=== PATIENT | female | born 1965 ===

== ENCOUNTER 2016-07-24 17:31 | Emergency (ER) | payer OTHER ==
[2016-07-24 17:39] VITALS: BMI 29.0
[2016-07-24 17:41] VITALS: RESP 18; TEMP 98.3
[2016-07-24 18:07] LABS: ADD MANUAL DIFF? NO
[2016-07-24 18:12] LABS: BASO # 0.02 K/mm3 (0.0-2.0); BASO % 0.3 % (0.0-3.0); EOS # 0.3 (0.0-0.7); EOS % 4.2 % (1.5-5.0); GRAN # 3.71 (1.4-6.5); HEMATOCRIT 33.5 % (36.0-48.0); LYMPH # 2.1 (1.2-3.4); LYMPH % 31.9 % (22.0-35.0); MEAN CELL VOLUME 85.2 fL (80.0-105.0); MEAN CORPUSCULAR HGB CONC 32.8 g/dl (31.0-37.0); MEAN PLATELET VOLUME 9.6 fl (7.0-11.0); MONO # 0.5 (0.1-0.6); MONO % 7.6 % (1.0-6.0); PLATELET COUNT 256 10^3/uL (120.0-450.0); RED CELL DISTRIBUTION WIDTH 14.5 % (11.5-14.5); WHITE BLOOD COUNT 6.6 10^3/ul (4.5-11.0)
[2016-07-24 18:21] LABS: ALB/GLOB RATIO 1.1 (1.1-1.8); ALKALINE PHOSPHATASE 105 U/L (38-133); ALT/SGPT 37 U/L (7-56); AST/SGOT 25 U/L (15-39); BILIRUBIN,TOTAL 0.4 mg/dL (0.2-1.3); BLOOD UREA NITROGEN 19 mg/dL (7-21); CALCIUM 9.4 mg/dL (8.4-10.5); CARBON DIOXIDE 33 mmol/L (21-33); CHLORIDE 97 mmol/L (98-107); GFR AFRICAN-AMERICAN > 60; GLUCOSE,RANDOM 98 mg/dL (70-110); SODIUM 136 mmol/L (132-148); TOTAL PROTEIN 7.6 g/dL (5.8-8.3)
--- NOTE | 2016-07-24 18:24 | ED PDOC ---
Arrival/HPI - General Chief Complaint: Chest Pain Time Seen by Provider: 07/24/16 17:42 Historian: Patient - History of Present Illness Narrative History of Present Illness (Text): 07/24/16 18:00 51 year old female presents to the emergency room complaining of left sided chest pain that radiates to the arm. She notes this pain developed last night while in bed. She also reports that the pain went to her shoulders and back today. Patient notes nausea, sweating, but denies any other complaints at this time. PMD: Dr. Claros Time/Duration: 24 hours Symptom Onset: Sudden Symptom Course: Unchanged Activities at Onset: Rest Modifying Factors (Text): none Context: Home Associated Symptoms (Text): sweating, nausea Past Medical History - Provider Review Nursing Documentation Reviewed: Yes - Infectious Disease Hx of Infectious Diseases: None - Tetanus Immunization Tetanus Immunization: Unknown - Cardiac Hx Cardiac Disorders: Yes Hx Hypertension: Yes Hx Pacemaker: No - Pulmonary Hx Respiratory Disorders: Yes Hx Asthma: Yes - Neurological Hx Neurological Disorder: No Hx Paralysis: No - HEENT Hx HEENT Disorder: No - Renal Hx Renal Disorder: No - Endocrine/Metabolic Hx Endocrine Disorders: No - Hematological/Oncological Hx Blood Disorders: No Hx Blood Transfusions: No Hx Blood Transfusion Reaction: No - Integumentary Hx Dermatological Disorder: No - Musculoskeletal/Rheumatological Hx Musculoskeletal Disorders: Yes - Gastrointestinal Hx Gastrointestinal Disorders: Yes - Genitourinary/Gynecological Hx Genitourinary Disorders: No - Psychiatric Hx Psychophysiologic Disorder: No Hx Emotional Abuse: No Hx Physical Abuse: No Hx Substance Use: No - Past Surgical History Past Surgical History: Non-Contributing - Surgical History Hx Orthopedic Surgery: Yes - Anesthesia Hx Anesthesia Reactions: No Hx Malignant Hyperthermia: No - Suicidal Assessment Feels Threatened In Home Enviroment: No Family/Social History - Physician Review Nursing Documentation Reviewed: Yes Family/Social History: No Known Family HX Smoking Status: Former Smoker Hx Alcohol Use: No Amount per day: 0 Hx Substance Use: No Hx Substance Use Treatment: No Allergies/Home Meds Allergies/Adverse Reactions: Allergies aspirin Allergy (Verified 07/24/16 21:46) RASH levofloxacin Allergy (Verified 07/24/16 17:43) RASH moxifloxacin Allergy (Verified 07/24/16 17:43) RASH moxifloxacin HCl [From Avelox] Allergy (Verified 07/24/16 17:43) URTICARIA pineapple Allergy (Verified 07/24/16 17:43) RASH Home Medications: Home Meds Medication Instructions Recorded Confirmed Losartan [Cozaar] 100 mg PO DAILY 06/02/14 03/05/16 Albuterol HFA [Ventolin HFA 90 2 puff INH Q6H PRN 05/29/15 03/05/16 mcg/actuation (8 g)] Budesonide [Pulmicort] 1 puff INH DAILY 05/29/15 03/05/16 Ipratropium 0.02% [Atrovent] 0.5 mg INH PRN PRN 05/29/15 03/05/16 Montelukast Sodium [Singulair] 10 mg PO DAILY 05/29/15 03/05/16 Simvastatin 10 mg PO DAILY 05/29/15 03/05/16 Naproxen 500 mg PO BID PRN 03/01/16 03/05/16 oxyCODONE/Acetaminophen [Percocet 1 tab PO PRN PRN 03/01/16 03/05/16 5/325 mg Tab] Review of Systems - Physician Review All systems were reviewed & negative as marked: Yes - Review of Systems Constitutional: Night Sweats. absent: Fevers Respiratory: absent: Cough Cardiovascular: Chest Pain Gastrointestinal: Nausea Physical Exam Vital Signs Reviewed: Yes Vital Signs Temp Pulse Resp BP Pulse Ox 07/24/16 21:47 81 18 133/68 100 07/24/16 17:40 98.3 F 91 H 18 136/80 98 Temperature: Afebrile Blood Pressure: Normal Pulse: Tachycardic Respiratory Rate: Normal Appearance: Positive for: Well-Appearing, Non-Toxic, Comfortable Pain Distress: None Mental Status: Positive for: Alert and Oriented X 3 - Systems Exam Head: Present: Atraumatic, Normocephalic Pupils: Present: PERRL Extroacular Muscles: Present: EOMI Conjunctiva: Present: Normal Mouth: Present: Moist Mucous Membranes Neck: Present: Normal Range of Motion Respiratory/Chest: Present: Clear to Auscultation, Good Air Exchange. No: Respiratory Distress, Accessory Muscle Use Cardiovascular: Present: Regular Rate and Rhythm, Normal S1, S2. No: Murmurs Abdomen: Present: Normal Bowel Sounds. No: Tenderness, Distention, Peritoneal Signs Upper Extremity: Present: Normal Inspection. No: Cyanosis, Edema Lower Extremity: Present: Normal Inspection. No: Edema Neurological: Present: GCS=15, CN II-XII Intact, Speech Normal Skin: Present: Warm, Dry, Normal Color. No: Rashes Psychiatric: Present: Alert, Oriented x 3, Normal Insight, Normal Concentration Medical Decision Making ED Course and Treatment: 07/24/16 18:00 Impression: 51 year old female with left sided chest pain that radiates to arms. Differential Diagnosis included but are not limited to: r/o acs vs dissection vs pe. Plan: -- EKG -- Chest Xray -- Urinalysis -- Labs -- Zofran -- Reassess and disposition Prior Visits: Notes and results from previous visits were reviewed. Progress Notes: EKG: Ordered, reviewed, and independently interpreted the EKG. Rate : 91 BPM Rhythm : NSR Interpretation : No ST/T changes Comparison : No changes from previous EKG on 07/28/15 07/24/16 22:28 pt reassessed. initialy c/o of "migraine bowden". reglan bendaryl ordered. pt allergic to asa. pt now reports symptoms resolved. suggested obs in hospital. pt declines and states prefers to f/u outpt with cardiology. understands to return with worsening symptoms or concerns. 07/24/16 22:30 noted neg stress 2013. 07/24/16 22:43 pt notified of incident findings encouraged to get ct report and discuss with their pmd - Lab Interpretations Lab Results: 07/24/16 18:00 07/24/16 18:00 Lab Results 07/24/16 18:33: Urine Color Yellow, Urine Appearance Clear, Urine pH 7.0, Ur Specific [place] <= 1.005, Urine Protein Negative, Urine Glucose (UA) Negative, Urine Ketones Negative, Urine Blood Small H, Urine Nitrate Negative, Urine Bilirubin Negative, Urine Urobilinogen 0.2, Ur Leukocyte Esterase Negative, Urine RBC 0 - 2, Urine WBC Negative, Ur Epithelial Cells 0 - 2, Urine HCG, Qual Negative 07/24/16 18:00: WBC 6.6 D, RBC 3.93, Hgb 11.0 L, Hct 33.5 L, MCV 85.2, MCH 28.0 , MCHC 32.8, RDW 14.5, Plt Count 256, MPV 9.6, Gran % 56.0, Lymph % (Auto) 31.9 , [place] % (Auto) 7.6 H, Eos % (Auto) 4.2, Baso % (Auto) 0.3, Gran # 3.71, Lymph # 2.1, [place] # 0.5, Eos # 0.3, Baso # 0.02, PT 10.7, INR 0.99, APTT 27.6, D-Dimer , Quantitative 1.61 H, Sodium 136, Potassium 4.0, Chloride 97 L, Carbon Dioxide 33, Anion Gap 10, BUN 19, Creatinine 0.7, Est GFR ( Amer) > 60, Est GFR ( Non-Af Amer) > 60, Random Glucose 98, Calcium 9.4, Magnesium 2.0, Total Bilirubin 0.4, AST 25, ALT 37, Alkaline Phosphatase 105, Lactate Dehydrogenase 509, Total Creatine Kinase 62, Troponin I < 0.01, NT-Pro-B Natriuret Pep 120, Total Protein 7.6, Albumin 4.0, Globulin 3.6, Albumin/Globulin Ratio 1.1 I have reviewed the lab results: Yes - RAD Interpretation Radiology Orders: 07/24/16 17:52 CHEST PORTABLE [RAD] Stat 07/24/16 20:29 ANGIOGRAPHY DISECTION PROTOCOL [CT] Stat - EKG Interpretation Interpreted by ED Physician: Yes Type: 12 lead EKG - Medication Orders Current Medication Orders: Discontinued Medications Aspirin (Aspirin) 325 mg PO STAT STA Stop: 07/24/16 21:42 Last Admin: 07/24/16 21:45 Dose: Not Given Non-Admin Reason: Patient Refused Diphenhydramine HCl (Benadryl) 25 mg IVP STAT STA Stop: 07/24/16 21:52 Last Admin: 07/24/16 21:54 Dose: 25 MG IVP Administration Document 07/24/16 21:54 SE (Rec: 07/24/16 21:54 SE [id number]) Charges for Administration # of IVP Administrations 1 Diphenhydramine HCl (Benadryl) Confirm Administered Dose 50 mg .ROUTE .STK-MED ONE Stop: 07/24/16 21:52 Last Admin: 07/24/16 21:54 Dose: Iohexol (Omnipaque 350 150 Ml) Confirm Administered Dose 150 ml .ROUTE .STK-MED ONE Stop: 07/24/16 20:55 Metoclopramide HCl (Reglan) 10 mg IVP STAT STA Stop: 07/24/16 21:52 Last Admin: 07/24/16 21:55 Dose: 10 MG IVP Administration Document 07/24/16 21:55 SE (Rec: 07/24/16 21:55 SE [id number]) Charges for Administration # of IVP Administrations 1 Ondansetron HCl (Zofran Inj) 4 mg IVP STAT STA Stop: 07/24/16 17:59 Last Admin: 07/24/16 18:40 Dose: 4 MG IVP Administration Document 07/24/16 18:40 SE (Rec: 07/24/16 18:40 SE [id number]) Charges for Administration # of IVP Administrations 1 - Scribe Statement The provider has reviewed the documentation as recorded by the Zuri Bethea training under Rubio Villalta All medical record entries made by the Doniblakia were at my direction and personally dictated by me. I have reviewed the chart and agree that the record accurately reflects my personal performance of the history, physical exam, medical decision making, and the department course for this patient. I have also personally directed, reviewed, and agree with the discharge instructions and disposition. Disposition/Present on Arrival - Present on Arrival Any Indicators Present on Arrival: No History of DVT/PE: No History of Uncontrolled Diabetes: No Urinary Catheter: No History of Decub. Ulcer: No History Surgical Site Infection Following: None - Disposition Have Diagnosis and Disposition been Completed?: Yes Diagnosis: Chest pain, Headache Disposition: HOME/ ROUTINE Disposition Time: 22:30 Patient Problems: Current Active Problems Problem Status Diagnosed Asthma Acute Asthma attack Acute Chest pain Acute Chronic obstructive lung disease Acute Headache Acute URI (upper respiratory infection) Acute Condition: STABLE Discharge Instructions (ExitCare): Chest Pain (ED), Acute Headache (ED) Additional Instructions: please follow up with your doctor/specialsit. return to er with worsening symptoms or concerns. please discuss the results of your ct with your pmd. you may need additional followup Referrals: Itzel Claros MD [Primary Care Provider] - Follow up with primary Tim Smith MD [Staff Provider] - Follow up with primary
[2016-07-24 18:32] LABS: INR 0.99 (0.93-1.08); PARTIAL THROMBOPLASTIN TIME 27.6 Seconds (23.7-30.8)
[2016-07-24 18:35] LABS: TROPONIN I < 0.01 ng/mL
[2016-07-24 18:51] LABS: URINE BILIRUBIN NEGATIVE (NEGATIVE); URINE BLOOD SMALL (NEGATIVE); URINE GLUCOSE (UA) NEGATIVE (NEGATIVE); URINE KETONE NEGATIVE (NEGATIVE); URINE LEUKOCYTE ESTERASE NEGATIVE Leu/uL (NEGATIVE); URINE PROTEIN NEGATIVE mg/dL (<30 mg/dL); URINE UROBILINOGEN 0.2 E.U./dL (<1 E.U./dL)
[2016-07-24 18:53] LABS: URINE APPEARANCE CLEAR (CLEAR); URINE COLOR YELLOW (YELLOW)
[2016-07-24 19:16] LABS: URINE EPITHELIAL CELLS 0 - 2 /hpf (0-5); URINE RBC 0 - 2 /hpf (0-2); URINE WBC NEGATIVE /hpf (0-6)
[2016-07-24 20:54] LABS: D DIMER 1.61 mg/L FEU (0-0.50)
[2016-07-24] MEDS ORDERED: DiphenhydrAMINE 50 mg/ml Inj ONE (21:51)
[2016-07-24] MEDS ORDERED: DiphenhydrAMINE 50 mg/ml Inj IVP STA (21:51)
[2016-07-24 21:58] VITALS: BP 133/68; PULSE 81; O2SAT 100
--- NOTE | 2016-07-24 22:39 | CT ---
EXAM: CT Angiography Chest Without and With Intravenous Contrast CT Angiography Abdomen and Pelvis Without and With Intravenous Contrast CLINICAL HISTORY: 51 years old, female; Pain; Other: Radiating to back; Chest pain and other: Back; Additional info: Cp radiating to back R/O dissection, pe TECHNIQUE: Axial computed tomographic angiography images of the chest, abdomen and pelvis without and with intravenous contrast using CT angiography protocol. This CT exam was performed using one or more of the following dose reduction techniques: automated exposure control, adjustment of the mA and/or kV according to patient size, and/or use of iterative reconstruction technique. This CT exam was performed using one or more of the following dose reduction techniques: automated exposure control, adjustment of the mA and/or kV according to patient size, and/or use of iterative reconstruction technique. MIP reconstructed images were created and reviewed. Coronal and sagittal reformatted images were created and reviewed. CONTRAST: 148 mL of OMNI 350 administered intravenously. EXAM DATE/TIME: 07/24/2016 8:29 PM COMPARISON: Prior CT chest of 06/02/2015 FINDINGS: LIMITATIONS: Exam is limited by mild respiratory motion artifact. VASCULATURE: AORTA: No evidence of aortic dissection or aneurysm. PULMONARY ARTERIES: Contrast opacification of the pulmonary arteries is adequate, and there are no filling defects seen to suggest pulmonary embolism. GREAT VESSELS OF AORTIC ARCH: No evidence of occlusion or significant stenosis. CELIAC TRUNK AND MESENTERIC ARTERIES: No occlusion or significant stenosis. RENAL ARTERIES: No evidence of occlusion or significant stenosis. ILIAC ARTERIES: No evidence of occlusion or significant stenosis. CHEST: LUNGS: Incidental 7 mm noncalcified pulmonary nodule in the right upper lobe, image 100/series 3, stable in appearance compared to the prior CT. For high -risk patients recommend follow-up CT in 9-15 months. For low-risk patients recommend follow-up CT in 15 months. If no change, no further follow-up. No evidence of significant focal consolidation/infiltrate in the lungs. No evidence of diffuse pulmonary vascular congestion. PLEURAL SPACE: No pneumothorax or pleural effusions seen. HEART: No evidence of significant pericardial effusion. ABDOMEN: LIVER: Fatty infiltration of the liver. GALLBLADDER AND BILE DUCTS: No evidence of acute cholecystitis. PANCREAS: No evidence of acute pancreatitis. SPLEEN: No acute abnormality of the spleen identified. ADRENALS: No acute abnormality of the adrenal glands identified. KIDNEYS AND URETERS: Small 1 cm mildly complex cystic lesion incidentally noted in the right kidney. This has a density suggestive of fluid, and contains a 4 mm calcification in its posterior wall. Recommend further evaluation with renal protocol CT or MRI, on a nonemergent basis. No acute abnormality of the kidneys identified. STOMACH AND BOWEL: Colonic diverticulosis, with no evidence of acute diverticulitis. Otherwise, no significant abnormality of the bowel is identified. No acute abnormality of the stomach or duodenum identified. No evidence of small bowel obstruction. APPENDIX: Normal appendix is not seen, however, there are no significant inflammatory changes visualized in the expected location of the appendix to suggest appendicitis. Recommend clinical correlation. PELVIS: BLADDER: 0 No acute abnormality of the bladder identified. REPRODUCTIVE: No acute abnormality of the uterus identified. No evidence of large adnexal masses. CHEST, ABDOMEN and PELVIS: INTRAPERITONEAL SPACE: No evidence of free air or free fluid. BONES/JOINTS: No acute bony abnormality identified. SOFT TISSUES: No acute abnormality of the soft tissues identified. LYMPH NODES: No evidence of diffuse lymphadenopathy. IMPRESSION: - No evidence of aortic dissection or other significant acute abnormality. - Incidental 7 mm pumonary nodule. See recommendations above. - Incidental small mildly complex cystic lesion in the right kidney. - Colonic diverticulosis. - See above for remaining findings.
--- NOTE | 2016-07-25 10:01 | RAD ---
HISTORY: cp COMPARISON: 12/20/2015 FINDINGS: LUNGS: No active pulmonary disease. PLEURA: No significant pleural effusion identified, no pneumothorax apparent. CARDIOVASCULAR: Normal. OSSEOUS STRUCTURES: No significant abnormalities. VISUALIZED UPPER ABDOMEN: Normal. OTHER FINDINGS: None. IMPRESSION: No active disease.
--- NOTE | 2016-07-25 10:50 | CARD ---
APPROVED REPORT EKG Measurement Heart [id number] <Conclusion> Normal sinus rhythm Normal ECG
== END 2016-07-24 22:49 | disposition home or self-care (01) ==
LOC: ED 17:31
DX: R07.9 Chest pain, unspecified (principal); R51 Headache; I10 Essential (primary) hypertension; Z87.891 Personal history of nicotine dependence
CPT/HCPCS: 71010; 71275; 74175; 80053; 81001; 82550; 83615; 83735; 83880; 84484; 84703; 85025; 85378; 85610; 85730; 93005; 96374; 96375; 99284; J1200; J2405; J2765; Q9967

== ENCOUNTER 2017-03-18 09:26 | Inpatient (IN) | payer OTHER ==
[2017-03-18] MEDS: Albuterol-Ipratrop 3 mg / 0.5 (3 ml) UD IH SCH ×4 (09:50→20:30)
--- NOTE | 2017-03-18 09:57 | ED PDOC ---
Arrival/HPI - General Chief Complaint: Shortness Of Breath Time Seen by Provider: 03/18/17 09:46 - History of Present Illness Narrative History of Present Illness (Text): 51F hx of asthma c/o sob/cough/wheezing for 3 days and blood mixed in with her sputum since yesterday. inhaler not helping. Past Medical History - Infectious Disease Hx of Infectious Diseases: None - Tetanus Immunization Tetanus Immunization: Unknown - Reproductive Menopause: Yes - Cardiac Hx Cardiac Disorders: Yes Hx Hypertension: Yes Hx Pacemaker: No - Pulmonary Hx Respiratory Disorders: Yes Hx Asthma: Yes - Neurological Hx Neurological Disorder: No - HEENT Hx HEENT Disorder: No - Renal Hx Renal Disorder: No - Endocrine/Metabolic Hx Endocrine Disorders: No - Hematological/Oncological Hx Blood Disorders: No - Integumentary Hx Dermatological Disorder: No - Musculoskeletal/Rheumatological Hx Musculoskeletal Disorders: Yes Hx Falls: No - Gastrointestinal Hx Gastrointestinal Disorders: Yes - Genitourinary/Gynecological Hx Genitourinary Disorders: No - Psychiatric Hx Psychophysiologic Disorder: No Hx Emotional Abuse: No Hx Physical Abuse: No Hx Substance Use: No - Past Surgical History Past Surgical History: Non-Contributing - Surgical History Hx Orthopedic Surgery: Yes - Anesthesia Hx Anesthesia Reactions: No Hx Malignant Hyperthermia: No - Suicidal Assessment Feels Threatened In Home Enviroment: No Family/Social History Family/Social History: Other (nc) Smoking Status: Former Smoker Hx Alcohol Use: No Amount per day: 0 Hx Substance Use: No Hx Substance Use Treatment: No Allergies/Home Meds Allergies/Adverse Reactions: Allergies aspirin Allergy (Verified 03/18/17 09:34) RASH levofloxacin Allergy (Verified 03/18/17 09:34) RASH moxifloxacin Allergy (Verified 03/18/17 09:34) RASH moxifloxacin HCl [From Avelox] Allergy (Verified 03/18/17 09:34) URTICARIA pineapple Allergy (Verified 03/18/17 09:34) RASH Home Medications: Home Meds Medication Instructions Recorded Confirmed Losartan [Cozaar] 100 mg PO DAILY 06/02/14 03/18/17 Albuterol HFA [Ventolin HFA 90 2 puff INH Q6H PRN 05/29/15 03/18/17 mcg/actuation (8 g)] Budesonide [Pulmicort] 1 puff INH DAILY 05/29/15 03/18/17 Montelukast Sodium [Singulair] 10 mg PO DAILY 05/29/15 03/18/17 Simvastatin 10 mg PO DAILY 05/29/15 03/18/17 Review of Systems - Physician Review All systems were reviewed & negative as marked: Yes - Review of Systems Constitutional: absent: Fatigue, Fevers Respiratory: SOB, Cough, Sputum, Wheezing Cardiovascular: absent: Chest Pain Gastrointestinal: absent: Nausea, Vomiting Musculoskeletal: Other (r knee pain arthroscopic surgery 3 weeks ago) Neurological: absent: Headache, Focal Weakness Physical Exam Vital Signs Reviewed: Yes Vital Signs Temp Pulse Resp BP Pulse Ox 03/18/17 13:02 85 18 144/72 98 03/18/17 10:00 22 98 03/18/17 09:44 98.8 F 88 18 166/65 H 98 Appearance: Positive for: Non-Toxic Pain Distress: Mild Mental Status: Positive for: Alert and Oriented X 3 - Systems Exam Head: Present: Atraumatic Mouth: Present: Moist Mucous Membranes Nose (Internal): No: Epistaxis Neck: Present: Normal Range of Motion Respiratory/Chest: Present: Wheezes. No: Accessory Muscle Use Cardiovascular: Present: Regular Rate and Rhythm Abdomen: No: Tenderness, Distention Upper Extremity: Present: NORMAL PULSES Lower Extremity: No: Edema Neurological: Present: GCS=15, Motor Func Grossly Intact, Normal Sensory Function Skin: Present: Warm, Dry Psychiatric: Present: Alert, Oriented x 3 Medical Decision Making ED Course and Treatment: ecg- nsr 83, nl axis, nl int, no acute ischemia pt still w sig wheezing and sob despite duoneb x3 disc w Dr Claros who will admit - Lab Interpretations Lab Results: 03/18/17 10:30 03/18/17 10:30 Lab Results 03/18/17 10:30: Sodium 141, Potassium 4.2, Chloride 104, Carbon Dioxide 27, Anion Gap 14, BUN 17, Creatinine 0.6 L, Est GFR ( Amer) > 60, Est GFR ( Non-Af Amer) > 60, Random Glucose 95, Calcium 10.0, Total Bilirubin 0.3, AST 23 , ALT 30, Alkaline Phosphatase 117, Total Protein 7.4, Albumin 4.3, Globulin 3.1 , Albumin/Globulin Ratio 1.4 03/18/17 10:30: pO2 60 H, VBG pH 7.40, VBG pCO2 49.0, VBG HCO3 30.4 H, VBG O2 Sat (Calc) 92.8 H, VBG Base Excess 4.5 H 03/18/17 10:30: WBC 6.6 D, RBC 4.32, Hgb 12.6, Hct 39.1, MCV 90.5, MCH 29.2, MCHC 32.2, RDW 13.8, Plt Count 278, MPV 10.9, Gran % 47.3 L, Lymph % (Auto) 28.4 , [place] % (Auto) 6.7 H, Eos % (Auto) 16.7 H, Baso % (Auto) 0.9, Gran # 3.11, Lymph # 1.9, [place] # 0.4, Eos # 1.1 H, Baso # 0.06 - RAD Interpretation Radiology Orders: 03/18/17 09:53 CHEST PORTABLE [RAD] Stat - Medication Orders Current Medication Orders: Acetaminophen (Tylenol 325mg Tab) 650 mg PO Q6H PRN PRN Reason: Fever >100.4 F Albuterol Sulfate (Albuterol 0.083% Inhal [place] (2.5 Mg/3 Ml) Ud) 2.5 mg INH Q4 SHAQ Last Admin: 03/18/17 15:59 Dose: 2.5 mg Albuterol/Ipratropium (Duoneb 3 Mg/0.5 Mg (3 Ml) Ud) 3 ml IH Q2H PRN PRN Reason: Shortness of Breath Albuterol/Ipratropium (Duoneb 3 Mg/0.5 Mg (3 Ml) Ud) 3 ml IH [id number] [facility] Atorvastatin Calcium (Lipitor) 10 mg PO HS [facility] Losartan Potassium (Cozaar) 100 mg PO DAILY [facility] Last Admin: 03/18/17 15:51 Dose: 100 mg Methylprednisolone (Solu-Medrol) 40 mg IVP Q6 SHAQ Montelukast Sodium (Singulair) 10 mg PO DAILY [facility] Ondansetron HCl (Zofran Inj) 4 mg IVP Q6H PRN PRN Reason: Nausea/Vomiting Oxycodone/Acetaminophen (Percocet 5/325 Mg Tab) 1 tab PO Q4H PRN PRN Reason: Pain, moderate (4-7) Stop: 03/21/17 15:38 Last Admin: 03/18/17 15:52 Dose: 1 tab [facility] Pain Assessment Document 03/18/17 15:52 SG (Rec: 03/18/17 15:52 SG [id number]) Pain Reassessment Is this a pain reassessment? No Sleep Is patient sleeping during reassessment? No Presence of Pain Presence of Pain Yes Re-Assess: [facility] Pain Assessment Document 03/18/17 16:52 SG (Rec: 03/18/17 17:06 SG [id number]) Pain Reassessment Is this a pain reassessment? Yes Sleep Is patient sleeping during reassessment? No Presence of Pain Presence of Pain No Pantoprazole Sodium (Protonix Ec Tab) 40 mg PO 0630 SHAQ Discontinued Medications Albuterol/Ipratropium (Duoneb 3 Mg/0.5 Mg (3 Ml) Ud) 3 ml IH Q15M SHAQ Stop: 03/18/17 10:31 Last Admin: 03/18/17 11:14 Dose: 3 ml Methylprednisolone (Solu-Medrol) 125 mg IVP STAT STA Stop: 03/18/17 09:54 Last Admin: 03/18/17 10:51 Dose: 125 mg IVP Administration Document 03/18/17 10:51 MR (Rec: 03/18/17 10:51 MR [id number]) Charges for Administration # of IVP Administrations 1 Disposition/Present on Arrival - Present on Arrival Any Indicators Present on Arrival: No History of DVT/PE: No History of Uncontrolled Diabetes: No Urinary Catheter: No History of Decub. Ulcer: No History Surgical Site Infection Following: None - Disposition Have Diagnosis and Disposition been Completed?: Yes Diagnosis: Asthma exacerbation Disposition: HOSPITALIZED Disposition Time: 14:09 Condition: STABLE
--- NOTE | 2017-03-18 10:13 | RAD ---
HISTORY: sob COMPARISON: 02/12/2017 FINDINGS: LUNGS: No active pulmonary disease. PLEURA: No significant pleural effusion identified, no pneumothorax apparent. CARDIOVASCULAR: Normal. OSSEOUS STRUCTURES: No significant abnormalities. VISUALIZED UPPER ABDOMEN: Normal. OTHER FINDINGS: None. IMPRESSION: No active disease.
[2017-03-18 10:54] LABS: VENOUS BLOOD GAS BASE EXCESS 4.5 mmol/L (0.0-2.0)
[2017-03-18 11:02] LABS: BASO # 0.06 K/mm3 (0.0-2.0); BASO % 0.9 % (0.0-3.0); EOS # 1.1 (0.0-0.7); EOS % 16.7 % (1.5-5.0); GRAN # 3.11 (1.4-6.5); GRAN % 47.3 % (50.0-68.0); HEMATOCRIT 39.1 % (36.0-48.0); LYMPH # 1.9 (1.2-3.4); LYMPH % 28.4 % (22.0-35.0); MEAN CELL VOLUME 90.5 fl (80.0-105.0); MEAN CORPUSCULAR HEMOGLOBIN 29.2 pg (25.0-35.0); MEAN CORPUSCULAR HGB CONC 32.2 g/dl (31.0-37.0); MEAN PLATELET VOLUME 10.9 fl (7.0-11.0); MONO # 0.4 (0.1-0.6); MONO % 6.7 % (1.0-6.0); RED CELL DISTRIBUTION WIDTH 13.8 % (11.5-14.5); WHITE BLOOD COUNT 6.6 10^3/ul (4.5-11.0)
[2017-03-18 11:16] LABS: ALB/GLOB RATIO 1.4 (1.1-1.8); ALKALINE PHOSPHATASE 117 U/L (38-126); ALT/SGPT 30 U/L (7-56); AST/SGOT 23 U/L (14-36); BILIRUBIN,TOTAL 0.3 mg/dL (0.2-1.3); BLOOD UREA NITROGEN 17 mg/dL (7-21); CARBON DIOXIDE 27 mmol/L (21-33); CHLORIDE 104 mmol/L (98-107); GFR AFRICAN-AMERICAN > 60; GLUCOSE,RANDOM 95 mg/dL (70-110); POTASSIUM 4.2 mmol/L (3.6-5.0); SODIUM 141 mmol/L (132-148); TOTAL PROTEIN 7.4 g/dL (5.8-8.3)
--- NOTE | 2017-03-18 12:32 | CARD ---
APPROVED REPORT EKG Measurement Heart [id number] <Conclusion> Normal sinus rhythm Normal ECG
[2017-03-18] MEDS: Oxycodone/Acetaminophen 5/325 mg Tab PO PRN ×2 (15:52→20:10)
[2017-03-18] MEDS: Albuterol 0.083% Inhal Sol (2.5 mg/3 mL) UD INH SCH ×2 (15:59→20:15)
[2017-03-18] MEDS ORDERED: MethylPREDNISolone 40 mg Vial IV SCH (18:00)
[2017-03-18] MEDS: MethylPREDNISolone 40 mg Vial IVP SCH (18:45)
[2017-03-18] MEDS: Promethazine/Cod 6.25mg-10mg/5ml Syr UD PO PRN (21:22)
[2017-03-18 21:50] VITALS: BMI 39.0
[2017-03-18] MEDS ORDERED: Pneumococcal 23-Valent Vaccine IM ONE (21:50)
[2017-03-18] MEDS ORDERED: Influenza Vaccine 60 mcg/0.5 mL SYR (4YR UP) IM ONE (21:50)
--- NOTE | 2017-03-18 23:44 | HP ---
HISTORY OF PRESENT ILLNESS: The patient is a 51-year-old who came to Emergency Room because of increasing cough, congestion, and shortness of breath. The patient has been using her nebulizer with no significant relief that it has been going on for last 3 to 4 days. She denies any hemoptysis. No hematemesis. No fever or chills. PAST MEDICAL HISTORY: Significant for morbid obesity, hypertension, hyperlipidemia, migraine headache, and asthma. ALLERGIES: SHE IS ALLERGIC TO ASPIRIN, LEVAQUIN, AVELOX, AND PINEAPPLE. MEDICATION AT HOME: She is on Singulair 10 mg daily, losartan 100 mg daily, Pulmicort 1 puff daily, simvastatin 10 mg daily, Protonix 40 daily, and Percocet as needed. SOCIAL HISTORY: She is and lives with her . She used to be a smoker in the past, but does not smoke anymore. REVIEW OF SYSTEMS: Significant for cough, congestion, and shortness of breath. PHYSICAL EXAMINATION: GENERAL: She is awake, alert, oriented, and communicative. VITAL SIGNS: She is afebrile, pulse is 88, respirations are 18, and blood pressure is 144/72. LUNGS: Bilateral expiratory rhonchi. HEART: S1 and S2 audible. ABDOMEN: Soft and nontender. No rebound and no guarding. NEUROLOGICAL: The patient is awake, alert, oriented, and communicative. LABORATORY DATA: WBC of 6.6, hemoglobin of 12.6, hematocrit of 39.1, and platelet of 278. Chemistries: Sodium of 141, potassium of 4.2, chloride of 104, CO2 of 27, BUN of 17, creatinine of 0.6, and blood sugar of 95. LFTs are within normal limits. ASSESSMENT: 1. Asthma exacerbation. 2. Hypertension. 3. Migraine headache. 4. Borderline hyperglycemia. 5. Recent fall and knee surgery for ligament repair. PLAN: We will start the patient on IV steroids, and continue on nebulizer treatment. Monitor her blood sugar. Monitor her blood pressure. We will follow up the patient in a.m. Itzel Claros MD
[2017-03-19] MEDS: Oxycodone/Acetaminophen 5/325 mg Tab PO PRN ×2 (00:19→05:18)
[2017-03-19] MEDS: MethylPREDNISolone 40 mg Vial IVP SCH ×4 (00:31→21:22)
[2017-03-19] MEDS: Albuterol-Ipratrop 3 mg / 0.5 (3 ml) UD IH SCH ×3 (03:00→13:28)
[2017-03-19] MEDS: Albuterol 0.083% Inhal Sol (2.5 mg/3 mL) UD INH SCH ×7 (04:55→23:30)
[2017-03-19] MEDS: Promethazine/Cod 6.25mg-10mg/5ml Syr UD PO PRN ×3 (05:18→21:21)
[2017-03-19] MEDS: Pantoprazole 40 mg EC Tab PO SCH (05:42)
[2017-03-19] MEDS ORDERED: Apap-Butalbital-Caffeine 325-50-40mg Tab PO PRN (11:34)
[2017-03-19] MEDS: Oxycodone/Acetaminophen 10/325 mg Tab PO PRN ×3 (13:18→23:13)
--- NOTE | 2017-03-19 18:57 | PN ---
DATE: SUBJECTIVE: The patient is a 51-year-old, seen and examined, complaints of headache, complaints of right knee pain. She states her right knee is hurting a lot. Cough and congestion seems to be little better. PHYSICAL EXAMINATION: VITAL SIGNS: The patient is afebrile, pulse 60, respirations 22, blood pressure 135/69. LUNGS: Bilateral fair airflow. No rhonchi or crackle. HEART: S1 and S2, audible. ABDOMEN: Soft, nontender. No rebound. No guarding. NEUROLOGIC: The patient is awake, alert, oriented, communicative. Complaints of pain in the right knee, seems to be hurting upon bending. LABORATORY DATA: WBC is 6.6, hemoglobin 12, hematocrit 39, platelets 278. Chemistry; sodium 141, potassium 4.2, chloride 104, CO2 27, BUN 17, creatinine 0.6, blood sugar 170. ASSESSMENT: 1. Asthma exacerbation. 2. Hypertension. 3. Hyperlipidemia. 4. Headache. 5. Right knee status post . PLAN: Give Fioricet as need. Continue nebulizer treatment. I will request for physical therapy evaluation and treatment. Itzel Claros MD
[2017-03-19] MEDS: Insulin Reg-LOW-Coverage SC SCH (21:45)
[2017-03-20] MEDS: Pantoprazole 40 mg EC Tab PO SCH (05:30)
[2017-03-20] MEDS: MethylPREDNISolone 40 mg Vial IVP SCH ×3 (05:30→21:19)
[2017-03-20] MEDS: Albuterol-Ipratrop 3 mg / 0.5 (3 ml) UD IH SCH ×3 (08:16→19:43)
[2017-03-20] MEDS: Albuterol 0.083% Inhal Sol (2.5 mg/3 mL) UD INH SCH ×3 (08:17→19:43)
[2017-03-20] MEDS: Insulin Reg-LOW-Coverage SC SCH ×4 (08:31→21:23)
[2017-03-20] MEDS: Oxycodone/Acetaminophen 10/325 mg Tab PO PRN ×3 (09:25→21:19)
[2017-03-20] MEDS: Promethazine/Cod 6.25mg-10mg/5ml Syr UD PO PRN ×3 (09:25→21:58)
--- NOTE | 2017-03-20 15:45 | PN ---
DATE: SUBJECTIVE: The patient is a 51-year-old, seen and examined, doing well, better. Complaint of some sore throat. Breathing is better, less cough, still has breathing and shortness of breath. PHYSICAL EXAMINATION: VITAL SIGNS: She is afebrile, pulse 74, respirations 20, blood pressure 113/68. LUNGS: Bilateral few expiratory rhonchi. HEART: S1 and S2, audible. ABDOMEN: Soft, obese, nontender. No rebound. No guarding. NEUROLOGIC: The patient is awake, alert, oriented, communicative, ambulatory. ASSESSMENT: 1. Asthma exacerbation. 2. Hypertension. 3. Asthmatic bronchitis. 4. Migraine headache. 5. Hyperlipidemia. PLAN: We will continue the patient on nebulizer treatment. Continue on losartan. Cut down her steroid to . We will revaluate patient in a.m. and make discharge plan. Itzel Claros MD
[2017-03-20] MEDS ORDERED: Alum-Mag Hydrox-Simethicone Susp (30 mL) PO PRN (19:17)
[2017-03-20] MEDS ORDERED: POLYETHYLENE GLYCOL 3350 17 GM/Dose PACKET PO ONE (21:44)
[2017-03-21] MEDS: Albuterol 0.083% Inhal Sol (2.5 mg/3 mL) UD INH SCH ×5 (01:19→19:58)
[2017-03-21] MEDS: Oxycodone/Acetaminophen 10/325 mg Tab PO PRN ×2 (02:45→08:44)
[2017-03-21] MEDS: Albuterol-Ipratrop 3 mg / 0.5 (3 ml) UD IH SCH ×4 (04:05→19:58)
[2017-03-21] MEDS: Pantoprazole 40 mg EC Tab PO SCH (05:52)
[2017-03-21] MEDS: Promethazine/Cod 6.25mg-10mg/5ml Syr UD PO PRN ×3 (05:56→22:23)
[2017-03-21] MEDS: Insulin Reg-LOW-Coverage SC SCH ×4 (08:00→22:00)
[2017-03-21] MEDS: MethylPREDNISolone 40 mg Vial IVP SCH ×2 (10:04→21:11)
[2017-03-21] MEDS ORDERED: Magnesium Citrate Oral SOL (300 ml) PO ONE (10:59)
[2017-03-21] MEDS: Benzocaine/Menthol (Cepacol) Lozenge MT PRN ×2 (11:24→21:11)
[2017-03-21] MEDS: Albuterol-Ipratrop 3 mg / 0.5 (3 ml) UD IH PRN (11:46)
[2017-03-21] MEDS: HYDROmorphone 1 mg/ml ISec IVP PRN ×3 (12:57→21:10)
--- NOTE | 2017-03-21 18:42 | PN ---
DATE: SUBJECTIVE: The patient is a 51-year-old, seen and examined, lying in bed. Complained of cough, congestion and wheezing. Denies any nausea or vomiting. Complained of right knee pain, hurts to walk. She saw Orthopedic few days back to coming to the hospital and was told she need another surgery. Complaining of intractable pain, difficulty walking and Percocet is not helping. PHYSICAL EXAMINATION: VITAL SIGNS: She is afebrile, pulse 72, respirations 21, blood pressure 137/81. LUNGS: Bilateral exploratory rhonchi, diffuse scattered, posteriorly more pronounced. HEART: S1 and S2, audible. ABDOMEN: Soft, nontender. No rebound. No guarding. NEUROLOGIC: The patient is awake, alert, oriented, and communicative. Bilateral leg, no edema. Right knee slight effusion and restricted range of motion. ASSESSMENT: 1. Asthma exacerbation. 2. Asthmatic bronchitis. 3. Hypertension. 4. Hyperlipidemia. PLAN: The patient also complains of constipation. I will give her a dose of Relistor and give her magnesium citrate. I will continue her on nebulizer treatment and IV steroid. We will revaluate the patient in a.m. and make discharge plan if her her lungs are clear. Itzel Claros MD
[2017-03-22] MEDS: Albuterol-Ipratrop 3 mg / 0.5 (3 ml) UD IH SCH ×4 (01:17→20:15)
[2017-03-22] MEDS: Albuterol 0.083% Inhal Sol (2.5 mg/3 mL) UD INH SCH ×4 (01:18→20:15)
[2017-03-22] MEDS: HYDROmorphone 1 mg/ml ISec IVP PRN ×5 (01:32→20:02)
[2017-03-22] MEDS: Pantoprazole 40 mg EC Tab PO SCH (05:34)
[2017-03-22] MEDS: MethylPREDNISolone 40 mg Vial IVP SCH ×2 (09:41→22:37)
[2017-03-22] MEDS: Insulin Reg-LOW-Coverage SC SCH ×4 (11:38→22:35)
--- NOTE | 2017-03-22 13:41 | PN ---
DATE: SUBJECTIVE: The patient is 51 years old, seen and examined. Complained of cough and congestion. Complained of leg pain. Sore throat seemed to be better. PHYSICAL EXAMINATION: VITAL SIGNS: She is afebrile, pulse 60, respirations 18, blood pressure 130/79. LUNGS: Bilateral expiratory rhonchi, coarse, better than yesterday. HEART: S1 and S2 audible. ABDOMEN: Soft. Nontender. No rebound. No guarding. NEUROLOGIC: She is awake, alert, oriented. Able to communicate. Has difficulty ambulating because of the right knee surgery that was done last month. LABORATORY DATA: Blood sugar is 140. ASSESSMENT: 1. Asthma exacerbation. 2. Bronchospasm. 3. Morbid obesity. 4. Hypertension. 5. Hyperlipidemia. 6. Constipation. PLAN: We will continue the patient on nebulizer treatment. I want to cut down the steroid because she is still wheezing. We will reevaluate in the a.m. and if she seems to be her bronchospasm is improved, we will make a discharge plan in the a.m. Itzel Claros MD
[2017-03-22] MEDS: Promethazine/Cod 6.25mg-10mg/5ml Syr UD PO PRN (16:16)
[2017-03-23] MEDS: HYDROmorphone 1 mg/ml ISec IVP PRN ×3 (00:28→09:42)
[2017-03-23] MEDS: Albuterol 0.083% Inhal Sol (2.5 mg/3 mL) UD INH SCH ×4 (00:30→11:32)
[2017-03-23] MEDS: Albuterol-Ipratrop 3 mg / 0.5 (3 ml) UD IH PRN ×2 (00:45→05:15)
[2017-03-23] MEDS: Albuterol-Ipratrop 3 mg / 0.5 (3 ml) UD IH SCH ×2 (02:30→08:01)
[2017-03-23] MEDS: Pantoprazole 40 mg EC Tab PO SCH (06:20)
[2017-03-23] MEDS: Insulin Reg-LOW-Coverage SC SCH (08:51)
[2017-03-23] MEDS: MethylPREDNISolone 40 mg Vial IVP SCH (09:42)
[2017-03-23 11:56] VITALS: BP 133/78; PULSE 79; RESP 20; TEMP 98.7; O2SAT 96
--- NOTE | 2017-03-24 02:37 | DS ---
HISTORY AND HOSPITAL COURSE: The patient is a 51-year-old seen and examined, sitting in chair, seems to be comfortable, and complained of right knee pain. She still has cough and congestion, but much better than before. Still has scanty wheezing. PHYSICAL EXAMINATION: VITAL SIGNS: She is afebrile. Pulse is 60, respirations are 18, and blood pressure 130/79. LUNGS: Bilateral few expiratory rhonchi. HEART: S1 and S2 audible. ABDOMEN: Soft, obese, and nontender. No rebound and no guarding. NEUROLOGIC: The patient is awake, alert, oriented, and able to communicate. ASSESSMENT AND PLAN 1. Asthma exacerbation. 2. Bronchospasm, improving. 3. Asthmatic bronchitis. 4. Morbid obesity. 5. Migraine headache. 6. Hyperlipidemia. PLAN: The patient is going to be discharged home. She is given prescription of Bromfed DM one teaspoon q. 6 hours. p.r.n. She does have nebulizer at home. She has also given Percocet for her right knee pain. She recently has surgery done for some ligament repair, but she does need to be revised in April. She is advised to ambulate. Continue her nebulizer treatment. She is advised to continue her usual medication at home including Singulair, losartan, Pulmicort , simvastatin, pantoprazole, and Percocet as needed. She will followup in office. Itzel Claros MD
== END 2017-03-23 14:13 | disposition home or self-care (01) | DRG 203 ==
LOC: ED 09:26 → ERH 14:09 → 3RNO 15:11 → OBSVTOIN 03-20 11:02
PROVIDERS: ADMIT Internal Medicine; ATTEND Internal Medicine
PROC: 3E0F7GC Introduction of Other Therapeutic Substance into Respiratory Tract, Via Natural or Artificial Opening (ICD-10-PCS; principal; 2017-03-18)
DX: J45.901 Unspecified asthma with (acute) exacerbation (principal); E66.01 Morbid (severe) obesity due to excess calories; G43.909 Migraine, unspecified, not intractable, without status migrainosus; E78.5 Hyperlipidemia, unspecified; I10 Essential (primary) hypertension; R73.9 Hyperglycemia, unspecified; K59.00 Constipation, unspecified; Z68.39 Body mass index [BMI] 39.0-39.9, adult; Z87.891 Personal history of nicotine dependence

== ENCOUNTER 2017-04-20 10:24 | Inpatient (IN) | payer OTHER ==
--- NOTE | 2017-04-20 10:50 | ED PDOC ---
Arrival/HPI - General Time Seen by Provider: 04/20/17 10:41 Historian: Patient - History of Present Illness Narrative History of Present Illness (Text): 04/20/17 10:41 52 y/o female, pmh including asthma/copd/pylonephritis, allergic to fluoroquinolones, c/o coughing/shortness of breath and wheezing for over 2 weeks. Pt. stated that she was seen by her own pmd which gave her amoxicillin for 7 days with limited relief, started to have worsening coughing and new onset of the fever yesterday, on and off wheezing with productive green color phelgm, tmax 101F, no recent traveling, no night sweat, no dizziness, no rash, no other medical or psychological complaints. Past Medical History - Provider Review Nursing Documentation Reviewed: Yes - Infectious Disease Hx of Infectious Diseases: None - Tetanus Immunization Tetanus Immunization: Unknown - Cardiac Hx Cardiac Disorders: Yes Hx Hypertension: Yes - Pulmonary Hx Respiratory Disorders: Yes Hx Asthma: Yes - Neurological Hx Neurological Disorder: No - HEENT Hx HEENT Disorder: No - Renal Hx Renal Disorder: No - Endocrine/Metabolic Hx Endocrine Disorders: No - Hematological/Oncological Hx Blood Disorders: No - Integumentary Hx Dermatological Disorder: No - Musculoskeletal/Rheumatological Hx Musculoskeletal Disorders: Yes Hx Falls: Yes - Gastrointestinal Hx Gastrointestinal Disorders: Yes - Genitourinary/Gynecological Hx Genitourinary Disorders: No - Psychiatric Hx Psychophysiologic Disorder: No Hx Emotional Abuse: No Hx Physical Abuse: No Hx Substance Use: No - Past Surgical History Past Surgical History: Non-Contributing - Surgical History Hx Orthopedic Surgery: Yes - Anesthesia Hx Anesthesia Reactions: No Hx Malignant Hyperthermia: No - Suicidal Assessment Feels Threatened In Home Enviroment: No Family/Social History - Physician Review Nursing Documentation Reviewed: Yes Family/Social History: Unknown Family HX Smoking Status: Former Smoker Hx Alcohol Use: No Amount per day: 0 Hx Substance Use: No Hx Substance Use Treatment: No Allergies/Home Meds Allergies/Adverse Reactions: Allergies latex Allergy (Mild, Verified 03/19/17 08:26) RASH aspirin Allergy (Verified 03/18/17 21:34) RASH levofloxacin Allergy (Verified 03/18/17 21:34) RASH moxifloxacin Allergy (Verified 03/18/17 21:34) RASH moxifloxacin HCl [From Avelox] Allergy (Verified 03/18/17 21:34) URTICARIA ondansetron Allergy (Verified 03/19/17 09:58) ITCHING pineapple Allergy (Verified 03/18/17 21:34) RASH Home Medications: Home Meds Medication Instructions Recorded Confirmed Losartan [Cozaar] 100 mg PO DAILY 06/02/14 04/20/17 Budesonide [Pulmicort] 1 puff INH DAILY 05/29/15 04/20/17 Montelukast Sodium [Singulair] 10 mg PO DAILY 05/29/15 04/20/17 Simvastatin 10 mg PO DAILY 05/29/15 04/20/17 Review of Systems - Review of Systems Constitutional: Fatigue, Fevers Eyes: absent: Vision Changes ENT: absent: Hearing Changes Respiratory: SOB, Cough, Sputum, Wheezing Cardiovascular: absent: Chest Pain Gastrointestinal: absent: Abdominal Pain, Diarrhea, Nausea, Vomiting Neurological: absent: Headache, Dizziness Psychiatric: absent: Anxiety, Depression, Suicidal Ideation Physical Exam Vital Signs Reviewed: Yes Vital Signs Temp Pulse Resp BP Pulse Ox 04/20/17 13:43 89 18 148/79 97 04/20/17 12:03 98.7 F 96 H 18 152/86 H 97 04/20/17 10:31 99.7 F H 81 20 159/90 H 98 Temperature: Afebrile Blood Pressure: Hypertensive Pulse: Regular Respiratory Rate: Normal Appearance: Positive for: Well-Appearing, Non-Toxic, Comfortable Pain Distress: None Mental Status: Positive for: Alert and Oriented X 3 - Systems Exam Head: Present: Atraumatic, Normocephalic Pupils: Present: PERRL Extroacular Muscles: Present: EOMI Conjunctiva: Present: Normal Ears: Present: NORMAL TM, Normal Canal. No: Erythema Mouth: Present: Moist Mucous Membranes Neck: Present: Normal Range of Motion Respiratory/Chest: Present: Clear to Auscultation, Good Air Exchange, Wheezes, Decreased Breath Sounds, Rhonchi. No: Respiratory Distress, Accessory Muscle Use, Retracting, Tachypneic, Tender to Palpation Cardiovascular: Present: Regular Rate and Rhythm, Normal S1, S2, Other (no pedal edema). No: Murmurs Abdomen: Present: Normal Bowel Sounds. No: Tenderness, Distention, Peritoneal Signs Back: Present: Normal Inspection Upper Extremity: Present: Normal Inspection. No: Cyanosis, Edema Lower Extremity: Present: Normal Inspection. No: Edema Neurological: Present: GCS=15, Speech Normal, Motor Func Grossly Intact, Gait Normal, Memory Normal Skin: Present: Warm, Dry, Normal Color. No: Rashes Psychiatric: Present: Alert, Oriented x 3, Normal Insight, Normal Concentration Medical Decision Making ED Course and Treatment: 04/20/17 10:57 -labs/ua/dimer/troponin -ekg -cxr -IVF/solumedrol/duoneb -observe and reassess 04/20/17 14:38 -EKG: NSR @ 82 BPM, no ST elevation or depression, T wave inversion on lead III. -Chest xray No active disease. -Labs show no acute findings with negative troponin, negative BNP, +dimer 372 with CTA ordered. -Rapid flu is negative. -VBG with shock panel show: PH 7.29/PCO2 68.0 (retaining co2)/HCO3 32.7 ( compensating) on room air, lactic acid within normal limit -O2 nasal canuula 2L ordered -Magnesium sulfate 1gm (not full dose) IV ordered with magnesium level 1.9 ( upper limit is 2.2 but she will need this medication for her) -Morphine 2mg IV ordered for the chronic rt. knee pain which she is scheduled for surgery later this month. -CTA show Stable 5 millimeter right middle lobe nodule. Recommend six-month follow-up CT scan of chest to confirm stability. No pulmonary embolus. -Pt. still have scattered wheezing and shortness of breath upon exertion, not stable to be discharged home. -I spoke to Dr. Griffiths which he is covering for Dr. Claros, agreed on the admission plan to tele, admit to DR. Griffiths service. I discussed with Dr. Griffiths that the patient and family request Dr. Alberto Corona for consult. -I discussed with Dr. Coello and he agreed on the treatment and admission plan with labs/radiology studies discussed, he will put in the admission. Reassessment Condition: Re-examined, Improving,but remains with symptoms - Critical Care Critical Care Minutes: 30 minutes Critical Care Time: Unstable Narrative Critical Care (Text): 04/20/17 14:41 continuous wheezing and shortness of breath, requires greens cutter/nebulizer continuous treatment and IV solumedrol. - Lab Interpretations Lab Results: 04/20/17 10:50 04/20/17 10:50 Lab Results 04/20/17 10:50: D-Dimer, Quantitative 372 H 04/20/17 10:50: Influenza Typ A,B (EIA) Negative for flu a/b 04/20/17 10:50: WBC 7.8, RBC 4.56, Hgb 13.3, Hct 41.1, MCV 90.1, MCH 29.2, MCHC 32.4, RDW 13.4, Plt Count 293, MPV 10.8, Gran % 55.0, Lymph % (Auto) 23.5, [place] % (Auto) 6.3 H, Eos % (Auto) 14.4 H, Baso % (Auto) 0.8, Gran # 4.27, Lymph # 1.8 , [place] # 0.5, Eos # 1.1 H, Baso # 0.06 04/20/17 10:50: Sodium 144, Chloride 103, Potassium 4.4, Carbon Dioxide 30, Anion Gap 16, BUN 23 H, Creatinine 0.7, Est GFR ( Amer) > 60, Est GFR ( Non-Af Amer) > 60, Random Glucose 105, Calcium 9.8, Magnesium 1.9, Total Bilirubin 0.4, AST 19, ALT 30, Alkaline Phosphatase 111, Lactate Dehydrogenase 494, Total Creatine Kinase 51, Troponin I 0.01, NT-Pro-B Natriuret Pep 37.5, Total Protein 7.8, Albumin 4.4, Globulin 3.4, Albumin/Globulin Ratio 1.3, Lipase 188 04/20/17 10:50: pO2 35, VBG pH 7.29 L, VBG pCO2 68.0 H*, VBG HCO3 32.7 H, VBG Total CO2 34.8 H, VBG O2 Sat (Calc) 65.9 H, VBG Base Excess 4.0 H, VBG Potassium 4.3, Sodium 140.0, Chloride 105.0, Glucose 107 H, Lactate 1.6, FiO2 21.0, Venous Blood Potassium 4.3 - RAD Interpretation Radiology Orders: 04/20/17 10:53 CHEST PORTABLE [RAD] Stat 04/20/17 11:39 ANGIO CHEST PE PROTOCOL [CT] Stat Chest xray: PROCEDURE: CHEST RADIOGRAPH, 1 VIEW HISTORY: medical clearance COMPARISON: None available. FINDINGS: LUNGS: Clear. PLEURA: No pneumothorax or pleural fluid seen. CARDIOVASCULAR: Normal. OSSEOUS STRUCTURES: No significant abnormalities. VISUALIZED UPPER ABDOMEN: Normal. OTHER FINDINGS: None. IMPRESSION: No active disease. CTA Chest Engineer/Conductor: Radiologist - EKG Interpretation EKG Interpretation (Text): 04/20/17 11:04 -EKG: NSR @ 82 BPM, no ST elevation or depression, T wave inversion on lead III. Interpreted by ED Physician: Yes Type: 12 lead EKG - Medication Orders Current Medication Orders: Sodium Chloride (Sodium Chloride 0.9%) 1,000 mls @ 75 mls/hr IV .[id number] [facility] Last Admin: 04/20/17 11:03 Dose: 75 mls/hr eMAR Start Stop Document 04/20/17 11:03 SF (Rec: 04/20/17 11:03 [id number]) Intravenous Solution Start Date 04/20/17 Start Time 11:03 End Date 04/20/17 Discontinued Medications Acetaminophen (Tylenol 325mg Tab) 650 mg PO STAT STA Stop: 04/20/17 10:54 Last Admin: 04/20/17 11:04 Dose: 650 mg MAR Pain/Vitals Document 04/20/17 11:04 SF (Rec: 04/20/17 11:04 [id number]) Pain Reassessment Is This A Pain ReAssessment? Yes Sleep Is patient sleeping during reassessment? No Presence of Pain Presence of Pain Yes Albuterol/Ipratropium (Duoneb 3 Mg/0.5 Mg (3 Ml) Ud) 3 ml IH Q15M [facility] Stop: 04/20/17 11:31 Last Admin: 04/20/17 11:35 Dose: 3 ml Magnesium Sulfate/Dextrose (Magnesium Sulfate 1 Gm/100 Ml D5w) 1 gm in 100 mls @ 100 mls/hr IVPB ONCE ONE Stop: 04/20/17 12:45 Last Admin: 04/20/17 12:06 Dose: 100 mls/hr eMAR Start Stop Document 04/20/17 12:06 SF (Rec: 04/20/17 12:07 [id number]) Intravenous Solution Start Date 04/20/17 Start Time 12:06 End Date 04/20/17 End time 13:07 Total Infusion Time 61 Methylprednisolone (Solu-Medrol) 125 mg IVP STAT STA Stop: 04/20/17 10:52 Last Admin: 04/20/17 11:03 Dose: 125 mg IVP Administration Document 04/20/17 11:03 SF (Rec: 04/20/17 11:04 SF [id number]) Charges for Administration # of IVP Administrations 1 Morphine Sulfate (Morphine) 2 mg IVP STAT STA Stop: 04/20/17 14:19 Last Admin: 04/20/17 14:38 Dose: 2 mg MAR Pain Assessment Document 04/20/17 14:38 SF (Rec: 04/20/17 14:38 SF [id number]) Pain Reassessment Is this a pain reassessment? Yes Sleep Is patient sleeping during reassessment? No Presence of Pain Presence of Pain Yes Pain Scale Used Pain Scale Used Numeric IVP Administration Document 04/20/17 14:38 SF (Rec: 04/20/17 14:38 SF [id number]) Charges for Administration # of IVP Administrations 1 - PA / MINE CAPTAIN / Resident Statement MD/DO has reviewed & agrees with the documentation as recorded. Disposition/Present on Arrival - Present on Arrival Any Indicators Present on Arrival: No History of DVT/PE: No History of Uncontrolled Diabetes: No Urinary Catheter: No History of Decub. Ulcer: No History Surgical Site Infection Following: None - Disposition Have Diagnosis and Disposition been Completed?: Yes Diagnosis: COPD exacerbation, Shortness of breath on exertion Disposition: HOSPITALIZED Disposition Time: 14:41 Patient Plan: Admission, Telemetry Patient Problems: Current Active Problems Problem Status Onset COPD exacerbation Acute Shortness of breath on exertion Acute Condition: STABLE
[2017-04-20] MEDS: Albuterol-Ipratrop 3 mg / 0.5 (3 ml) UD IH SCH ×4 (11:00→18:27)
[2017-04-20] MEDS: Sodium Chloride 0.9% 1,000 ML IV SCH ×2 (11:03→20:44)
[2017-04-20 11:29] LABS: BASO # 0.06 K/mm3 (0.0-2.0); BASO % 0.8 % (0.0-3.0); EOS # 1.1 (0.0-0.7); EOS % 14.4 % (1.5-5.0); GRAN # 4.27 (1.4-6.5); HEMOGLOBIN 13.3 g/dL (12.0-16.0); LYMPH # 1.8 (1.2-3.4); LYMPH % 23.5 % (22.0-35.0); MEAN CELL VOLUME 90.1 fl (80.0-105.0); MEAN CORPUSCULAR HEMOGLOBIN 29.2 pg (25.0-35.0); MEAN CORPUSCULAR HGB CONC 32.4 g/dl (31.0-37.0); MEAN PLATELET VOLUME 10.8 fl (7.0-11.0); MONO # 0.5 (0.1-0.6); MONO % 6.3 % (1.0-6.0); RBC 4.56 10^6/uL (3.5-6.1); RED CELL DISTRIBUTION WIDTH 13.4 % (11.5-14.5); WHITE BLOOD COUNT 7.8 10^3/ul (4.5-11.0)
[2017-04-20 11:34] LABS: VENOUS BLOOD GAS PO2 35 mm/Hg (30-55); VENOUS BLOOD PH 7.29 (7.32-7.43)
[2017-04-20 11:40] LABS: ALB/GLOB RATIO 1.3 (1.1-1.8); ALBUMIN 4.4 g/dL (3.0-4.8); ALT/SGPT 30 U/L (7-56); AST/SGOT 19 U/L (14-36); BLOOD UREA NITROGEN 23 mg/dL (7-21); CALCIUM 9.8 mg/dL (8.4-10.5); GFR AFRICAN-AMERICAN > 60; GFR NON-AFRICAN AMERICAN > 60; LIPASE 188 U/L (23-300); MAGNESIUM 1.9 mg/dL (1.7-2.2)
[2017-04-20] MEDS ORDERED: Magnesium Sulfate 1 gm in D5W 1 GM/100 ML BAG IVPB ONE (11:46)
--- NOTE | 2017-04-20 11:48 | RAD ---
PROCEDURE: CHEST RADIOGRAPH, 1 VIEW HISTORY: medical clearance COMPARISON: None available. FINDINGS: LUNGS: Clear. PLEURA: No pneumothorax or pleural fluid seen. CARDIOVASCULAR: Normal. OSSEOUS STRUCTURES: No significant abnormalities. VISUALIZED UPPER ABDOMEN: Normal. OTHER FINDINGS: None. IMPRESSION: No active disease.
[2017-04-20 12:00] LABS: B-TYPE NATRIURETIC PEPTIDE 37.5 pg/mL (0-450)
[2017-04-20] MEDS ORDERED: Iodixanol 320 MG/ML 100 ML BOTTLE IV ONE (12:49)
--- NOTE | 2017-04-20 12:49 | CARD ---
APPROVED REPORT EKG Measurement Heart [id number] <Conclusion> Normal sinus rhythm ST abnormality, possible digitalis effect Abnormal ECG
[2017-04-20 13:22] LABS: TROPONIN I 0.01 ng/mL
--- NOTE | 2017-04-20 14:10 | CT ---
PROCEDURE: CT Chest with contrast (Pulmonary Angiogram) HISTORY: cough, wheezing, elevated d-dimer COMPARISON: 07/24/2016 TECHNIQUE: Axial computed tomography images were obtained of the chest in the pulmonary arterial phase of enhancement. Coronal and sagittal reformatted images were created and reviewed. Intravenous contrast dose: Radiation dose: Total exam DLP = mGy-cm. This CT exam was performed using one or more of the following dose reduction techniques: Automated exposure control, adjustment of the mA and/or kV according to patient size, and/or use of iterative reconstruction technique. FINDINGS: PULMONARY ARTERIES: Unremarkable. No pulmonary embolism. AORTA: No acute findings. No thoracic aortic aneurysm. LUNGS: 5 millimeter nodule in the right middle lobe, unchanged. PLEURAL SPACES: Unremarkable. No effusion or pneuomothorax. HEART: Unremarkable. No cardiomegaly. No significant pericardial effusion. LYMPH NODES: No lymphadenopathy. BONES, CHEST WALL: Unremarkable. No fracture or destructive lesion OTHER FINDINGS: Unremarkable. IMPRESSION: Stable 5 millimeter right middle lobe nodule. Recommend six-month follow-up CT scan of chest to confirm stability. No pulmonary embolus.
[2017-04-20] MEDS ORDERED: Morphine 2 mg/ml ISec IVP STA (14:18)
[2017-04-20] MEDS ORDERED: Oxycodone/Acetaminophen 5/325 mg Tab PO STA (16:47)
[2017-04-20] MEDS ORDERED: HYDROmorphone 1 mg/ml ISec IVP STA (16:50)
[2017-04-20 16:54] VITALS: BMI 39.6
[2017-04-20] MEDS ORDERED: HYDROmorphone 0.5 mg/0.5 ml ISec IVP STA (17:39)
[2017-04-20] MEDS: Oxycodone/Acetaminophen 10/325 mg Tab PO PRN (20:24)
[2017-04-20] MEDS: MethylPREDNISolone 40 mg Vial IVP SCH (21:44)
[2017-04-20] MEDS: Albuterol-Ipratrop 3 mg / 0.5 (3 ml) UD IH PRN (23:53)
--- NOTE | 2017-04-21 04:33 | CP.PCM.PN ---
Subjective - Date & Time of Evaluation Date of Evaluation: 04/20/17 Time of Evaluation: 11:00 - Subjective Subjective: called by nurse pt is c/o sever headache pt is is admitted today for copd exacerbation and dr gutierrez asked for evaluation of pt . pt is crying states her headache started today and the light is bothering her and she also feels nauseated. pt has hx of migrain headache was seen in the past by dr gross. but pt does not know what they give her for head ache pt has recieved percocet earliar but no relief. Objective - Vital Signs/Intake and Output Vital Signs (last 24 hours): Temp Pulse Resp BP Pulse Ox 97.7 F 68 22 149/81 97 04/21/17 01:15 04/21/17 01:15 04/21/17 01:15 04/21/17 01:15 04/21/17 01:15 Intake and Output: 04/20/17 04/21/17 18:59 06:59 Intake Total 300 Output Total 100 Balance 200 - Medications Medications: Current Medications Albuterol/Ipratropium (Duoneb 3 Mg/0.5 Mg (3 Ml) Ud) 3 ml IH TID [facility] Stop: 04/21/17 14:01 Last Admin: 04/20/17 18:27 Dose: 3 ml Albuterol/Ipratropium (Duoneb 3 Mg/0.5 Mg (3 Ml) Ud) 3 ml IH Q2H PRN PRN Reason: Shortness of Breath Last Admin: 04/20/17 23:53 Dose: 3 ml Atorvastatin Calcium (Lipitor) 10 mg PO HS [facility] Last Admin: 04/20/17 21:50 Dose: 10 mg Sodium Chloride (Sodium Chloride 0.9%) 1,000 mls @ 75 mls/hr IV .[id number] [facility] Last Admin: 04/20/17 20:44 Dose: 75 mls/hr Losartan Potassium (Cozaar) 100 mg PO DAILY [facility] Last Admin: 04/20/17 16:12 Dose: 100 mg Methylprednisolone (Solu-Medrol) 40 mg IVP Q12 [facility] Last Admin: 04/20/17 21:44 Dose: 40 mg Montelukast Sodium (Singulair) 10 mg PO DAILY [facility] Last Admin: 04/20/17 16:12 Dose: 10 mg Oxycodone/Acetaminophen (Percocet 10/325 Mg Tab) 1 tab PO Q8 PRN PRN Reason: Pain, moderate (4-7) Last Admin: 04/20/17 20:24 Dose: 1 tab Pantoprazole Sodium (Protonix Ec Tab) 40 mg PO DAILY SHAQ - Constitutional Appears: Other - Head Exam Head Exam: NORMOCEPHALIC - Eye Exam Eye Exam: PERRL Pupil Exam: PERRL - ENT Exam ENT Exam: Mucous Membranes Moist - Neck Exam Neck Exam: Full ROM - Respiratory Exam Respiratory Exam: Wheezes - Cardiovascular Exam Cardiovascular Exam: RRR, +S1, +S2 - GI/Abdominal Exam GI & Abdominal Exam: Soft - Rectal Exam Rectal Exam: Deferred - Extremities Exam Extremities Exam: Full ROM - Neurological Exam Neurological Exam: Awake, CN II-XII Intact, Oriented x3 - Psychiatric Exam Additional comments: pt is crying. - Skin Skin Exam: Dry, Warm Assessment and Plan - Assessment and Plan (Free Text) Assessment: migrain head ache . copd exacerbation. Plan: imitrx 6 mg x1 stat given . dr gross consult . continue treatment for copd.
[2017-04-21] MEDS: Albuterol-Ipratrop 3 mg / 0.5 (3 ml) UD IH SCH ×3 (08:21→14:48)
[2017-04-21] MEDS: MethylPREDNISolone 40 mg Vial IVP SCH ×2 (10:02→21:47)
[2017-04-21] MEDS: Promethazine 6.25 MG/5 ML CUP PO SCH ×3 (10:03→17:52)
[2017-04-21] MEDS: Pantoprazole 40 mg EC Tab PO SCH (10:03)
[2017-04-21] MEDS: HYDROmorphone 0.5 mg/0.5 ml ISec IVP PRN ×3 (10:04→22:59)
[2017-04-21] MEDS: Oxycodone/Acetaminophen 10/325 mg Tab PO PRN (13:05)
[2017-04-21] MEDS: Valproate 500 MG in Sodium Chloride 0.9% 100 ML IVPB SCH ×2 (15:24→21:46)
[2017-04-21] MEDS: Albuterol-Ipratrop 3 mg / 0.5 (3 ml) UD IH PRN (19:05)
--- NOTE | 2017-04-21 19:50 | CON ---
DATE: 04/21/2017 NEUROLOGY CONSULTATION CHIEF COMPLAINT: Headache. HISTORY OF PRESENT ILLNESS: This is a 52-year-old woman, well known to me from the past with history of chronic migraines, was recently on Topamax, has been off Topamax in the past years since her migraines were stable; COPD and hypertension, who came into the hospital for shortness of breath and wheezing over the past two weeks and found to be in COPD exacerbation, currently on antibiotics plus steroids. She had worsening diffuse cluster headache with some blurry vision and occasional dizziness. Currently since one dose of IV Depakote over 60 minutes and Imitrex, headaches has been much better. PAST MEDICAL HISTORY: Migraine headaches, COPD, and obesity. ALLERGIES: LATEX, ASPIRIN, LEVOFLOXACIN, MOXIFLOXACIN, FLUOROQUINOLONES. REVIEW OF SYSTEMS: A 14-point review of systems is negative except as per the HPI. SOCIAL HISTORY: No illicit drug use, smoking, or EtOH abuse. FAMILY HISTORY: Noncontributory. PHYSICAL EXAMINATION VITAL SIGNS: Temperature 98.1, pulse rate of 71, blood pressure 147/80, respiratory rate 21, oxygen saturation 97% on room air. GENERAL: The patient is sitting up in bed, in no acute distress.. HEENT: Atraumatic and normocephalic. PERRLA. Extraocular muscles intact. NECK: Supple. No JVD. No adenopathy noted. LUNGS: Decreased breath sounds bilaterally. HEART: S1 and S2. Normal rate and rhythm. No murmurs, rubs, or gallops. ABDOMEN: Soft, nontender and nondistended. Bowel sounds are present. EXTREMITIES: No clubbing. No cyanosis. Peripheral pulses are 2+ felt bilaterally. NEUROLOGIC: The patient is alert and oriented to person, place, month and year. Speech is fluent without any errors. Cranial nerves II through XII are intact. Motor exam: Moves all extremities equally. Toes are downgoing bilaterally. Sensory exam, light touch, pinprick, proprioception and vibration intact. DTRs are 2+ throughout, Coordination: [id number] intact. Gait is deferred for now. LABORATORY DATA: Sodium is 144, potassium 4.4, chloride 102, carbon dioxide 30, BUN 23, creatine 0.7, random glucose 105. ASSESSMENT AND PLAN: A 52-year-old woman with history of chronic migraines, was usually on Topamax, was off for years since headaches have been better, history of chronic obstructive pulmonary disease, overweight, hypertension, who came for worsening shortness of breath and cough and wheezing and found to have chronic obstructive pulmonary disease exacerbation, undergoing treatment and worsening headaches, diffuse pressure type with some auras. Overall impression is worsening migraines given her chronic obstructive pulmonary disease, has exacerbated. RECOMMENDATIONS: At this time, we recommend; 1. I gave her one stat dose of IV Depakote 500 mg slowly infused over 60 minutes. She is doing much better. 2. Recommend Fioricet 1 tablet q. 6 hours p.r.n. for acute onset of headache. 3. Topamax 50 mg p.o. at bedtime for headache prevention. 4. Continue with management for underlying COPD and can follow up as an outpatient. Alban Flores MD
[2017-04-22] MEDS: Oxycodone/Acetaminophen 10/325 mg Tab PO PRN ×3 (02:36→22:52)
[2017-04-22] MEDS: Albuterol-Ipratrop 3 mg / 0.5 (3 ml) UD IH PRN ×2 (02:50→18:08)
[2017-04-22] MEDS: HYDROmorphone 0.5 mg/0.5 ml ISec IVP PRN ×3 (04:44→17:49)
[2017-04-22] MEDS: Valproate 500 MG in Sodium Chloride 0.9% 100 ML IVPB SCH ×3 (05:03→22:45)
--- NOTE | 2017-04-22 06:09 | HP ---
CHIEF COMPLAINT AND HISTORY OF PRESENT ILLNESS: This is a 52-year-old female who has come into the hospital with a past medical history of asthma, COPD. The patient has been having cough and shortness of breath. She has been wheezy for the last two weeks. She had gone to her primary care doctor and received seven days of antibiotics. She started having cough that continued to worsen. She had a temperature of 101 with greenish sputum production. The patient was admitted for further evaluation. She has no complaints of any abdominal pain or back pain. No dysuria or frequency. No weakness in the arms or the legs. The patient also is complaining of headaches. She does have history of migraine headaches. She says her headaches are better today. She had a CT of the chest that shows a stable 5 mm right middle lobe nodule. There is no pulmonary embolism. REVIEW OF SYSTEMS: All other review of symptoms are within normal limits except as mentioned. ALLERGIES: LATEX, ASPIRIN, LEVAQUIN, AVELOX, PINEAPPLE. MEDICATIONS: Has been reviewed on the [facility]. SOCIAL HISTORY: She is . Lives with her . She was a past smoker. FAMILY HISTORY: Noncontributory. PAST MEDICAL HISTORY: Hyperlipidemia, migraine headaches, asthma, obesity, hypertension. PHYSICAL EXAMINATION VITAL SIGNS: Temperature is 98.1, pulse is 71, blood pressure 147/82, respirations 21, and O2 saturation 97%. GENERAL: The patient lying in bed, uncomfortable, and in no acute distress. HEENT: Atraumatic and normocephalic. Anicteric sclerae. Moist mucosa. [place] conjunctivae. No oral lesions. NECK: No JVD, anterior and posterior adenopathy, thyromegaly, or bruits. CARDIOVASCULAR: S1 and S2 regular. No murmur, rubs, or gallop. LUNGS: Clear to auscultation bilaterally. No rales or rhonchi. She has bilateral wheezing. Poor air entry. ABDOMEN: Bowel sounds are positive. Soft, nontender and nondistended. No hepatosplenomegaly. No rebound and no guarding EXTREMITIES: No cyanosis, clubbing, or edema. NEUROLOGIC: No facial asymmetry. Tongue is midline. No uvula deviation. Power is 5/5 upper extremity and lower extremity. Sensation intact in upper extremity and lower extremity. PSYCHIATRIC: She is awake, alert and oriented x3. No anxiety or depression. She has normal affect. GENITOURINARY: No CVA tenderness. VASCULAR: 2+ pulses in the carotid pulses and pedal pulses. SKIN: No erythema or nodules SPINE: Shows normal curvature. LABORATORY DATA: White count is 7.8. D-dimer is shows a pH of 7.29, venous pCO2 of 68. Creatinine 0.7. Influenza was negative. DIAGNOSTIC DATA: EKG done shows sinus rhythm with heart rate of 82. QTC is 406. Chest x-ray done showed no active disease. ASSESSMENT: 1. Acute chronic obstructive pulmonary disease exacerbation. 2. A 5 mm right middle lobe nodule. 3. Migraine headaches. 4. Obese with a BMI of 39. 5. Hypertension. PLAN: The patient is currently comfortable. She is going to be admitted to the hospital. She has been placed on acetylcysteine. She is going to be on nebulizer treatment. The patient is on Lipitor for dyslipidemia. She is on promethazine for cough. She is on Singulair. She is going to continue with Solu-Medrol. She is getting nebulizer treatments. She is on valproic. She is receiving heart-healthy diet. We will get consultation with Pulmonary for her pulmonary nodule and for COPD. Luis Yan MD
--- NOTE | 2017-04-22 07:27 | CON ---
DATE: 04/22/2017 PULMONARY CONSULTATION REASON FOR CONSULTATION: Asthma. REFERRING PHYSICIAN: Luis Yan MD HISTORY OF PRESENT ILLNESS: The patient is a 52-year-old female, with past medical history significant for chronic obstructive pulmonary disease, positive former smoker, asthma, who presents to [facility] with a 10-day history of worsening shortness of breath at rest, dyspnea on exertion, cough, and minimal sputum production. There is no history of chest pain, coughing up of blood, or chest pain - made worse with deep respirations. The patient did present to [facility] with low grade fevers (99.7). These fevers have now resolved. No history of chills or infectious exposure. No history of night sweats, weight loss or appetite change prior to the above events. No history of leg or calf pains. No history of syncope or diaphoresis. No history of recent travel or trauma. REVIEW OF SYSTEMS: No history of nausea, vomiting or diarrhea. No acute urinary symptoms. No new neurologic or musculoskeletal complaints. Rest of the review of systems negative. ALLERGIES: LATEX, ASPIRIN, AND FLUOROQUINOLONES. SOCIAL HISTORY: Positive for tobacco and no alcohol. FAMILY HISTORY: No inheritable diseases. HOME MEDICATIONS: Include simvastatin, Protonix, Percocet, Singulair, Cozaar, Pulmicort, and albuterol HFA PHYSICAL EXAMINATION GENERAL: The patient is not short of breath at rest. She is not using accessory muscles for breathing. VITAL SIGNS: Temperature is 97.7, pulse 77, respirations 18, blood pressure 149/81. Oxygen saturation on nasal cannula is 97%. HEENT: Normocephalic, atraumatic. No JVD. CARDIOVASCULAR: Positive S1, S2. No S3 gallop. LUNGS: Decreased breath sounds at the bases. Minimal bilateral rhonchi and wheezing. EXTREMITIES: Mild edema. No cyanosis, no clubbing. Calves are nontender to palpation. GI: Abdomen is soft, nontender and nondistended. Bowel sounds are positive. SKIN: No acute rash. NEUROLOGIC: Limited at the present time. PERTINENT LABORATORY DATA: CAT scan of the chest was done on 04/20/2017 - as an angiogram protocol. There is no pulmonary embolism noted. There is no acute consolidation, mass or lymphadenopathy. There is a 5 mm nodule noted in the right middle lobe - unchanged. CBC: White count 7.8, hemoglobin 13.3, hematocrit 41.1, platelets of 293,000. IMPRESSION: 1. Acute bronchitis. 2. Asthma. 3. Chronic obstructive pulmonary disease. 4. Solitary pulmonary nodule - right middle lobe. PLAN: The patient presents to [facility] with a 10-day history of worsening pulmonary symptoms. As above, she did present with low grade fevers. The fevers have now resolved. I did review the CAT scan of the chest - done as an angiogram protocol. There is a small, 5 mm nodule noted in the right middle lobe. Otherwise, there are no other acute or significant findings. On physical exam, the patient is in [id number] bronchospasm. I will continue the current nebulizer treatments and current intravenous steroids for now. I will also add inhaled Pulmicort this morning. Clinical status of the patient is certainly improved - compared to the initial presentation. Additional pulmonary intervention will be based on the clinical status of the patient. I did give the patient my card/information for an office followup-- concerning her pulmonary nodule. She does agree to follow up with me in the office. I will discuss the above with Dr. Yan. Thank you very much for this pulmonary consultation. Beni Rhoades MD [facility]
[2017-04-22] MEDS: Budesonide 0.5 mg/2 ml Inhal Susp UD IH SCH ×2 (08:45→20:56)
[2017-04-22] MEDS: Albuterol-Ipratrop 3 mg / 0.5 (3 ml) UD IH SCH ×2 (08:45→20:56)
[2017-04-22] MEDS: Acetylcysteine 20% Inhal Soln (4ml) IH SCH ×2 (08:45→20:56)
[2017-04-22] MEDS: Pantoprazole 40 mg EC Tab PO SCH (10:08)
[2017-04-22] MEDS: Promethazine 6.25 MG/5 ML CUP PO SCH ×3 (10:10→17:48)
[2017-04-22] MEDS: MethylPREDNISolone 40 mg Vial IVP SCH ×2 (10:10→22:53)
[2017-04-22] MEDS: POLYETHYLENE GLYCOL 3350 17 GM/Dose PACKET PO SCH ×2 (10:12→17:48)
[2017-04-23] MEDS ORDERED: HYDROmorphone 2 mg/ml ISec ONE (00:22)
[2017-04-23] MEDS: HYDROmorphone 2 mg/ml ISec IVP PRN ×4 (00:25→19:11)
--- NOTE | 2017-04-23 02:55 | PN ---
DATE: 04/22/2017 SUBJECTIVE: The patient has no complaints of any chest pain. No shortness of breath. No headaches. PHYSICAL EXAMINATION VITAL SIGNS: Temperature is 97.9, pulse of 65, blood pressure 134/82, and respirations 20. GENERAL: The patient is lying in bed, flat, comfortable. HEENT: No oral lesion. Anicteric sclerae. Moist mucosa. NECK: No JVD, adenopathy, or thyromegaly. CARDIOVASCULAR: S1 and S2, regular. No murmurs, rubs, or gallops. LUNGS: Clear to auscultation bilaterally. No wheeze, rales, or rhonchi. ABDOMEN: Bowel sounds are positive, soft, nontender and nondistended. EXTREMITIES: No cyanosis, clubbing or edema. LABORATORY DATA: White count of 7.8 and hemoglobin 13.3. ASSESSMENT: 1. Acute chronic obstructive pulmonary disease exacerbation. 2. Levaquin allergy. 3. A 5-mm right middle lobe nodule. 4. Migraine headache. 5. Obesity. 6. Hypertension. 7. Constipation. PLAN: The patient The patient is receiving Lipitor for dyslipidemia. She is on promethazine for her cough. She is on Singulair. She is going to with her Solu-Medrol. The patient is on Norflex for her migraine headache. She is on oxygen therapy. She is being followed by , who will see her for the lung nodule. Luis Yan MD
[2017-04-23] MEDS: Valproate 500 MG in Sodium Chloride 0.9% 100 ML IVPB SCH ×3 (05:48→22:21)
[2017-04-23] MEDS ORDERED: Azithromycin 500 MG in Sodium Chloride 0.9% 250 ML IVPB SCH (07:15)
--- NOTE | 2017-04-23 07:29 | PN ---
DATE: 04/23/2017 PULMONARY NOTE SUBJECTIVE: The patient appears comfortable this morning. She is not short of breath at rest. PHYSICAL EXAMINATION: VITAL SIGNS: (Last noted in the computer): Temperature is 97.9, pulse 65, respirations 18/20, blood pressure 134/83. Oxygen saturation on nasal cannula is 97%. HEENT: Normocephalic, atraumatic. NECK: No JVD. CARDIOVASCULAR: Positive S1, S2. No S3 gallop. LUNGS: Decreased breath sounds at the bases. Less rhonchi. Less wheezing. EXTREMITIES: Mild edema. No cyanosis, no clubbing. Calves are nontender to palpation. GI: Abdomen is soft, nontender and nondistended. Bowel sounds are positive. SKIN: No acute rash. NEUROLOGIC: Exam limited at the present time. IMPRESSION: 1. Acute bronchitis. 2. Asthma. 3. Chronic obstructive pulmonary disease. 4. Solitary pulmonary nodule - right middle lobe. PLAN: The patient appears comfortable this morning. She is not short of breath at rest. She does state to feeling better overall. On physical exam, her bronchospasm is less. I will change the nebulizer treatments to every 6 [id number], and try decreasing the intravenous steroids this morning. This morning, the patient did state to a changing color of her sputum (slightly greenish). I will start the patient on oral azithromycin this morning. There are no temperatures noted. Clinical status of the patient is certainly improved - compared to the initial presentation. I will discuss the above with Dr. Yan. Beni Rhoades MD [facility]
[2017-04-23] MEDS: Budesonide 0.5 mg/2 ml Inhal Susp UD IH SCH ×2 (07:42→21:30)
[2017-04-23] MEDS: Acetylcysteine 20% Inhal Soln (4ml) IH SCH ×2 (07:42→21:30)
[2017-04-23] MEDS: Albuterol-Ipratrop 3 mg / 0.5 (3 ml) UD IH SCH ×3 (07:42→21:30)
[2017-04-23] MEDS: Pantoprazole 40 mg EC Tab PO SCH (09:48)
[2017-04-23] MEDS: MethylPREDNISolone 40 mg Vial IVP SCH ×2 (09:49→22:16)
[2017-04-23] MEDS: POLYETHYLENE GLYCOL 3350 17 GM/Dose PACKET PO SCH ×2 (09:49→17:23)
[2017-04-23] MEDS: Promethazine 6.25 MG/5 ML CUP PO SCH ×3 (09:49→17:24)
[2017-04-23] MEDS: Oxycodone/Acetaminophen 10/325 mg Tab PO PRN ×2 (09:59→17:23)
--- NOTE | 2017-04-23 10:18 | DS ---
HISTORY OF PRESENT ILLNESS: This is a 52-year-old female who had come into the hospital because of an acute COPD exacerbation. The patient has been receiving IV steroids as well as nebulizer treatments. She was having improvement of her symptoms. She has no complaints of any headaches or dizziness. No nausea or vomiting. She is able to ambulate. PHYSICAL EXAMINATION: VITAL SIGNS: Temperature is 97.9, pulse is 65, blood pressure 134/83. ASSESSMENT: 1. Acute chronic obstructive pulmonary disease exacerbation. 2. LEVAQUIN ALLERGY. 3. A 5 mm lung nodule. 4. Migraine headaches. 5. Obesity. 6. Hypertension. 7. Constipation. 8. Osteoarthritis with the right knee pain. PLAN: The patient is on Dilaudid for right knee pain. She is on Lipitor for dyslipidemia. She is on MiraLAX for constipation. She gets Percocet for pain as well. The patient is receiving Solu-Medrol. She is being followed by . She does have lung nodule and will be followed as an outpatient for this. Condition is stable. Activities, increase as tolerated. Luis Yan MD
[2017-04-23] MEDS: Albuterol-Ipratrop 3 mg / 0.5 (3 ml) UD IH PRN (18:13)
[2017-04-23] MEDS ORDERED: Vancomycin 1gm in NS 250ml 1 GM/250 ML BAG IVPB STA (23:04)
[2017-04-23] MEDS: Cefepime 1gm in NS 100ml 1 GM/100 ML BAG IVPB SCH (23:44)
[2017-04-24] MEDS: HYDROmorphone 2 mg/ml ISec IVP PRN ×4 (00:55→21:06)
[2017-04-24 05:12] LABS: URINE BILIRUBIN NEGATIVE (NEGATIVE); URINE BLOOD SMALL (NEGATIVE); URINE GLUCOSE (UA) NEGATIVE (NEGATIVE); URINE LEUKOCYTE ESTERASE NEGATIVE Leu/uL (NEGATIVE); URINE NITRATE NEGATIVE (NEGATIVE); URINE PROTEIN NEGATIVE mg/dL (<30 mg/dL); URINE UROBILINOGEN 0.2 E.U./dL (<1 E.U./dL)
[2017-04-24 05:27] LABS: URINE APPEARANCE CLEAR (CLEAR); URINE COLOR YELLOW (YELLOW)
[2017-04-24] MEDS: Valproate 500 MG in Sodium Chloride 0.9% 100 ML IVPB SCH (05:37)
[2017-04-24 06:09] LABS: URINE WBC 0 - 2 /hpf (0-6)
[2017-04-24 06:10] LABS: URINE BACTERIA RARE (NEG)
[2017-04-24] MEDS: Oxycodone/Acetaminophen 10/325 mg Tab PO PRN ×2 (06:12→13:55)
[2017-04-24] MEDS: Cefepime 1gm in NS 100ml 1 GM/100 ML BAG IVPB SCH ×3 (06:52→21:06)
[2017-04-24] MEDS: Budesonide 0.5 mg/2 ml Inhal Susp UD IH SCH ×2 (07:41→20:03)
[2017-04-24] MEDS: Albuterol-Ipratrop 3 mg / 0.5 (3 ml) UD IH SCH ×3 (07:41→20:03)
[2017-04-24] MEDS: Acetylcysteine 20% Inhal Soln (4ml) IH SCH ×2 (07:41→20:02)
--- NOTE | 2017-04-24 07:49 | PN ---
DATE: 04/24/2017 PULMONARY NOTE SUBJECTIVE: The patient appears comfortable this morning. She is not short of breath at rest. PHYSICAL EXAMINATION: VITAL SIGNS: (Last noted in the computer): Temperature is 98.7, pulse 73, respirations 18/20, and blood pressure 132/74. Oxygen saturation on room air is 97%. HEENT: Normocephalic, atraumatic. NECK: No JVD. CARDIOVASCULAR: Positive S1 and S2. No S3 gallop. LUNGS: Improved breath sounds at the bases. Much less rhonchi. Few/much less wheezes. GASTROINTESTINAL: Abdomen is soft, nontender, and nondistended. Bowel sounds are positive. EXTREMITIES: Mild edema. No cyanosis, no clubbing. Calves are nontender to palpation. SKIN: No acute rash. NEUROLOGIC: Limited at the present time. IMPRESSION: 1. Acute bronchitis. 2. Asthma. 3. Chronic obstructive pulmonary disease. 4. Solitary pulmonary nodule - right middle lobe. PLAN: The patient appears comfortable this morning. She is not short of breath at rest. She does state to feeling better overall. I did discuss the case with the night nurse at length. The night nurse stated that the patient had pretty good night. On physical exam, her bronchospasm continues to slowly resolve. In addition, the alveolar arterial gradient also continues to resolve. Last oxygen saturation-- noted on room air-- is 97%. I will continue the current nebulizer treatments and decrease the intravenous steroids this morning. The patient remains on antibiotic therapy. There are no temperatures noted. There is no leukocytosis. Clinical status of the patient is significantly improved. I will discuss the above with Dr. Yan. Beni Rhoades MD JOS[facility]
--- NOTE | 2017-04-24 08:11 | HP ---
CHIEF COMPLAINT AND HISTORY OF PRESENT ILLNESS: This is a 65-year-old female who is coming into the hospital. She was hypotensive. The patient had history of gastric sleeve. The patient said that she had a syncopal episode at home. She had a fall. She does not remember having loss of consciousness. She has no complaints of any headaches or dizziness. No nausea, no vomiting. No fevers or chills. She said that she hit her head and does have a mild headache. The patient has no dysuria, frequency or nocturia. The patient said she is feeling better. She was given boluses overnight and IV fluids and she still has low blood pressure. She is not symptomatic from her low blood pressure. REVIEW OF SYSTEMS: All other review of symptoms are within normal limits except as mentioned. ALLERGIES: NO KNOWN DRUG ALLERGIES. HOME MEDICATIONS: Have been reviewed on the [facility]. PAST MEDICAL HISTORY: Dyslipidemia, hypertension, hypothyroidism, diabetes type 2, carpal tunnel syndrome, sarcoidosis. SOCIAL HISTORY: She was a smoker, but quit about 20 years ago. She had three C-sections. FAMILY HISTORY: Noncontributory. PHYSICAL EXAMINATION: VITAL SIGNS: Temperature is 97.4, blood pressure is 99/57, respirations 18. The patient's height is 4 feet 11 inches, weight is 110 pounds, BMI is 22.2. GENERAL: The patient lying in bed, uncomfortable, and in no acute distress. HEENT: Atraumatic and normocephalic. Anicteric sclerae. Moist mucosa. Ruby conjunctivae. No oral lesions. NECK: No JVD, anterior and posterior adenopathy, thyromegaly, or bruits. CARDIOVASCULAR: S1 and S2 regular. No murmur, rubs, or gallop. LUNGS: Clear to auscultation bilaterally. No wheezes, rales, or rhonchi. ABDOMEN: Bowel sounds are positive. Soft, nontender and nondistended. No hepatosplenomegaly. No rebound and no guarding EXTREMITIES: No cyanosis, clubbing, or edema. NEUROLOGIC: No facial asymmetry. Tongue is midline. No uvula deviation. Power is 5/5 upper extremity and lower extremity. Sensation intact in upper extremity and lower extremity. PSYCHIATRIC: She is awake, alert and oriented x3. No anxiety or depression. She has normal affect. GENITOURINARY: No CVA tenderness. VASCULAR: 2+ pulses in the carotid pulses and pedal pulses. SKIN: No erythema or nodules. SPINE: Shows normal curvature. LABORATORY DATA: Labs have been reviewed. White count of 6.2, hemoglobin 11.7. Chemistry shows the potassium is 5.9, creatinine is 1.9, baseline creatinine is 0.8. Urine shows blood is negative, nitrates are negative, bilirubin is negative. The patient's CT of the head done, shows nonspecific white matter changes. Chest x-ray done shows no active disease. ASSESSMENT: 1. Syncope. 2. Hypotension. 3. Acute kidney injury. 4. Diabetes type 2. 5. Hypothyroidism. 6. Dyslipidemia. PLAN: The patient is going to be admitted to the hospital. We will hold her blood pressure medications because of her low blood pressure. The patient is on IV fluids, she will continue the IV fluids. We will give another 300 bolus of normal saline. We will also get the patient to be seen by Cardiology and Neurology. She will be on heart healthy diet. She will also need physical therapy. She is going to be placed in heart healthy diet. I will repeat her blood work tomorrow. Luis Yan MD
--- NOTE | 2017-04-24 08:48 | PN ---
DATE: 04/24/2017 SUBJECTIVE: The patient has no complaints of any chest pain. No shortness of breath. No headaches. She did have a low grade fever yesterday. She says she gets shortness of breath with exertion, but has improved since she has been in the hospital. PHYSICAL EXAMINATION: VITAL SIGNS: Temperature is 98.7, pulse of 73, blood pressure 132/74, and respirations 20. GENERAL: The patient is lying in bed, flat, comfortable. HEENT: No oral lesion. Anicteric sclerae. Moist mucosa. NECK: No JVD, adenopathy, or thyromegaly. CARDIOVASCULAR: S1 and S2, regular. No murmurs, rubs, or gallops. LUNGS: Clear to auscultation bilaterally. No wheeze, rales, or rhonchi. ABDOMEN: Bowel sounds are positive, soft, nontender and nondistended. EXTREMITIES: No cyanosis, clubbing or edema. ASSESSMENT: 1. Acute chronic obstructive pulmonary disease exacerbation. 2. Levaquin allergy. 3. A 5-mm nodule. 4. Migraine headache. 5. Obesity. 6. Hypertension. 7. Constipation. 8. Osteoarthritis with right knee pain. PLAN: The patient is currently on losartan. She is going to continue with Dilaudid for pain. The patient is on nebulizer treatment. She is on Lipitor for dyslipidemia. The patient is on MiraLax for constipation. She is on steroids daily. The patient is azithromycin for her antibiotics. She is on heart-healthy diet. She did have low grade fever, although I did not in the computer. Luis Yan MD
[2017-04-24] MEDS: MethylPREDNISolone 40 mg Vial IVP SCH ×2 (10:12→21:05)
[2017-04-24] MEDS: POLYETHYLENE GLYCOL 3350 17 GM/Dose PACKET PO SCH ×2 (10:12→17:21)
[2017-04-24] MEDS: Promethazine 6.25 MG/5 ML CUP PO SCH ×4 (10:12→21:05)
[2017-04-24] MEDS: Pantoprazole 40 mg EC Tab PO SCH (10:12)
[2017-04-24] MEDS: Benzocaine/Menthol (Cepacol) Lozenge MT SCH ×3 (14:02→21:05)
--- NOTE | 2017-04-24 15:50 | CP.PCM.CON ---
History of Present Illness - History of Present Illness History of Present Illness: 52 year old female with PMH of COPD, history of pyelonephritis, HTN, morbid obesity with BMI 40 was [place] [facility] [place]itis and COPD exacerbation. She had been doing well on steroids and zithromax but she she developed one episode of 101.2 F yesterday. She is still having productive cough with greenish phlegm but is a little better, breathing is a little better , no headache or dizziness, no chest pain, no nausea or vomiting, no sore throat , no abdominal pain, no diarrhea, no dysuria. Infectious Diseases consult is requested to further evaluate and manage. Review of Systems - Review of Systems All systems: reviewed and no additional remarkable complaints except (as per HPI ) Past Patient History - Infectious Disease Hx of Infectious Diseases: None - Tetanus Immunizations Tetanus Immunization: Unknown - Past Medical History & Family History Past Medical History?: Yes - Past Social History Smoking Status: Never Smoked - CARDIAC Hx Cardiac Disorders: Yes Hx Hypertension: Yes - PULMONARY Hx Respiratory Disorders: Yes Hx Asthma: Yes - NEUROLOGICAL Hx Neurological Disorder: No - HEENT Hx HEENT Problems: No - RENAL Hx Chronic Kidney Disease: No - ENDOCRINE/METABOLIC Hx Endocrine Disorders: No - HEMATOLOGICAL/ONCOLOGICAL Hx Blood Disorders: No - INTEGUMENTARY Hx Dermatological Problems: No - MUSCULOSKELETAL/RHEUMATOLOGICAL Hx Falls: Yes - GASTROINTESTINAL Hx Gastrointestinal Disorders: Yes - GENITOURINARY/GYNECOLOGICAL Hx Genitourinary Disorders: No - PSYCHIATRIC Hx Psychophysiologic Disorder: No Hx Emotional Abuse: No Hx Physical Abuse: No - SURGICAL HISTORY Hx Orthopedic Surgery: Yes - ANESTHESIA Hx Anesthesia Reactions: No Hx Malignant Hyperthermia: No Meds Allergies/Adverse Reactions: Allergies Allergy/AdvReac Type Severity Reaction Status Date / Time latex Allergy Mild RASH Verified 03/19/17 08:26 aspirin Allergy RASH Verified 03/18/17 21:34 levofloxacin Allergy RASH Verified 03/18/17 21:34 moxifloxacin Allergy RASH Verified 03/18/17 21:34 moxifloxacin HCl Allergy URTICARIA Verified 03/18/17 21:34 [From Avelox] ondansetron Allergy ITCHING Verified 03/19/17 09:58 pineapple Allergy RASH Verified 03/18/17 21:34 - Medications Medications: Current Medications Acetaminophen (Tylenol 325mg Tab) 650 mg PO Q4H PRN PRN Reason: Fever >100.4 F Last Admin: 04/23/17 14:40 Dose: 650 mg Acetylcysteine (Acetylcysteine 20%) 4 ml IH BIDRESP [facility] Last Admin: 04/23/17 07:42 Dose: 4 ml Albuterol/Ipratropium (Duoneb 3 Mg/0.5 Mg (3 Ml) Ud) 3 ml IH Q2H PRN PRN Reason: Shortness of Breath Last Admin: 04/23/17 18:13 Dose: 3 ml Albuterol/Ipratropium (Duoneb 3 Mg/0.5 Mg (3 Ml) Ud) 3 ml IH [id number] [facility] Last Admin: 04/23/17 13:00 Dose: 3 ml Atorvastatin Calcium (Lipitor) 10 mg PO HS [facility] Last Admin: 04/23/17 22:16 Dose: 10 mg Azithromycin (Zithromax) 500 mg PO DAILY [facility] PRN Reason: Protocol Last Admin: 04/23/17 09:48 Dose: 500 mg Budesonide (Pulmicort Respules) 0.5 mg IH [id number] [facility] Last Admin: 04/23/17 07:42 Dose: 0.5 mg Hydromorphone HCl (Dilaudid) 1 mg IVP Q6H PRN PRN Reason: Pain, severe (8-10) Last Admin: 04/23/17 19:11 Dose: 1 mg Valproate Sodium 500 mg/ (Sodium Chloride) 105 mls @ 100 mls/hr IVPB Q8 [facility] Last Admin: 04/23/17 22:21 Dose: 100 mls/hr Losartan Potassium (Cozaar) 100 mg PO DAILY [facility] Last Admin: 04/23/17 09:49 Dose: 100 mg Methylprednisolone (Solu-Medrol) 30 mg IVP Q12 [facility] Last Admin: 04/23/17 22:16 Dose: 30 mg Montelukast Sodium (Singulair) 10 mg PO DAILY [facility] Last Admin: 04/23/17 09:48 Dose: 10 mg Oxycodone/Acetaminophen (Percocet 10/325 Mg Tab) 1 tab PO Q8 PRN PRN Reason: Pain, moderate (4-7) Last Admin: 04/23/17 17:23 Dose: 1 tab Pantoprazole Sodium (Protonix Ec Tab) 40 mg PO DAILY [facility] Last Admin: 04/23/17 09:48 Dose: 40 mg Polyethylene Glycol (Miralax) 17 gm PO BID [facility] Last Admin: 04/23/17 17:23 Dose: 17 gm Promethazine HCl (Phenergan Syrup) 6.25 mg PO TID [facility] Last Admin: 04/23/17 17:24 Dose: 6.25 mg Topiramate (Topamax) 50 mg PO DAILY [facility] PRN Reason: Protocol Last Admin: 04/23/17 09:49 Dose: 50 mg Physical Exam - Constitutional Appears: Non-toxic, No Acute Distress - Head Exam Head Exam: NORMAL INSPECTION - ENT Exam ENT Exam: Mucous Membranes Moist - Neck Exam Neck exam: Negative for: Meningismus - Respiratory Exam Respiratory Exam: Decreased Breath Sounds - Cardiovascular Exam Cardiovascular Exam: +S1, +S2 - GI/Abdominal Exam GI & Abdominal Exam: Soft. absent: Tenderness Results - Vital Signs Recent Vital Signs: Last Vital Signs Temp 98.7 F 04/23/17 16:00 Pulse 73 04/23/17 16:00 Resp 20 04/23/17 16:00 BP 132/74 04/23/17 16:00 Pulse Ox 97 04/23/17 16:00 - Labs Result Diagrams: 04/20/17 10:50 04/20/17 10:50 Assessment & Plan - Assessment and Plan (Free Text) Plan: Assessment New onset fever, R.O new onset sepsis in a patient with COPD exacerbation COPD history of pyelonephritis HTN morbid obesity with BMI 40 Plan Patient is on Zithromax and will continue this; we have started a dose of IV Vanco and started Cefepime pending blood, urine cx, sputum cx, PCT, CXR, rapid Influenza test will monitor clinically
--- NOTE | 2017-04-24 17:17 | RAD ---
HISTORY: rule out pneumonia COMPARISON: 04/20/2017 FINDINGS: LUNGS: No active pulmonary disease. Obliquely oriented atelectasis is seen in the left lower lobe PLEURA: No significant pleural effusion identified, no pneumothorax apparent. CARDIOVASCULAR: Normal. OSSEOUS STRUCTURES: No significant abnormalities. VISUALIZED UPPER ABDOMEN: Normal. OTHER FINDINGS: None. IMPRESSION: No active disease.
[2017-04-24 18:31] VITALS: TEMP 99.5
[2017-04-24 19:12] VITALS: BP 142/82; PULSE 82; RESP 20; O2SAT 98
[2017-04-25] MEDS: Albuterol-Ipratrop 3 mg / 0.5 (3 ml) UD IH SCH ×3 (01:07→13:10)
[2017-04-25] MEDS: HYDROmorphone 2 mg/ml ISec IVP PRN ×4 (01:18→15:33)
[2017-04-25] MEDS ORDERED: Benzocaine/Menthol (Cepacol) Lozenge MT ONE (03:50)
[2017-04-25] MEDS ORDERED: Alum-Mag Hydrox-Simethicone Susp (30 mL) PO ONE (04:01)
[2017-04-25] MEDS: Oxycodone/Acetaminophen 10/325 mg Tab PO PRN (04:10)
[2017-04-25] MEDS: Cefepime 1gm in NS 100ml 1 GM/100 ML BAG IVPB SCH ×2 (05:40→13:44)
[2017-04-25] MEDS: Budesonide 0.5 mg/2 ml Inhal Susp UD IH SCH (07:36)
[2017-04-25] MEDS: Acetylcysteine 20% Inhal Soln (4ml) IH SCH (07:36)
--- NOTE | 2017-04-25 07:56 | PN ---
DATE: 04/25/2017 PULMONARY NOTE SUBJECTIVE: The patient appears very comfortable at rest. She is not short of breath. She states she is feeling much better. PHYSICAL EXAMINATION: VITAL SIGNS: Temperature is 97.0, pulse 82, respirations 18/20, blood pressure 142/82. Oxygen saturation on room air is 98%. HEENT: Normocephalic, atraumatic. No JVD. CARDIOVASCULAR: Positive S1, S2. No S3 gallop. LUNGS: Very minimal/less rhonchi. No wheezing. EXTREMITIES: Mild edema. No cyanosis, no clubbing. Calves are nontender to palpation. GI: Abdomen is soft, nontender and nondistended. Bowel sounds are positive. SKIN: No acute rash. NEUROLOGIC: Exam limited at the present time. PERTINENT LABORATORY DATA: Chest x-ray was repeated yesterday and reviewed. There is no active disease present. IMPRESSION: 1. Acute bronchitis. 2. Asthma. 3. Chronic obstructive pulmonary disease. 4. Solitary pulmonary nodule - right middle lobe. PLAN: The patient appears very comfortable this morning. She is not short of breath at rest. She does state to feeling much better overall. I did discuss the case with the night nurse at length. The night nurse stated that the patient had a very good night. On physical exam, her bronchospasm continues to resolve. In addition, the oxygen saturation on room air is now 98%. I will continue with the current nebulizer treatments and change to oral steroids this morning. The patient remains on antibiotic therapy. Her temperatures have resolved. There is no leukocytosis. Clinical status of the patient is significantly improved overall. She is for probable discharge in the near future. If/when discharged, the patient is well aware that she will need to follow up with me in the office - concerning her solitary pulmonary nodule. I will discuss the above with Dr. Yan. Beni Rhoades MD [facility]
--- NOTE | 2017-04-25 08:40 | PN ---
DATE: 04/25/2017 SUBJECTIVE: The patient has no chest pain. She said she continues have shortness of breath on exertion. She has no headache or dizziness. PHYSICAL EXAMINATION: VITAL SIGNS: Temperature of 99.5, pulse of 82, blood pressure 142/83, and respirations are 20. GENERAL: The patient is lying in bed, flat, comfortable. HEENT: No oral lesion. Anicteric sclerae. Moist mucosa. NECK: No JVD, adenopathy, or thyromegaly. CARDIOVASCULAR: S1 and S2, regular. No murmurs, rubs, or gallops. LUNGS: She has bilateral wheezing. No rales or rhonchi. Good air entry. ABDOMEN: Bowel sounds are positive, soft, nontender and nondistended. EXTREMITIES: No cyanosis, clubbing or edema. LABORATORY DATA: Chest x-ray done, shows no active disease. ASSESSMENT: 1. Acute chronic obstructive pulmonary disease. 2. LEVAQUIN ALLERGY. 3. A 5 mm lung nodule. 4. Migraine headache. 5. Obesity. 6. Hypertension. 7. Osteoarthritis of the right knee. 8. Constipation. PLAN: The patient is currently comfortable. She is on cough medications. She is on losartan for hypertension. She is on Dilaudid, I have increased the Dilaudid for q. 4 hours yesterday, and the patient is receiving her DuoNeb treatments. She is on cefepime for antibiotics. The patient is receiving MiraLax for constipation. For her throat, she is on steroids. The patient is on antibiotics with Azithromycin. She is on a heart-healthy diet. She is able to ambulate. Luis Yan MD
[2017-04-25] MEDS: Promethazine 6.25 MG/5 ML CUP PO SCH (10:08)
[2017-04-25] MEDS: Benzocaine/Menthol (Cepacol) Lozenge MT SCH (10:10)
[2017-04-25] MEDS: Pantoprazole 40 mg EC Tab PO SCH (10:11)
[2017-04-25] MEDS: POLYETHYLENE GLYCOL 3350 17 GM/Dose PACKET PO SCH (10:11)
--- NOTE | 2017-04-25 11:41 | CP.PCM.PN ---
Subjective - Date & Time of Evaluation Date of Evaluation: 04/25/17 Time of Evaluation: 11:05 - Subjective Subjective: Comfortable in bed, no fevers but still with wheezing and dyspnea on exertion. Objective - Vital Signs/Intake and Output Vital Signs (last 24 hours): Temp Pulse Resp BP Pulse Ox 99.5 F 82 20 142/82 98 04/24/17 18:31 04/24/17 16:00 04/24/17 16:00 04/24/17 16:00 04/24/17 16:00 Intake and Output: 04/25/17 04/25/17 06:59 18:59 Intake Total 1080 Balance 1080 - Medications Medications: Current Medications Acetaminophen (Tylenol 325mg Tab) 650 mg PO Q4H PRN PRN Reason: Fever >100.4 F Last Admin: 04/23/17 14:40 Dose: 650 mg Acetylcysteine (Acetylcysteine 20%) 4 ml IH BIDRESP [facility] Last Admin: 04/25/17 07:36 Dose: 4 ml Albuterol/Ipratropium (Duoneb 3 Mg/0.5 Mg (3 Ml) Ud) 3 ml IH Q2H PRN PRN Reason: Shortness of Breath Last Admin: 04/23/17 18:13 Dose: 3 ml Albuterol/Ipratropium (Duoneb 3 Mg/0.5 Mg (3 Ml) Ud) 3 ml IH [id number] [facility] Last Admin: 04/25/17 07:36 Dose: 3 ml Atorvastatin Calcium (Lipitor) 10 mg PO HS [facility] Last Admin: 04/24/17 21:06 Dose: 10 mg Azithromycin (Zithromax) 500 mg PO DAILY [facility] PRN Reason: Protocol Last Admin: 04/24/17 10:06 Dose: 500 mg Benzocaine/Menthol (Cepacol Sore Throat) 1 augustin MT QID [facility] Last Admin: 04/24/17 21:05 Dose: 1 augustin Budesonide (Pulmicort Respules) 0.5 mg IH [id number] [facility] Last Admin: 04/25/17 07:36 Dose: 0.5 mg Hydromorphone HCl (Dilaudid) 1 mg IVP Q4H PRN PRN Reason: Pain, severe (8-10) Last Admin: 04/25/17 06:26 Dose: 1 mg Cefepime HCl (Maxipime 1gm) 1 gm in 100 mls @ 100 mls/hr IVPB Q8 [facility] PRN Reason: Protocol Last Admin: 04/25/17 05:40 Dose: 100 mls/hr Losartan Potassium (Cozaar) 100 mg PO DAILY [facility] Last Admin: 04/24/17 10:06 Dose: 100 mg Montelukast Sodium (Singulair) 10 mg PO DAILY [facility] Last Admin: 04/24/17 10:06 Dose: 10 mg Oxycodone/Acetaminophen (Percocet 10/325 Mg Tab) 1 tab PO Q8 PRN PRN Reason: Pain, moderate (4-7) Last Admin: 04/25/17 04:10 Dose: 1 tab Pantoprazole Sodium (Protonix Ec Tab) 40 mg PO DAILY [facility] Last Admin: 04/24/17 10:12 Dose: 40 mg Polyethylene Glycol (Miralax) 17 gm PO BID [facility] Last Admin: 04/24/17 17:21 Dose: 17 gm Prednisone (Prednisone Tab) 30 mg PO DAILY [facility] Promethazine HCl (Phenergan Syrup) 6.25 mg PO QID [facility] Last Admin: 04/24/17 21:05 Dose: 6.25 mg Topiramate (Topamax) 50 mg PO DAILY [facility] PRN Reason: Protocol Last Admin: 04/24/17 10:06 Dose: 50 mg - Constitutional Appears: Non-toxic - Head Exam Head Exam: NORMAL INSPECTION - ENT Exam ENT Exam: Mucous Membranes Moist - Neck Exam Neck Exam: absent: Lymphadenopathy, Meningismus - Respiratory Exam Respiratory Exam: Decreased Breath Sounds, Wheezes - Cardiovascular Exam Cardiovascular Exam: +S1, +S2 - GI/Abdominal Exam GI & Abdominal Exam: Soft. absent: Tenderness Assessment and Plan - Assessment and Plan (Free Text) Plan: Assessment New onset fever, probably still related to COPD exacerbation, without evidence of pneumonia or other source of infection COPD history of pyelonephritis HTN morbid obesity with BMI 40 Plan Patient is on cefepime and Zithromax day 3; cultures have been negative and PCT is <0.05 - can be switched to PO Vantin and PO Zithromax when ready for discharge; rapid Influenza test also negative
== END 2017-04-25 18:43 | disposition home or self-care (01) | DRG 191 ==
LOC: ED 10:24 → ERH 14:38 → 3RNO 19:09 → OBSVTOIN 04-22 11:18
PROVIDERS: ADMIT Internal Medicine Nephrology; ATTEND Internal Medicine
DX: J44.1 Chronic obstructive pulmonary disease with (acute) exacerbation (principal); Z68.41 Body mass index [BMI] 40.0-44.9, adult; N17.9 Acute kidney failure, unspecified; W19.XXXA Unspecified fall, initial encounter; E66.01 Morbid (severe) obesity due to excess calories; E78.5 Hyperlipidemia, unspecified; G43.909 Migraine, unspecified, not intractable, without status migrainosus; J20.9 Acute bronchitis, unspecified; J44.0 Chronic obstructive pulmonary disease with (acute) lower respiratory infection; G44.009 Cluster headache syndrome, unspecified, not intractable; I10 Essential (primary) hypertension; K59.00 Constipation, unspecified; E03.9 Hypothyroidism, unspecified; E11.9 Type 2 diabetes mellitus without complications; D86.9 Sarcoidosis, unspecified; M17.11 Unilateral primary osteoarthritis, right knee; Z79.899 Other long term (current) drug therapy; Z87.891 Personal history of nicotine dependence; Z98.84 Bariatric surgery status; R91.1 Solitary pulmonary nodule; Z88.1 Allergy status to other antibiotic agents

== ENCOUNTER 2017-05-22 06:30 | Inpatient (IN) | payer OTHER ==
[2017-05-22] MEDS ORDERED: Albuterol-Ipratrop 3 mg / 0.5 (3 ml) UD IH STA ×2 (07:10→12:04)
--- NOTE | 2017-05-22 07:16 | ED PDOC ---
Arrival/HPI - History of Present Illness Time/Duration: < week (2 days) Symptom Onset: Gradual Symptom Course: Worsening Activities at Onset: Rest - General Chief Complaint: Shortness Of Breath Time Seen by Provider: 05/22/17 07:08 - History of Present Illness Narrative History of Present Illness (Text): CC: asthma, headache, cough, aches 52 post menopausal F presents with two day history of wheezing, productive coughing, shortness of breath. Patient states her grandson has been coughing for two weeks and has similar symptoms. Patient states she's having pain in her back, her knees, her elbows and her head. Patient also complains of nausea. Patient is drowsy during interview. Patient admits to fever, chills, nausea, arthralgias, polyuria Patient denies vomiting, diarrhea, hematuria, dysuria PMH: Pyelonephritis, copd, asthma, COPD, hypertension, GERD, Chronic pain syndrome, migraine, menopause Allergies: Levofloxacin, Moxifloxacin Social history: Denies history of smoking, Denies alcohol, Denies drug abuse Family history: Not significant 05/22/17 08:07 05/22/17 10:01 (Pilar Lerner) Past Medical History - Provider Review Nursing Documentation Reviewed: Yes - Infectious Disease Hx of Infectious Diseases: None - Tetanus Immunization Tetanus Immunization: Unknown - Reproductive Menopause: Yes - Cardiac Hx Cardiac Disorders: Yes Hx Hypertension: Yes - Pulmonary Hx Respiratory Disorders: Yes Hx Asthma: Yes - Neurological Hx Neurological Disorder: No Hx Migraine: Yes - HEENT Hx HEENT Disorder: No - Renal Hx Renal Disorder: No - Endocrine/Metabolic Hx Endocrine Disorders: No - Hematological/Oncological Hx Blood Disorders: No - Integumentary Hx Dermatological Disorder: No - Musculoskeletal/Rheumatological Hx Falls: Yes - Gastrointestinal Hx Gastrointestinal Disorders: Yes - Genitourinary/Gynecological Hx Genitourinary Disorders: No - Psychiatric Hx Psychophysiologic Disorder: No Hx Emotional Abuse: No Hx Physical Abuse: No Hx Substance Use: No - Past Surgical History Past Surgical History: Non-Contributing - Surgical History Hx Orthopedic Surgery: Yes (left knee replacement) - Anesthesia Hx Anesthesia Reactions: No Hx Malignant Hyperthermia: No - Suicidal Assessment Feels Threatened In Home Enviroment: No Family/Social History - Physician Review Nursing Documentation Reviewed: Yes Family/Social History: Unknown Family HX Smoking Status: Never Smoked Hx Alcohol Use: No Amount per day: 0 Hx Substance Use: No Hx Substance Use Treatment: No Allergies/Home Meds Allergies/Adverse Reactions: Allergies latex Allergy (Mild, Verified 05/22/17 12:08) RASH aspirin Allergy (Verified 05/22/17 12:08) RASH levofloxacin Allergy (Verified 05/22/17 12:08) RASH moxifloxacin Allergy (Verified 05/22/17 12:08) RASH moxifloxacin HCl [From Avelox] Allergy (Verified 05/22/17 12:08) URTICARIA ondansetron Allergy (Verified 05/22/17 12:08) ITCHING pineapple Allergy (Verified 05/22/17 12:08) RASH Home Medications: Home Meds Medication Instructions Recorded Confirmed Losartan [Cozaar] 100 mg PO DAILY 06/02/14 05/22/17 Budesonide [Pulmicort] 1 puff INH DAILY 05/29/15 05/22/17 Montelukast Sodium [Singulair] 10 mg PO DAILY 05/29/15 05/22/17 Simvastatin 10 mg PO DAILY 05/29/15 05/22/17 Review of Systems - Review of Systems Constitutional: Normal Eyes: Normal. absent: Vision Changes, Photophobia, Eye Pain ENT: Normal. absent: Hearing Changes, Tinnitus, TMJ Pain Respiratory: SOB, Cough, Sputum, Wheezing Cardiovascular: absent: Chest Pain, Palpitations, Edema Gastrointestinal: Nausea. absent: Abdominal Pain, Stool Changes, Constipation, Diarrhea, Vomiting, Hematochezia Musculoskeletal: absent: Arthralgias, Back Pain, Neck Pain Skin: absent: Rash, Pruritis, Skin Lesions Neurological: Headache. absent: Dizziness, Focal Weakness, Gait Changes, Speech Changes, Facial Droop, Disequilibrium Endocrine: Polyuria. absent: Diaphoresis, Polydipsia Hemo/Lymphatic: absent: Adenopathy, Easy Bleeding, Easy Bruising Psychiatric: absent: Anxiety, Depression, Suicidal Ideation Physical Exam Vital Signs Reviewed: Yes Temperature: Febrile Blood Pressure: Normal Pulse: Tachycardic Respiratory Rate: Normal Appearance: Positive for: Uncomfortable Pain Distress: Mild Mental Status: Positive for: Alert and Oriented X 3 - Systems Exam Head: Present: Atraumatic, Normocephalic Pupils: Present: PERRL Extroacular Muscles: Present: EOMI Conjunctiva: Present: Normal Mouth: Present: Moist Mucous Membranes Pharnyx: Present: Normal. No: ERYTHEMA, EXUDATE, TONSILS ENLARGED, Peritonsilar Swelling, Uvular Deviation, Muffled/Hoarse Voice, Strider, Soft Palate/Uvular Edema Nose (External): Present: Atraumatic. No: Abrasion, Contusion, Laceration Nose (Internal): Present: Normal Inspection Neck: Present: Normal Range of Motion, Trachea Midline. No: JVD, Lymphadenopathy Respiratory/Chest: Present: Clear to Auscultation, Good Air Exchange. No: Respiratory Distress, Accessory Muscle Use, Wheezes, Decreased Breath Sounds Cardiovascular: Present: Regular Rate and Rhythm, Normal S1, S2 Abdomen: Present: Normal Bowel Sounds. No: Tenderness, Distention, Peritoneal Signs Upper Extremity: Present: Normal Inspection, Normal ROM, NORMAL PULSES, Capillary Refill < 2s. No: Edema Lower Extremity: Present: Normal Inspection, NORMAL PULSES, Normal ROM, Capillary Refill < 2 s Neurological: Present: GCS=15, CN II-XII Intact, Speech Normal, Motor Func Grossly Intact, Normal Sensory Function Skin: Present: Warm, Dry, Normal Color. No: Rashes Psychiatric: Present: Alert, Oriented x 3, Normal Insight, Normal Concentration Vital Signs Temp Pulse Resp BP Pulse Ox 05/22/17 15:48 100 H 18 112/66 95 05/22/17 15:24 99.5 F 86 19 112/55 L 05/22/17 13:30 86 19 112/55 L 96 05/22/17 11:10 87 19 130/84 98 05/22/17 08:40 103 H 14 131/71 95 05/22/17 06:41 100.8 F H 116 H 20 128/82 94 L Medical Decision Making Re-evaluation Time: 09:45 Reassessment Condition: Re-examined, Improving,but remains with symptoms - RAD Interpretation Political Research Scientist: ED Physician - EKG Interpretation Interpreted by ED Physician: Yes (NSR @99bpm) Type: 12 lead EKG ED Course and Treatment: 05/22/17 07:25 ekg cbc cmp, mag, ph urinalysis cxr two views tylenol 650mg ONCE duonebs once influenza a/b (Eng,Pilar) - Lab Interpretations Narrative Lab Interpretation (Text): 05/22/17 10:02 urinalysis rbc too numerous to count, no nitrates, no leukocyte esterase (Eng, Pilar) Microbiology Results: Microbiology Results 05/22/17 08:09 Urine,Clean Catch Urine Culture - Preliminary Gram Positive Cocci Lab Results: 05/22/17 08:43 05/22/17 08:43 Lab Results 05/22/17 08:43: Sodium 138, Potassium 3.7, Chloride 103, Carbon Dioxide 23, Anion Gap 15, BUN 16, Creatinine 0.8, Est GFR ( Amer) > 60, Est GFR (Non- Af Amer) > 60, Random Glucose 122 H, Calcium 9.2, Magnesium 1.8, Total Bilirubin 0.2, AST 42 H D, ALT 51, Alkaline Phosphatase 142 H D, Total Protein 7.0, Albumin 3.9, Globulin 3.1, Albumin/Globulin Ratio 1.3 05/22/17 08:43: WBC 5.6 D, RBC 4.17, Hgb 12.0, Hct 37.4, MCV 89.7, MCH 28.8, MCHC 32.1, RDW 14.6 H, Plt Count 219, MPV 10.6, Gran % 57.1, Lymph % (Auto) 18.5 L, [place] % (Auto) 13.1 H, Eos % (Auto) 10.8 H, Baso % (Auto) 0.5, Gran # 3.19, Lymph # (Auto) 1.0 L, [place] # (Auto) 0.7 H, Eos # (Auto) 0.6, Baso # (Auto ) 0.03 05/22/17 08:40: Influenza Typ A,B (EIA) Negative for flu a/b 05/22/17 08:09: Urine Color Yellow, Urine Appearance Sl cloudy, Urine pH 6.0, Ur Specific [place] 1.025, Urine Protein Trace H, Urine Glucose (UA) Negative, Urine Ketones Negative, Urine Blood Large H, Urine Nitrate Negative, Urine Bilirubin Negative, Urine Urobilinogen 0.2, Ur Leukocyte Esterase Negative, Urine RBC Tntc, Urine WBC 5 - 10, Ur Epithelial Cells 4 - 5, Urine Bacteria Mod - RAD Interpretation Narrative RAD Interpretations (Text): 05/22/17 10:03 cxr negative for active disease (Pilar Lerner) Radiology Orders: 05/22/17 07:20 CHEST TWO VIEWS (PA/LAT) [RAD] Stat - Medication Orders Current Medication Orders: Acetaminophen (Tylenol 325mg Tab) 650 mg PO Q6H PRN PRN Reason: Fever >100.4 F Last Admin: 05/23/17 09:29 Dose: 650 mg MAR Pain/Vitals Document 05/23/17 09:29 [facility] (Rec: 05/23/17 09:30 [id number] Pain Reassessment Is This A Pain ReAssessment? No Sleep Is patient sleeping during reassessment? No Presence of Pain Presence of Pain Yes Pain Scale Used Pain Scale Used Numeric Location Pain Location Body Site Generalized Description Intermittent Pain Behavior Irritability Aggravating Factors Changing Position Alleviating Factors Medication Vitals Temperature (97.6 F-99.6 F) 99.8 F Temperature Source Oral Albuterol/Ipratropium (Duoneb 3 Mg/0.5 Mg (3 Ml) Ud) 3 ml IH Q2H PRN PRN Reason: Shortness of Breath Last Admin: 05/23/17 05:10 Dose: 3 ml Albuterol/Ipratropium (Duoneb 3 Mg/0.5 Mg (3 Ml) Ud) 3 ml IH [id number] [facility] [place] Last Admin: 05/23/17 13:54 Dose: 3 ml Atorvastatin Calcium (Lipitor) 10 mg PO DIN [facility] [place] Losartan Potassium (Cozaar) 100 mg PO DAILY [facility] [place] Last Admin: 05/23/17 09:30 Dose: 100 mg Methylprednisolone (Solu-Medrol) 40 mg IV Q12 [facility] Last Admin: 05/23/17 09:37 Dose: 40 mg eMAR Start Stop Document 05/23/17 09:37 BARBIE (Rec: 05/23/17 09:37 BARBIE [id number]) Intravenous Solution Start Date 05/23/17 Start Time 09:37 End Date 05/23/17 End time 09:37 Total Infusion Time 0 Montelukast Sodium (Singulair) 10 mg PO DAILY [facility] [place] [place] Last Admin: 05/23/17 09:30 Dose: 10 mg Oxycodone/Acetaminophen (Percocet 5/325 Mg Tab) 1 tab PO Q6H PRN PRN Reason: Pain, moderate (4-7) Stop: 05/25/17 17:23 Last Admin: 05/23/17 11:55 Dose: 1 tab MAR Pain Assessment Document 05/23/17 11:55 [facility] (Rec: 05/23/17 11:56 [facility] [id number]) Pain Reassessment Is this a pain reassessment? No Sleep Is patient sleeping during reassessment? No Presence of Pain Presence of Pain Yes Pain Scale Used Pain Scale Used Numeric Location Pain Location Body Site Generalized Description Description Intermittent Intensity of Pain at present 9 Re-Assess: MAR Pain Assessment Document 05/23/17 12:55 [facility] (Rec: 05/23/17 13:53 [facility] [id number]) Pain Reassessment Is this a pain reassessment? Yes Sleep Is patient sleeping during reassessment? No Presence of Pain Presence of Pain No Pantoprazole Sodium (Protonix Ec Tab) 40 mg PO 0630 [facility] Last Admin: 05/23/17 05:50 Dose: Not Given Non-Admin Reason: Patient Asleep Promethazine HCl (Phenergan Syrup) 6.25 mg PO Q4H PRN PRN Reason: Cough Last Admin: 05/23/17 14:01 Dose: 6.25 mg Discontinued Medications Acetaminophen (Tylenol 325mg Tab) 650 mg PO STAT STA Stop: 05/22/17 07:25 Last Admin: 05/22/17 07:41 Dose: 650 mg MAR Pain/Vitals Document 05/22/17 07:41 RG (Rec: 05/22/17 08:10 RG [id number]) Pain Reassessment Is This A Pain ReAssessment? Yes Location Upper or Lower Upper Pain Location Body Welfare Administrator Intensity 10 Scale Used Numeric Pain Behavior Moaning Acetaminophen (Tylenol 325mg Tab) 975 mg PO STAT STA Stop: 05/22/17 12:05 Last Admin: 05/22/17 11:59 Dose: 975 mg MAR Pain/Vitals Document 05/22/17 11:59 SE (Rec: 05/22/17 12:06 SE [id number]) Pain Reassessment Is This A Pain ReAssessment? No Sleep Is patient sleeping during reassessment? No Presence of Pain Presence of Pain Yes Pain Scale Used Pain Scale Used Numeric Location Pain Location Body Welfare Administrator Albuterol/Ipratropium (Duoneb 3 Mg/0.5 Mg (3 Ml) Ud) 3 ml IH STAT STA Stop: 05/22/17 07:11 Last Admin: 05/22/17 07:00 Dose: 3 ml Albuterol/Ipratropium (Duoneb 3 Mg/0.5 Mg (3 Ml) Ud) 3 ml IH Q15M SHAQ Stop: 05/22/17 08:01 Last Admin: 05/22/17 07:50 Dose: 3 ml Albuterol/Ipratropium (Duoneb 3 Mg/0.5 Mg (3 Ml) Ud) 3 ml IH STAT STA Stop: 05/22/17 12:05 Last Admin: 05/22/17 11:59 Dose: 3 ml Ibuprofen (Motrin Tab) 400 mg PO STAT STA Stop: 05/22/17 19:32 Last Admin: 05/22/17 19:41 Dose: Not Given Non-Admin Reason: Patient Refused Methylprednisolone (Solu-Medrol) 125 mg IVP STAT STA Stop: 05/22/17 07:27 Last Admin: 05/22/17 08:03 Dose: 125 mg IVP Administration Document 05/22/17 08:03 RG (Rec: 05/22/17 08:09 [id number]) Charges for Administration # of IVP Administrations 1 Metoclopramide HCl (Reglan) 10 mg IVP STAT STA Stop: 05/22/17 07:23 Last Admin: 05/22/17 08:02 Dose: 10 mg IVP Administration Document 05/22/17 08:02 RG (Rec: 05/22/17 08:09 RG [id number]) Charges for Administration # of IVP Administrations 1 Non-Formulary Medication (Simvastatin [Simvastatin]) 10 mg PO DAILY [facility] [place] Oxycodone/Acetaminophen (Percocet 10/325 Mg Tab) 1 tab PO TID PRN PRN Reason: Pain, moderate (4-7) Last Admin: 05/23/17 04:38 Dose: 1 tab MAR Pain Assessment Document 05/23/17 04:38 ELLEN (Rec: 05/23/17 04:38 ELLEN [id number]) Pain Reassessment Is this a pain reassessment? No Sleep Is patient sleeping during reassessment? No Presence of Pain Presence of Pain Yes Location Pain Location Body Welfare Administrator Pantoprazole Sodium (Protonix Ec Tab) 40 mg PO DAILY SHAQ Last Admin: 05/22/17 13:30 Dose: 40 mg Pantoprazole Sodium (Protonix Ec Tab) 40 mg PO 0630 [facility] [place] Pneumococcal Polyvalent Vaccine (Pneumovax 23 Vaccine) 0.5 ml IM .ONCE ONE Stop: 05/22/17 15:44 Disposition/Present on Arrival - Present on Arrival Any Indicators Present on Arrival: No History of DVT/PE: No History of Uncontrolled Diabetes: No Urinary Catheter: No History of Decub. Ulcer: No History Surgical Site Infection Following: None - Disposition Have Diagnosis and Disposition been Completed?: Yes Disposition Time: 10:03 Patient Plan: Admission, Telemetry - Disposition Diagnosis: Asthma exacerbation, COPD exacerbation Disposition: HOSPITALIZED Patient Problems: Current Active Problems Problem Status Onset Asthma exacerbation Acute COPD exacerbation Acute Condition: GUARDED
[2017-05-22] MEDS: Albuterol-Ipratrop 3 mg / 0.5 (3 ml) UD IH SCH ×5 (07:50→20:10)
[2017-05-22 08:25] LABS: URINE BILIRUBIN NEGATIVE (NEGATIVE); URINE BLOOD LARGE (NEGATIVE); URINE GLUCOSE (UA) NEGATIVE (NEGATIVE); URINE LEUKOCYTE ESTERASE NEGATIVE Leu/uL (NEGATIVE); URINE NITRATE NEGATIVE (NEGATIVE); URINE PROTEIN TRACE mg/dL (<30 mg/dL); URINE UROBILINOGEN 0.2 E.U./dL (<1 E.U./dL)
[2017-05-22 08:28] LABS: URINE APPEARANCE SL CLOUDY (CLEAR); URINE COLOR YELLOW (YELLOW)
[2017-05-22 08:37] LABS: URINE BACTERIA MOD (NEG); URINE RBC TNTC /hpf (0-2)
[2017-05-22 09:02] LABS: BASO # 0.03 K/mm3 (0.0-2.0); BASO % 0.5 % (0.0-3.0); EOS # 0.6 (0.0-0.7); EOS % 10.8 % (1.5-5.0); GRAN # 3.19 (1.4-6.5); GRAN % 57.1 % (50.0-68.0); LYMPH % 18.5 % (22.0-35.0); MEAN CELL VOLUME 89.7 fl (80.0-105.0); MEAN CORPUSCULAR HEMOGLOBIN 28.8 pg (25.0-35.0); MEAN CORPUSCULAR HGB CONC 32.1 g/dl (31.0-37.0); MEAN PLATELET VOLUME 10.6 fl (7.0-11.0); MONO # 0.7 (0.1-0.6); MONO % 13.1 % (1.0-6.0); RBC 4.17 10^6/uL (3.5-6.1); RED CELL DISTRIBUTION WIDTH 14.6 % (11.5-14.5); WHITE BLOOD COUNT 5.6 10^3/ul (4.5-11.0)
[2017-05-22 09:11] LABS: ALB/GLOB RATIO 1.3 (1.1-1.8); ALBUMIN 3.9 g/dL (3.0-4.8); ALT/SGPT 51 U/L (7-56); AST/SGOT 42 U/L (14-36); BLOOD UREA NITROGEN 16 mg/dL (7-21); CALCIUM 9.2 mg/dL (8.4-10.5); GFR AFRICAN-AMERICAN > 60; GFR NON-AFRICAN AMERICAN > 60; MAGNESIUM 1.8 mg/dL (1.7-2.2)
--- NOTE | 2017-05-22 10:02 | RAD ---
HISTORY: sob, productive cough, copd COMPARISON: 05/19/2017 TECHNIQUE: Chest PA and lateral FINDINGS: LUNGS: No active pulmonary disease. PLEURA: No significant pleural effusion identified. No pneumothorax apparent. CARDIOVASCULAR: Normal. OSSEOUS STRUCTURES: No significant abnormalities. VISUALIZED UPPER ABDOMEN: Normal. OTHER FINDINGS: None. IMPRESSION: No active disease.
[2017-05-22] MEDS ORDERED: Pantoprazole 40 mg EC Tab PO SCH (13:00)
[2017-05-22] MEDS: MethylPREDNISolone 40 mg Vial IV SCH ×2 (13:26→21:29)
[2017-05-22 15:43] VITALS: BMI 37.8
[2017-05-22] MEDS ORDERED: Influenza Vaccine 60 mcg/0.5 mL SYR (4YR UP) IM ONE (15:43)
[2017-05-22] MEDS ORDERED: Pneumococcal 23-Valent Vaccine IM ONE (15:43)
[2017-05-22] MEDS: Oxycodone/Acetaminophen 10/325 mg Tab PO PRN ×2 (16:36→19:43)
--- NOTE | 2017-05-22 18:05 | CARD ---
APPROVED REPORT EKG Measurement Heart [id number] <Conclusion> Normal sinus rhythm Nonspecific ST abnormality Abnormal ECG
[2017-05-23] MEDS: Albuterol-Ipratrop 3 mg / 0.5 (3 ml) UD IH PRN ×3 (00:02→18:11)
[2017-05-23] MEDS: Albuterol-Ipratrop 3 mg / 0.5 (3 ml) UD IH SCH ×4 (01:25→20:16)
--- NOTE | 2017-05-23 03:36 | HP ---
HISTORY OF PRESENT ILLNESS: Patient is 52-year-old known to me from multiple previous admissions, came to emergency room because of increasing cough, congestion, shortness of breath, intractable headache, back pain, bilateral knee pain. Patient states she has been using her nebulizer with no significant relief. She is scared her wheezing has been increasingly getting worse and she has productive cough, gets worse by lying down. Denies any chest pain. She does not have hemoptysis. She states her grandson has been coughing for last two weeks, and he has similar symptoms. PAST MEDICAL HISTORY: Significant for: 1. Morbid obesity. 2. Bronchial asthma. 3. Hypertension. 4. Hyperlipidemia. 5. Peptic ulcer disease. 6. Bilateral knee osteoarthritis, recently had arthroscopy done. ALLERGIES: SHE IS ALLERGIC TO LEVAQUIN AND AVELOX. SOCIAL HISTORY: She is . Lives with her . Denies smoking, drinking, or alcohol use. MEDICATIONS: At home, she is on prednisone 10 mg daily, simvastatin 10 mg daily, promethazine, pantoprazole 40 mg daily, Singulair 10 mg daily, losartan 100 mg daily, Pulmicort. She is on Bromfed, Percocet as needed. REVIEW OF SYSTEMS: Significant for headache, back pain, cough, congestion, shortness of breath. PHYSICAL EXAMINATION: GENERAL: She is awake, alert, oriented, communicative. VITAL SIGNS: She has temperature 99.5, pulse 86, respirations 18, blood pressure 112/55. LUNGS: Bilateral diffuse expiratory rhonchi. HEART: S1 and S2 audible. ABDOMEN: Soft, obese, nontender. No rebound, no guarding. NEUROLOGICAL: She is awake, alert, oriented, communicative. LABORATORY EXAM: WBC is 5.6, hemoglobin 12, hematocrit 37, platelets 119. Chemistry: Sodium 135, potassium 3.7, chloride 103, CO2 of 23, BUN 16, creatinine 0.8, blood sugar 122. Urinalysis is unremarkable. Flu test is negative. X-ray chest, no active disease. ASSESSMENT: 1. Asthmatic bronchitis. 2. Migraine headache. 3. Bronchospasm. 4. Hypertension. 5. Hyperlipidemia. PLAN: Patient is going to be admitted. We will restart her medication. Start on nebulizer treatment, IV steroid. Resume her usual medications, and we will follow up this patient in a.m. Itzel Claros MD [facility] # [id number]
[2017-05-23] MEDS: Oxycodone/Acetaminophen 10/325 mg Tab PO PRN (04:38)
[2017-05-23] MEDS: Promethazine 6.25 MG/5 ML CUP PO PRN ×4 (04:39→20:16)
[2017-05-23] MEDS: Pantoprazole 40 mg EC Tab PO SCH (05:50)
[2017-05-23] MEDS ORDERED: Pantoprazole 40 mg EC Tab PO SCH (06:30)
[2017-05-23] MEDS: MethylPREDNISolone 40 mg Vial IV SCH ×2 (09:37→22:18)
[2017-05-23] MEDS: Oxycodone/Acetaminophen 5/325 mg Tab PO PRN ×2 (11:55→19:20)
[2017-05-23] MEDS ORDERED: cefTRIAXone 1 gm 1 GM/100 ML BAG IVPB STA (16:26)
[2017-05-23] MEDS ORDERED: Oxymetazoline 0.05% Nasal Spray (30 ml) NS PRN (17:30)
--- NOTE | 2017-05-23 19:44 | PN ---
DATE: SUBJECTIVE: Patient is 52 years old, seen and examined; still complaining of headache, cough, congestion, complaining of generalized body aches and pain. PHYSICAL EXAMINATION: VITAL SIGNS: She has a temperature of 100.4, pulse 92, respirations 20, blood pressure 111/68. LUNGS: Bilateral expiratory rhonchi. HEART: S1, S2 audible. ABDOMEN: Soft, nontender. No rebound, no guarding. NEUROLOGIC: She is awake, alert, oriented, communicative. LABORATORY EXAM: Her flu test is negative. Urinalysis is unremarkable. ASSESSMENT: 1. Asthma exacerbation. 2. Bronchospasm. 3. Hypertension. 4. Headache. PLAN: We will continue the patient on nebulizer treatment. We will start her on ibuprofen 400 mg scheduled for next 24 hours since she is having fever and complaining of generalized weakness. Now, we will order for CT scan of the chest to rule out underlying pneumonia. Continue her on IV steroids. Itzel Claros MD
--- NOTE | 2017-05-23 21:30 | CT ---
EXAM: CT Chest Without Intravenous Contrast CLINICAL HISTORY: 52 years old, female; Signs and symptoms; Cough and shortness of breath; Symptoms not specified; Additional info: SOB TECHNIQUE: Axial computed tomography images of the chest without intravenous contrast. All CT scans at this facility use one or more dose reduction techniques, viz.: automated exposure control; ma/kV adjustment per patient size (including targeted exams where dose is matched to indication; i.e. head); or iterative reconstruction technique. Coronal and sagittal reformatted images were created and reviewed. COMPARISON: CT - 04/20/2017, 06/02/2015 FINDINGS: Limitations: Lack of intravenous contrast. Lungs: Mild atelectasis/scarring within lingular segment of left upper lobe. Mild peripheral airspace disease within lingular segment of left upper lobe, new from previous examination. 0.6 cm RIGHT upper lobe nodule, similar to minimally increased in size from 06/02/2015. Pleural space: No pneumothorax. No significant effusion. Heart: No cardiomegaly. No significant pericardial effusion. Bones/joints: No acute fracture. Soft tissues: Unremarkable. Vasculature: Unremarkable. No aneurysm. Lymph nodes: No pathologically enlarged lymph nodes. IMPRESSION: 1. Findings concerning for early ARLEEN pneumonia in proper clinical setting. Followup to resolution to exclude underlying pathology. 2. Pulmonary nodule. Suggest followup CT in 6 months to reassess for stability. 3. Incidental/non-acute findings are described above.
[2017-05-24] MEDS ORDERED: Benzocaine/Menthol (Cepacol) Lozenge MT STA (01:15)
[2017-05-24] MEDS: Albuterol-Ipratrop 3 mg / 0.5 (3 ml) UD IH SCH ×5 (02:00→22:10)
[2017-05-24] MEDS: Pantoprazole 40 mg EC Tab PO SCH (05:45)
[2017-05-24] MEDS: Promethazine 6.25 MG/5 ML CUP PO PRN ×3 (06:55→22:51)
[2017-05-24] MEDS: cefTRIAXone 1 gm 1 GM/100 ML BAG IVPB SCH (10:35)
[2017-05-24] MEDS: MethylPREDNISolone 40 mg Vial IV SCH ×2 (10:35→21:43)
[2017-05-24] MEDS: Albuterol-Ipratrop 3 mg / 0.5 (3 ml) UD IH PRN ×2 (11:15)
[2017-05-24] MEDS: Oxycodone/Acetaminophen 5/325 mg Tab PO PRN (13:07)
[2017-05-24] MEDS ORDERED: HYDROmorphone 2 mg/ml ISec IVP PRN (15:13)
[2017-05-24] MEDS: HYDROmorphone 0.5 mg/0.5 ml ISec IVP PRN ×2 (15:46→21:45)
--- NOTE | 2017-05-24 21:10 | PN ---
DATE: SUBJECTIVE: The patient is a 52-year-old, seen and examined, still complaining of headache, body aches and pain. Complain of chest pain on coughing. She states her headache is not getting better. PHYSICAL EXAMINATION VITAL SIGNS: She has temperature of 99.8, pulse 84, respirations 20 and blood pressure 120/74. LUNGS: Bilateral fair airflow, has bilateral soft rhonchi. HEART: S1 and S2 audible. ABDOMEN: Soft, obese and nontender. No rebound. No guarding. NEUROLOGIC: The patient is awake, alert, oriented and communicative. ASSESSMENT: 1. Asthma exacerbation. 2. Bronchospasm. 3. Left lobe pneumonia. 4. Migraine headache. PLAN: The patient states Percocet is not helping, give her small dose of Dilaudid for next 48 hours and then will taper it down and switch to p.o. analgesics. Continue current antibiotics and nebulizer treatment. Itzel Claros MD
[2017-05-25] MEDS: Albuterol-Ipratrop 3 mg / 0.5 (3 ml) UD IH SCH ×5 (01:29→19:38)
[2017-05-25] MEDS ORDERED: Alum-Mag Hydrox-Simethicone Susp (30 mL) PO ONE (01:31)
[2017-05-25] MEDS: HYDROmorphone 0.5 mg/0.5 ml ISec IVP PRN ×3 (03:32→20:23)
[2017-05-25] MEDS: Pantoprazole 40 mg EC Tab PO SCH (06:56)
[2017-05-25] MEDS: cefTRIAXone 1 gm 1 GM/100 ML BAG IVPB SCH (11:14)
[2017-05-25] MEDS: MethylPREDNISolone 40 mg Vial IV SCH ×2 (11:15→21:00)
[2017-05-25] MEDS: Promethazine 6.25 MG/5 ML CUP PO PRN (18:03)
[2017-05-25] MEDS ORDERED: Benzocaine/Menthol (Cepacol) Lozenge MT ONE (22:55)
[2017-05-26] MEDS: Albuterol-Ipratrop 3 mg / 0.5 (3 ml) UD IH PRN ×3 (00:05→18:27)
--- NOTE | 2017-05-26 00:41 | PN ---
DATE: 05/25/2017 SUBJECTIVE: Patient has no complaints of any chest pain or shortness of breath or headaches. She states her breathing is better. PHYSICAL EXAMINATION: VITAL SIGNS: Temperature is 98.7, pulse is 71, blood pressure 123/75, respiration is 20. GENERAL: The patient is lying in bed, flat, comfortable. HEENT: No oral lesion. Anicteric sclerae. Moist mucosa. NECK: No JVD, adenopathy, or thyromegaly. CARDIOVASCULAR: S1 and S2, regular. No murmurs, rubs, or gallops. LUNGS: Clear to auscultation bilaterally. No wheeze, rales, or rhonchi. ABDOMEN: Bowel sounds are positive, soft, nontender and nondistended. EXTREMITIES: No cyanosis, clubbing or edema. LABORATORY DATA: White count 5.6, hemoglobin is 12, creatinine is 0.8. ASSESSMENT: 1. Acute asthma exacerbation. 2. Bronchospasm. 3. Community-acquired pneumonia. 4. Migraine headache. 6. A 0.5 mm right lung nodule. PLAN: The patient has a chest CT that shows left lower lobe pneumonia. On CAT scan, there is also a pulmonary nodule that is present. Pulmonary nodule is 0.6 cm in the right upper lobe. Similar size of the nodule that was checked in May 2015. The patient is on losartan for hypertension. She is going to be on Dilaudid for pain. She is on ibuprofen for pain as well. She is on Phenergan for her cough. She is on Zofran for nausea that she is complaining about. The patient is on methylprednisolone for her COPD. She is on heart-healthy diet. Luis Yan MD
[2017-05-26] MEDS: Albuterol-Ipratrop 3 mg / 0.5 (3 ml) UD IH SCH ×4 (01:06→19:57)
[2017-05-26] MEDS: Pantoprazole 40 mg EC Tab PO SCH (05:44)
[2017-05-26] MEDS: HYDROmorphone 0.5 mg/0.5 ml ISec IVP PRN ×4 (06:41→22:12)
[2017-05-26] MEDS: MethylPREDNISolone 40 mg Vial IV SCH ×2 (11:13→21:21)
[2017-05-26] MEDS: cefTRIAXone 1 gm 1 GM/100 ML BAG IVPB SCH (11:13)
[2017-05-26] MEDS: Alum-Mag Hydrox-Simethicone Susp (30 mL) PO PRN (11:47)
[2017-05-26] MEDS: Promethazine 6.25 MG/5 ML CUP PO PRN (18:43)
--- NOTE | 2017-05-26 20:40 | PN ---
DATE: SUBJECTIVE: The patient is 52 years old, seen and examined. Still complaining of cough, congestion. Headache is better. Still has wheezing. PHYSICAL EXAMINATION: VITAL SIGNS: She is afebrile, pulse 75, respirations 15, blood pressure 125/72. LUNGS: Bilateral rhonchi. HEART: S1 and S2 audible. ABDOMEN: Soft, obese, nontender. No rebound. No guarding. NEUROLOGIC: She is awake, alert, oriented. Able to communicate. Ambulatory. ASSESSMENT: 1. Chronic obstructive pulmonary disease exacerbation. 2. Bilateral minimal infiltrate. 3. Bronchospasm. 4. Intractable headache. 5. Asthmatic bronchitis. PLAN: We will continue the patient on nebulizer treatment. Continue on steroid. I will add doxycycline to cover atypicals. Continue Rocephin. Encourage ambulation. We will follow up this patient. Itzel Claros MD
[2017-05-27] MEDS: Albuterol-Ipratrop 3 mg / 0.5 (3 ml) UD IH SCH ×4 (01:40→19:43)
[2017-05-27] MEDS: Pantoprazole 40 mg EC Tab PO SCH (06:35)
[2017-05-27] MEDS: Alum-Mag Hydrox-Simethicone Susp (30 mL) PO PRN (08:35)
[2017-05-27] MEDS: cefTRIAXone 1 gm 1 GM/100 ML BAG IVPB SCH (10:40)
[2017-05-27] MEDS: MethylPREDNISolone 40 mg Vial IV SCH ×2 (10:41→22:03)
[2017-05-27] MEDS: HYDROmorphone 0.5 mg/0.5 ml ISec IVP PRN ×2 (10:47→19:16)
[2017-05-27] MEDS: Fluticasone Nasal 50 mcg/Spray NS SCH (15:04)
[2017-05-27] MEDS: Promethazine 6.25 MG/5 ML CUP PO PRN (17:12)
--- NOTE | 2017-05-27 18:49 | PN ---
DATE: SUBJECTIVE: Patient is 52 years old, seen and examined, lying in bed. Still complaining of cough, congestion, and wheezing. PHYSICAL EXAMINATION: VITAL SIGNS: She is afebrile, pulse 70, respirations 20, blood pressure 131/60. LUNGS: Bilateral harsh rhonchi. Gets short of breath on walking. HEART: S1 and S2 audible. ABDOMEN: Soft, obese, nontender. EXTREMITIES: Bilateral legs, +1 edema. ASSESSMENT: 1. Asthmatic bronchitis. 2. Right upper lobe pneumonia. 3. Bronchospasm. 4. Migraine headache. 5. Morbid obesity. 6. Hypertension. PLAN: We will continue patient on current medication. I will continue her on Solu-Medrol 40 q.12. We will continue to monitor. If patient's bronchospasm improves, we will make discharge plan. Itzel Claros MD
[2017-05-28] MEDS: HYDROmorphone 0.5 mg/0.5 ml ISec IVP PRN ×2 (00:23→08:08)
[2017-05-28] MEDS: Albuterol-Ipratrop 3 mg / 0.5 (3 ml) UD IH SCH ×3 (01:23→13:56)
[2017-05-28] MEDS: Pantoprazole 40 mg EC Tab PO SCH (05:36)
[2017-05-28 07:51] VITALS: BP 137/81; PULSE 72; RESP 20; TEMP 98.2; O2SAT 93
[2017-05-28] MEDS: cefTRIAXone 1 gm 1 GM/100 ML BAG IVPB SCH (09:15)
[2017-05-28] MEDS: MethylPREDNISolone 40 mg Vial IV SCH (09:15)
[2017-05-28] MEDS: Fluticasone Nasal 50 mcg/Spray NS SCH (09:16)
[2017-05-28] MEDS ORDERED: HYDROmorphone 1 mg/ml ISec IVP PRN (12:42)
--- NOTE | 2017-05-29 11:46 | DS ---
HISTORY OF PRESENT ILLNESS: The patient is 52-year-old, seen and examined, still has cough and congestion but less wheezing than before, able to ambulate without getting short of breath. Denies any nausea or vomiting. Headache is better. Body aches and pains have improved. PHYSICAL EXAMINATION VITAL SIGNS: She is afebrile. Pulse 72, respirations 20, blood pressure 137/81. LUNGS: Bilateral expiratory rhonchi, diffuse, although harsh but better than yesterday. ABDOMEN: Soft, obese, nontender. No rebound. No guarding. NEUROLOGIC: She is awake, alert and oriented, communicative and ambulatory. ASSESSMENT AND PLAN 1. Chronic obstructive pulmonary disease exacerbation. 2. Bronchospasm. 3. Asthmatic bronchitis. 4. Migraine headaches. 5. Hypertension. 6. Hyperlipidemia. 7. Morbid obesity. 8. Left upper lobe pneumonia. The plan is the patient is being discharged on doxycycline 100 mg twice a day for five days. She is given Medrol Dosepak. We will give her Percocet as needed. She is also given prescription of antitussive. She will follow up in the office in a week. Itzel Claros MD
== END 2017-05-28 14:18 | disposition home or self-care (01) | DRG 190 ==
LOC: ED 06:30 → 3RSO 09:35 → OBSVTOIN 09:43 → ERH 09:43 → UNDOADMOB 09:43 → INTOOBSV 09:43 → ERH 17:52 → 3RSO 18:48 → ERH 18:48 → 5RSO 05-23 20:43
PROVIDERS: ADMIT Internal Medicine; ATTEND Internal Medicine
PROC: 3E0F7GC Introduction of Other Therapeutic Substance into Respiratory Tract, Via Natural or Artificial Opening (ICD-10-PCS; principal; 2017-05-22)
DX: J44.1 Chronic obstructive pulmonary disease with (acute) exacerbation (principal); J45.901 Unspecified asthma with (acute) exacerbation; J18.9 Pneumonia, unspecified organism; E66.01 Morbid (severe) obesity due to excess calories; Z68.41 Body mass index [BMI] 40.0-44.9, adult; K21.9 Gastro-esophageal reflux disease without esophagitis; J44.0 Chronic obstructive pulmonary disease with (acute) lower respiratory infection; I10 Essential (primary) hypertension; G89.4 Chronic pain syndrome; M17.0 Bilateral primary osteoarthritis of knee; E78.5 Hyperlipidemia, unspecified; G43.909 Migraine, unspecified, not intractable, without status migrainosus; R91.1 Solitary pulmonary nodule; Z96.652 Presence of left artificial knee joint

== ENCOUNTER 2018-09-08 09:41 | Inpatient (IN) | payer OTHER ==
[2018-09-08] MEDS ORDERED: Sodium Chloride 0.9% 1,000 ML IV STA (10:50)
[2018-09-08 11:13] LABS: BASO # 0.01 K/mm3 (0.0-2.0); BASO % 0.1 % (0.0-3.0); EOS # 1.1 (0.0-0.7); LYMPH # 1.3 (1.2-3.4); LYMPH % 13.5 % (22.0-35.0); MEAN CELL VOLUME 86.3 fl (80.0-105.0); MEAN CORPUSCULAR HEMOGLOBIN 27.8 pg (25.0-35.0); MEAN CORPUSCULAR HGB CONC 32.3 g/dl (31.0-37.0); MONO # 0.6 (0.1-0.6); MONO % 6.8 % (1.0-6.0); RBC 4.67 10^6/uL (3.5-6.1); RED CELL DISTRIBUTION WIDTH 14.4 % (11.5-14.5); WHITE BLOOD COUNT 9.4 10^3/uL (4.5-11.0)
[2018-09-08 11:22] LABS: ALB/GLOB RATIO 1.2 (1.1-1.8); ALBUMIN 3.9 g/dL (3.0-4.8); ALT/SGPT 59 U/L (7-56); AST/SGOT 40 U/L (14-36); BLOOD UREA NITROGEN 20 mg/dL (7-21); GFR NON-AFRICAN AMERICAN > 60; LIPASE 60 U/L (23-300)
[2018-09-08 11:24] LABS: URINE BILIRUBIN NEGATIVE (NEGATIVE); URINE BLOOD MODERATE (NEGATIVE); URINE GLUCOSE (UA) NEGATIVE (NEGATIVE); URINE LEUKOCYTE ESTERASE TRACE Leu/uL (NEGATIVE); URINE PROTEIN TRACE mg/dL (<30 mg/dL); URINE UROBILINOGEN 0.2 E.U./dL (<1 E.U./dL)
[2018-09-08 11:26] LABS: URINE APPEARANCE CLEAR (CLEAR); URINE COLOR YELLOW (YELLOW)
[2018-09-08 11:28] LABS: URINE BACTERIA MANY /hpf; URINE EPITHELIAL CELLS MANY /hpf (0-5); URINE RBC 15 - 20 /hpf (0-2)
[2018-09-08 11:29] LABS: URINE AMORPHOUS SEDIMENT FEW /hpf
[2018-09-08] MEDS ORDERED: Morphine 4 mg/ml ISec IVP STA (11:30)
[2018-09-08 11:33] LABS: TROPONIN I < 0.01 ng/mL
--- NOTE | 2018-09-08 12:08 | ED PDOC ---
Arrival/HPI - General Chief Complaint: GI Problem Time Seen by Provider: 09/08/18 09:44 Historian: Patient - History of Present Illness Narrative History of Present Illness (Text): 09/08/18 12:03 53yr old female presents today with upper abdominal pain nausea vomiting and diarrhea that started yesterday. Patient denies chest pain or shortness of breath. She is complaining of low back pain. Patient denies urinary symptoms. Patient denies fevers or chills. Denies dizziness or weakness. No medications have been taken for pain at home. Patient describes the pain as sharp and achy located across the upper abdomen. Patient states that her granddaughter was hospitalized recently for abdominal pain with vomiting and diarrhea. Time/Duration: Other (yesterday) Symptom Onset: Gradual Symptom Course: Worsening Quality: Aching, Stabbing Severity Level: Moderate Past Medical History - Provider Review Nursing Documentation Reviewed: Yes - Travel History Have you recently traveled outside [place] w/in the past 3 mons?: No - Infectious Disease Hx of Infectious Diseases: None - Tetanus Immunization Tetanus Immunization: Unknown - Cardiac Hx Cardiac Disorders: Yes Hx Hypertension: Yes - Pulmonary Hx Respiratory Disorders: Yes Hx Asthma: Yes - Neurological Hx Neurological Disorder: Yes Hx Migraine: Yes - HEENT Hx HEENT Disorder: No - Renal Hx Renal Disorder: No - Endocrine/Metabolic Hx Endocrine Disorders: No - Hematological/Oncological Hx Blood Disorders: No - Integumentary Hx Dermatological Disorder: No - Musculoskeletal/Rheumatological Hx Musculoskeletal Disorders: Yes (BILATERAL KNEE REPLACEMENT) Hx Falls: Yes - Gastrointestinal Hx Gastrointestinal Disorders: Yes Hx Gastroesophageal Reflux: Yes - Genitourinary/Gynecological Hx Genitourinary Disorders: Yes (HYSTERECTOMY,TUBAL LIGATION) Hx Urinary Tract Infection: Yes - Psychiatric Hx Psychophysiologic Disorder: No Hx Emotional Abuse: No Hx Physical Abuse: No Hx Substance Use: No - Past Surgical History Past Surgical History: Non-Contributing - Surgical History Hx Orthopedic Surgery: Yes (left knee replacement) - Anesthesia Hx Anesthesia Reactions: No Hx Malignant Hyperthermia: No - Suicidal Assessment Feels Threatened In Home Enviroment: No Family/Social History - Physician Review Nursing Documentation Reviewed: Yes Family/Social History: Unknown Family HX Smoking Status: Never Smoked Hx Alcohol Use: No Amount per day: 0 Hx Substance Use: No Hx Substance Use Treatment: No Allergies/Home Meds Allergies/Adverse Reactions: Allergies latex Allergy (Mild, Verified 09/08/18 10:19) RASH aspirin Allergy (Verified 09/08/18 10:19) RASH levofloxacin Allergy (Verified 09/08/18 10:19) RASH moxifloxacin Allergy (Verified 09/08/18 10:19) RASH moxifloxacin HCl [From Avelox] Allergy (Verified 09/08/18 10:19) URTICARIA ondansetron Allergy (Verified 09/08/18 10:19) ITCHING pineapple Allergy (Verified 09/08/18 10:19) RASH Home Medications: Home Meds Medication Instructions Recorded Confirmed Unobtainable 09/08/18 09/08/18 Review of Systems - Review of Systems Constitutional: absent: Fatigue, Fevers Respiratory: absent: SOB, Cough Cardiovascular: absent: Chest Pain, Palpitations Gastrointestinal: Abdominal Pain, Diarrhea, Nausea, Vomiting Genitourinary Female: absent: Dysuria, Frequency, Hematuria Musculoskeletal: Back Pain. absent: Arthralgias, Neck Pain Skin: absent: Rash, Pruritis Neurological: absent: Headache, Dizziness Psychiatric: absent: Anxiety, Depression, Suicidal Ideation Physical Exam Vital Signs Reviewed: Yes Vital Signs Temp Pulse Resp BP Pulse Ox 09/08/18 09:45 98.4 F 87 18 140/84 98 Temperature: Afebrile Blood Pressure: Normal Pulse: Regular Respiratory Rate: Normal Appearance: Positive for: Well-Appearing, Non-Toxic, Comfortable Pain Distress: None Mental Status: Positive for: Alert and Oriented X 3 - Systems Exam Head: Present: Atraumatic Mouth: Present: Moist Mucous Membranes Neck: Present: Normal Range of Motion Respiratory/Chest: Present: Clear to Auscultation, Good Air Exchange. No: Respiratory Distress, Accessory Muscle Use Cardiovascular: Present: Regular Rate and Rhythm, Normal S1, S2. No: Murmurs Abdomen: Present: Tenderness (ruq and epigastric tenderness. minimal luq and minimal llq tenderness. ), Guarding (voluntary). No: Distention, Peritoneal Signs, Rebound Back: Present: Normal Inspection. No: CVA Tenderness, Midline Tenderness, Paraspinal Tenderness Upper Extremity: Present: Normal ROM Lower Extremity: Present: Normal ROM Neurological: Present: GCS=15, Speech Normal Skin: Present: Warm, Dry, Normal Color. No: Rashes Psychiatric: Present: Alert, Oriented x 3 Medical Decision Making ED Course and Treatment: 09/08/18 12:09 Patient is nontoxic well appearing with stable vital signs presenting with right and left upper abdominal pain. n/v/d. CBC wnl CMP wnl Lipase wnl Urinalysis + leukocytes CAT scan: FINDINGS: LOWER THORAX: Heart mildly enlarged.. No significant pericardial effusion. There a area of round/elliptical shaped soft tissue density in the left lingular region configuration of which likely representing an area of chronic atelectasis and or scarring which has undergone some retraction changes when compared with the prior CT chest 05/23/2017. . There is also a linear area of suspected scarring/fibrosis in the right middle lobe region as well. No effusion or basilar pneumothorax. LIVER: Liver exhibits normal size measuring just over 16 cm in CC dimension. Minor diffuse fatty hepatic infiltration.. No obvious hepatic mass collection or calcification. Portal and splenic veins are opacified. GALLBLADDER AND BILE DUCTS: Gallbladder physiologically distended. No evidence of intraluminal gallbladder calculi. PANCREAS: Pancreas remains slightly fatty replaced. No pancreatic masses collections or calcifications. SPLEEN: Spleen exhibits normal size and attenuation pattern without mass collection or calcification ADRENALS: There are no adrenal lesions seen. KIDNEYS AND URETERS: Kidneys demonstrate relatively symmetric nephrograms. No evidence of nephrolithiasis or hydronephrosis.. There is a rounded approximately 12 mm low- attenuation focus (possibly hyperdense cyst) along the lateral posterolateral cortex upper-midpole right kidney which is associated with a peripheral calci fication. Recommend interval surveillance of this slightly complex appearing cystic lesion. Redemonstrated are several small low-attenuation foci in the mid to lower pole right kidney and at least 1 low-attenuation focus anterior cortex mid pole left kidney. BLADDER: Urinary bladder is incompletely distended which presumably accounts for slight thick-walled appearance however correlation with urinalysis suggested.. No evidence of intraluminal urinary bladder calculi. REPRODUCTIVE: Unremarkable. APPENDIX: The appendix is not seen consistent with this patient's history of prior appendectomy. BOWEL: Evaluation of the bowel is somewhat limited due to the lack of oral contrast material. The stomach is incompletely distended with slight thick-walled appearance. Visualized loops of small bowel exhibit normal contour and caliber. No evidence of acute mechanical small bowel obstruction. Scattered colonic diverticula are seen along the sigmoid, descending as well as transverse colon.. Persistent mild wall thickening of a lengthy segment of descending and sigmoid colon, likely representing a combination of incomplete distention, peristalsis and some multi unopacified stool as well as mild chronic muscular hypertrophy due to diverticular disease. Clinical correlation recommended to exclude the possibility of a mild colitis PERITONEUM: Unremarkable. No fluid collection. No free air. Tiny fat containing umbilical hernia LYMPH NODES: There are a multiple small nonspecific mesenteric lymph nodes are present. Rule out mild mesenteric adenitis. VASCULATURE: Unremarkable. No aortic aneurysm. No aortic atherosclerotic calcification or mural plaque present. BONES: Minor multilevel degenerative spondylosis of the lumbar and to a lesser degree lower thoracic spine. OTHER FINDINGS: None. IMPRESSION: Minor fatty hepatic infiltration. Small complex appearing cystic lesion right kidney. Recommend interval surveillance to assess stability. There are additional multiple small low- attenuation foci right kidney and least 1 focus of low attenuation left kidney possibly representing hyperdense cysts. Minimal bladder wall thickening likely due to incomplete distention however correlation with urinalysis recommended to exclude cystitis Diverticulosis. Persistent mild wall thickening of a lengthy segment of descending and sigmoid colon which is likely representing likely due to combination of incomplete distention, peristalsis and some multi unopacified stool as well as mild chronic muscular hypertrophy due to diverticular disease. Clinical correlation recommended to exclude the possibility of a mild colitis Appendectomy. Few small nonspecific mesenteric lymph nodes. Rule out underlying mild mesenteric adenitis. Patient reassessment: pt with continued pain; morphine added. will treat with rocephin and flagyl for colitis and UTI. Discussed all results with patient in depth. case discussed with dr. dang: accepts admission for colitis, uti, intractable abd Impression: Abdominal pain, intractable. colitis, UTI admit med/surg - Lab Interpretations Lab Results: Troponin I < 0.01 ng/mL 09/08/18 11:00 Total Bilirubin 0.6 mg/dL (0.2-1.3) 09/08/18 11:00 AST 40 U/L (14-36) H 09/08/18 11:00 ALT 59 U/L (7-56) H 09/08/18 11:00 Alkaline Phosphatase 134 U/L (38-126) H 09/08/18 11:00 Total Protein 7.1 g/dL (5.8-8.3) 09/08/18 11:00 Albumin 3.9 g/dL (3.0-4.8) 09/08/18 11:00 Globulin 3.2 gm/dL 09/08/18 11:00 Albumin/Globulin Ratio 1.2 (1.1-1.8) 09/08/18 11:00 Lipase 60 U/L (23-300) 09/08/18 11:00 Urine Color Yellow (YELLOW) 09/08/18 11:00 Urine Appearance Clear (CLEAR) 09/08/18 11:00 Urine pH 6.0 (4.7-8.0) 09/08/18 11:00 Ur Specific [place] 1.025 (1.005-1.035) 09/08/18 11:00 Urine Protein Trace mg/dL (<30 mg/dL) H 09/08/18 11:00 Urine Glucose (UA) Negative mg/dL (NEGATIVE) 09/08/18 11:00 Urine Ketones Negative mg/dL (NEGATIVE) 09/08/18 11:00 Urine Blood Moderate (NEGATIVE) H 09/08/18 11:00 Urine Nitrate Negative (NEGATIVE) 09/08/18 11:00 Urine Bilirubin Negative (NEGATIVE) 09/08/18 11:00 Urine Urobilinogen 0.2 E.U./dL (<1 E.U./dL) 09/08/18 11:00 Ur Leukocyte Esterase Trace Kim/uL (NEGATIVE) H 09/08/18 11:00 Urine RBC 15 - 20 /hpf (0-2) H 09/08/18 11:00 Urine WBC 5 - 10 /hpf (0-6) H 09/08/18 11:00 Ur Epithelial Cells Many /hpf (0-5) H 09/08/18 11:00 Amorphous Sediment Few /hpf (NONE) 09/08/18 11:00 Urine Bacteria Many /hpf (NONE) 09/08/18 11:00 Urine Other Uyeast /hpf 09/08/18 11:00 - RAD Interpretation Radiology Orders: 09/08/18 10:50 CHEST PORTABLE [RAD] Stat 09/08/18 10:51 ABD & PELVIS IV CONTRAST ONLY [CT] Stat - Medication Orders Current Medication Orders: Discontinued Medications Sodium Chloride (Sodium Chloride 0.9%) 1,000 mls @ 999 mls/hr IV .Q1H1M STA Stop: 09/08/18 11:50 Last Admin: 09/08/18 10:54 Dose: 999 mls/hr eMAR Start Stop Document 09/08/18 10:54 MARCELO (Rec: 09/08/18 10:55 [id number] Intravenous Solution Start Date 09/08/18 Start Time 10:55 End Date 09/08/18 End time 11:55 Total Infusion Time 60 Morphine Sulfate (Morphine) 4 mg IVP STAT STA Stop: 09/08/18 11:31 Last Admin: 09/08/18 11:42 Dose: 4 mg MAR Pain Assessment Document 09/08/18 11:42 MARCELO (Rec: 09/08/18 11:44 [place]ELO [place] [id number]) Pain Reassessment Is this a pain reassessment? Yes Presence of Pain Presence of Pain Yes Pain Scale Used Protocol: PSCALES Pain Scale Used Numeric Location Pain Location Body Site Abdomen Description Description Intermittent Intensity of Pain at present 10 IVP Administration Document 09/08/18 11:42 MARCELO (Rec: 09/08/18 11:44 MARCELO [place] [id number]) Charges for Administration # of IVP Administrations 1 Disposition/Present on Arrival - Present on Arrival Any Indicators Present on Arrival: No History of DVT/PE: No History of Uncontrolled Diabetes: No Urinary Catheter: No History of Decub. Ulcer: No History Surgical Site Infection Following: None - Disposition Have Diagnosis and Disposition been Completed?: Yes Diagnosis: Abdominal pain, Colitis, Urinary tract infection Disposition: HOSPITALIZED Disposition Time: 15:00 Patient Plan: Admission Condition: FAIR
--- NOTE | 2018-09-08 12:37 | RAD ---
Date of service: 09/08/2018 HISTORY: Upper abdominal pain COMPARISON: Comparison made with chest radiograph 05/22/2017. TECHNIQUE: 1 view obtained. FINDINGS: LUNGS: Suspect minimal bibasilar atelectasis PLEURA: No significant pleural effusion identified, no pneumothorax apparent. CARDIOVASCULAR: No aortic atherosclerotic calcification present. Heart size is borderline-mildly enlarged. No pulmonary vascular congestion. OSSEOUS STRUCTURES: No significant abnormalities. VISUALIZED UPPER ABDOMEN: Normal. OTHER FINDINGS: None. IMPRESSION: Suspect minimal bibasilar atelectasis.
--- NOTE | 2018-09-08 13:24 | CT ---
Date of service: 09/08/2018 PROCEDURE: CT abdomen and pelvis. HISTORY: Abdominal pain. COMPARISON: Comparison made with prior CT scan chest abdomen pelvis performed as part of a dissection study 07/24/2016 dated 01/16/2016. Comparison also made with CT chest dated 05/23/2017 which imaged both lung bases. TECHNIQUE: Contiguous axial images of the abdomen and pelvis following intravenous injection of approximately 147 cc Omnipaque 350 contrast material. Additional 2D sagittal and coronal reformats generated. Radiation dose: Total exam DLP = 1385.68 mGy-cm. This CT exam was performed using one or more of the following dose reduction techniques: Automated exposure control, adjustment of the mA and/or kV according to patient size, and/or use of iterative reconstruction technique. FINDINGS: LOWER THORAX: Heart mildly enlarged.. No significant pericardial effusion. There a area of round/elliptical shaped soft tissue density in the left lingular region configuration of which likely representing an area of chronic atelectasis and or scarring which has undergone some retraction changes when compared with the prior CT chest 05/23/2017. . There is also a linear area of suspected scarring/fibrosis in the right middle lobe region as well. No effusion or basilar pneumothorax. LIVER: Liver exhibits normal size measuring just over 16 cm in CC dimension. Minor diffuse fatty hepatic infiltration.. No obvious hepatic mass collection or calcification. Portal and splenic veins are opacified. GALLBLADDER AND BILE DUCTS: Gallbladder physiologically distended. No evidence of intraluminal gallbladder calculi. PANCREAS: Pancreas remains slightly fatty replaced. No pancreatic masses collections or calcifications. SPLEEN: Spleen exhibits normal size and attenuation pattern without mass collection or calcification ADRENALS: There are no adrenal lesions seen. KIDNEYS AND URETERS: Kidneys demonstrate relatively symmetric nephrograms. No evidence of nephrolithiasis or hydronephrosis.. There is a rounded approximately 12 mm low-attenuation focus (possibly hyperdense cyst) along the lateral posterolateral cortex upper-midpole right kidney which is associated with a peripheral calcification. Recommend interval surveillance of this slightly complex appearing cystic lesion. Redemonstrated are several small low-attenuation foci in the mid to lower pole right kidney and at least 1 low-attenuation focus anterior cortex mid pole left kidney. BLADDER: Urinary bladder is incompletely distended which presumably accounts for slight thick-walled appearance however correlation with urinalysis suggested.. No evidence of intraluminal urinary bladder calculi. REPRODUCTIVE: Unremarkable. APPENDIX: The appendix is not seen consistent with this patient's history of prior appendectomy. BOWEL: Evaluation of the bowel is somewhat limited due to the lack of oral contrast material. The stomach is incompletely distended with slight thick-walled appearance. Visualized loops of small bowel exhibit normal contour and caliber. No evidence of acute mechanical small bowel obstruction. Scattered colonic diverticula are seen along the sigmoid, descending as well as transverse colon.. Persistent mild wall thickening of a lengthy segment of descending and sigmoid colon, likely representing a combination of incomplete distention, peristalsis and some multi unopacified stool as well as mild chronic muscular hypertrophy due to diverticular disease. Clinical correlation recommended to exclude the possibility of a mild colitis PERITONEUM: Unremarkable. No fluid collection. No free air. Tiny fat containing umbilical hernia LYMPH NODES: There are a multiple small nonspecific mesenteric lymph nodes are present. Rule out mild mesenteric adenitis. VASCULATURE: Unremarkable. No aortic aneurysm. No aortic atherosclerotic calcification or mural plaque present. BONES: Minor multilevel degenerative spondylosis of the lumbar and to a lesser degree lower thoracic spine. OTHER FINDINGS: None. IMPRESSION: Minor fatty hepatic infiltration. Small complex appearing cystic lesion right kidney. Recommend interval surveillance to assess stability. There are additional multiple small low-attenuation foci right kidney and least 1 focus of low attenuation left kidney possibly representing hyperdense cysts. Minimal bladder wall thickening likely due to incomplete distention however correlation with urinalysis recommended to exclude cystitis Diverticulosis. Persistent mild wall thickening of a lengthy segment of descending and sigmoid colon which is likely representing likely due to combination of incomplete distention, peristalsis and some multi unopacified stool as well as mild chronic muscular hypertrophy due to diverticular disease. Clinical correlation recommended to exclude the possibility of a mild colitis Appendectomy. Few small nonspecific mesenteric lymph nodes. Rule out underlying mild mesenteric adenitis.
[2018-09-08] MEDS ORDERED: cefTRIAXone 1 gm 1 GM/100 ML BAG IVPB STA (15:22)
[2018-09-08] MEDS ORDERED: Morphine 2 mg/ml ISec IVP STA (15:22)
[2018-09-08] MEDS ORDERED: metroNIDAZOLE IV 500 mg/100 ml 500 MG/100 ML BAG IVPB STA (15:22)
[2018-09-08] MEDS ORDERED: Sodium Chloride 0.9% 1,000 ML IV SCH (16:30)
--- NOTE | 2018-09-08 18:18 | CARD ---
APPROVED REPORT Date of service: 09/08/2018 EKG Measurement Heart [id number] ME 154P-7 [id number] <Conclusion> Normal sinus rhythm Normal ECG
[2018-09-08] MEDS ORDERED: HYDROmorphone 2 mg/ml ISec IVP PRN (18:36)
[2018-09-08] MEDS ORDERED: Albuterol-Ipratrop 3 mg / 0.5 (3 ml) UD IH PRN (18:36)
[2018-09-08 18:57] VITALS: BMI 44.4
[2018-09-08] MEDS: HYDROmorphone 1 mg/ml ISec IVP PRN ×2 (19:33→23:30)
[2018-09-08] MEDS: Albuterol-Ipratrop 3 mg / 0.5 (3 ml) UD IH SCH (19:45)
--- NOTE | 2018-09-08 19:51 | HP ---
DATE OF EXAM: 09/08/2018 HISTORY OF PRESENT ILLNESS: The patient is a 53-year-old, well known to me from office practice. The patient was seen in office last evening because of asthma exacerbation. She was given IV infused steroids, she was given Ceftin 500 mg twice a day, Xyzal 1 mg tablet daily and prednisone. The patient states she started to have upper abdominal pain associated with nausea and vomiting and diarrhea, which started yesterday. No history of chest pain. She does complain of low back pain, complain of knee pain. No history of fevers or chills. Generalized weakness. No appetite. PAST MEDICAL HISTORY: Significant for; 1. She has intermittent severe asthma. 2. History of migraine headache. 3. Hypertension. 4. Morbid obesity. 5. Knee arthritis. 6. History of gastroesophageal reflux disease. PAST SURGICAL HISTORY: Significant for total hysterectomy and tubal ligation. ALLERGIES: SHE IS ALLERGIC TO LATEX, ASPIRIN, LEVAQUIN, AVELOX, AND PINEAPPLES. MEDICATIONS: At home, she is on Fioricet and Percocet as needed. She takes nebulizer treatment. She is on Singulair. She takes Xyzal. SOCIAL HISTORY: She is , lives with her . Denies smoking, drinking, or alcohol use. PHYSICAL EXAMINATION GENERAL: She is awake and alert; able to communicate. VITAL SIGNS: She is afebrile, pulse 87, respirations 18, blood pressure 139/72. LUNGS: Bilateral fair airflow. Few expiratory rhonchi. HEART: S1 and S2 audible. ABDOMEN: Soft, left upper quadrant and lower quadrant discomfort. NEUROLOGIC: She is awake and alert; able to communicate. LABORATORY EXAM: WBC is 9.4, hemoglobin 13, hematocrit 40, and platelet 279. Chemistry; sodium 137, potassium 4, chloride 103, CO2 of 27, BUN 20, creatinine 0.6, blood sugar of 103. AST 40, ALT 59, alkaline phosphatase 134. Urine shows wbc 5 to 10, rbc 15 to 20[address] scan of the abdomen and pelvis done that shows fatty hepatic infiltrations, small complex appearing cystic lesion in the right kidney. Additional multiple small low attenuation in the right kidney, minimal bladder thickening. Persistent mild wall thickening of the lengthy segment of descending colon and sigmoid colon, which is due to combination of incomplete distension and diverticulitis. ASSESSMENT: 1. Descending colitis. 2. History of asthma. 3. Hypertension. 4. Hyperlipidemia. 5. Migraine headaches. 6. Morbid obesity. PLAN: The patient is being admitted. We will start her on a clear liquid diet. We will give her IV fluid. We will start her on IV antibiotics. GI consult by Dr. Morfin has been referred. We will resume her usual medications. We will follow up the patient in a.m. Itzel Claros MD
[2018-09-08] MEDS: metroNIDAZOLE IV 500 mg/100 ml 500 MG/100 ML BAG IVPB SCH (21:25)
[2018-09-09] MEDS: Albuterol-Ipratrop 3 mg / 0.5 (3 ml) UD IH SCH ×4 (02:00→19:22)
[2018-09-09] MEDS: HYDROmorphone 1 mg/ml ISec IVP PRN ×5 (04:36→23:32)
[2018-09-09] MEDS: metroNIDAZOLE IV 500 mg/100 ml 500 MG/100 ML BAG IVPB SCH ×3 (05:22→21:22)
[2018-09-09] MEDS: Enoxaparin 30 mg Syringe SC SCH (09:28)
[2018-09-09] MEDS: cefTRIAXone 1 gm 1 GM/100 ML BAG IVPB SCH (09:29)
--- NOTE | 2018-09-09 11:14 | CP.PCM.CON ---
<Adal Leavitt - Last Filed: 09/09/18 18:05> History of Present Illness - History of Present Illness History of Present Illness: Adal Leavitt Internal Medicine Resident- Consult Note on Behalf of Dr. Morfin Subjective: CC: Abdominal pain, nausea, vomiting, diarrhea HPI: Patient is a 53 year old female with a past medical history of asthma, migraine headaches, hypertension, morbid obesity, arthritis, and GERD who was admitted for evaluation and treatment of abdominal pain, nausea, vomiting, and diarrhea. The GI team was consulted for management/recommendations on the aforementioned symptoms. Patient states the abdominal pain started 4 days ago after a family ba rbeque. The pain originates and remains localized in the epigastrium. It is characterized as being a cramping sensation and is worsened with PO intake. The pain is associated with nausea and 4 bouts of nonbloody, nonbilious emesis. Patient also admits to several daily bouts of nonbloody diarrhea. States that other family members who attended the barbeque are also experiencing similar symptoms. Denies fever, chills, chest pain, SOB, and urinary symptoms. 12 system ROS negative except as indicated in the HPI PMHx: asthma, migraine headaches, hypertension, morbid obesity, arthritis, and GERD PSHx: tubal ligation, total hysterectomy Allergies: latex, aspirin, levofloxacin, moxifloxacin, moxifloxacin HCl, zofran, pineapple FHx: non-contributory Social: Denies ETOH use, Former tobacco use, quit 30 years ago, denies illicit drug use Physical Examination: - Constitutional Appears: Non-toxic, No Acute Distress - Eye Exam Eye Exam: EOMI, PERRL - ENT Exam ENT Exam: Mucous Membranes Moist - Respiratory Exam Respiratory Exam: Clear to Auscultation Bilateral. absent: Rales, Rhonchi, Wheezes - Cardiovascular Exam Cardiovascular Exam: RRR, +S1, +S2 - GI/Abdominal Exam GI & Abdominal Exam: tender to palpation in the epigastric region, Normal Bowel Sounds, Soft. absent: Distended, Firm, Guarding, Mass, Organomegaly, Rigid - Extremities Exam Extremities exam: Positive for: normal inspection. Negative for: pedal edema - Neurological Exam Neurological exam: Alert, Oriented x3 - Skin Skin Exam: Dry, Warm Studies Reviewed: CT Abdomen and Pelvis with IV Contrast- Minor fatty hepatic infiltration. Small complex appearing cystic lesion right kidney. Recommend interval surveillance to assess stability. There are additional multiple small low-attenuation foci right kidney and least 1 focus of low attenuation left kidney possibly representing hyperdense cysts. Minimal bladder wall thickening likely due to incomplete distention. Diverticulosis. Persistent mild wall thickening of a lengthy segment of descending and sigmoid colon which is likely representing likely due to combination of incomplete distention, peristalsis and some multi unopacified stool as well as mild chronic muscular hypertrophy due to diverticular disease. Appendectomy. Few small nonspecific mesenteric lymph nodes. Rule out underlying mild mesenteric adenitis. 2016 Colonoscopy- one polyp in transverse colon (bx- tubular adenoma), diverticulosis of the descending/sigmoid colon Assessment and Plan: Patient is a 53 year old female with a past medical history of asthma, migraine headaches, hypertension, morbid obesity, arthritis, and GERD who was admitted for evaluation and treatment of abdominal pain, nausea, vomiting, and diarrhea. Diverticulosis- potential colitis on imaging GERD HTN - continue with flagyl 500mg IV q8h and rocephin 1 gram IV daily - pain control via prn IV Diluadid 1mg q4h - continue on clears - continue IVF NS @ 80cc/hr - continue pantoprazole 40mg IV daily Patient seen, case discussed with, and plan approved by attending physician, Dr. Morfin. Past Patient History - Infectious Disease Hx of Infectious Diseases: None - Tetanus Immunizations Tetanus Immunization: Unknown - Past Medical History & Family History Past Medical History?: Yes - Past Social History Smoking Status: Never Smoked - CARDIAC Hx Cardiac Disorders: Yes Hx Hypertension: Yes - PULMONARY Hx Respiratory Disorders: Yes Hx Asthma: Yes - NEUROLOGICAL Hx Neurological Disorder: Yes Hx Migraine: Yes - HEENT Hx HEENT Problems: No - RENAL Hx Chronic Kidney Disease: No - ENDOCRINE/METABOLIC Hx Endocrine Disorders: No - HEMATOLOGICAL/ONCOLOGICAL Hx Blood Disorders: No - INTEGUMENTARY Hx Dermatological Problems: No - MUSCULOSKELETAL/RHEUMATOLOGICAL Hx Musculoskeletal Disorders: Yes (BILATERAL KNEE REPLACEMENT) Hx Falls: Yes - GASTROINTESTINAL Hx Gastrointestinal Disorders: Yes Hx Gastroesophageal Reflux: Yes - GENITOURINARY/GYNECOLOGICAL Hx Genitourinary Disorders: Yes (HYSTERECTOMY,TUBAL LIGATION) Hx Urinary Tract Infection: Yes - PSYCHIATRIC Hx Psychophysiologic Disorder: No Hx Emotional Abuse: No Hx Physical Abuse: No Hx Substance Use: No - SURGICAL HISTORY Hx Orthopedic Surgery: Yes (left knee replacement) - ANESTHESIA Hx Anesthesia Reactions: No Hx Malignant Hyperthermia: No Meds Allergies/Adverse Reactions: Allergies Allergy/AdvReac Type Severity Reaction Status Date / Time latex Allergy Mild RASH Verified 09/08/18 10:19 aspirin Allergy RASH Verified 09/08/18 10:19 levofloxacin Allergy RASH Verified 09/08/18 10:19 moxifloxacin Allergy RASH Verified 09/08/18 10:19 moxifloxacin HCl Allergy URTICARIA Verified 09/08/18 10:19 [From Avelox] ondansetron Allergy ITCHING Verified 09/08/18 10:19 pineapple Allergy RASH Verified 09/08/18 10:19 - Medications Medications: Current Medications Acetaminophen (Tylenol 325mg Tab) 650 mg PO Q6H PRN PRN Reason: Fever >100.4 F Albuterol/Ipratropium (Duoneb 3 Mg/0.5 Mg (3 Ml) Ud) 3 ml IH Q2H PRN PRN Reason: Shortness of Breath Albuterol/Ipratropium (Duoneb 3 Mg/0.5 Mg (3 Ml) Ud) 3 ml IH [id number] [facility] Last Admin: 09/09/18 07:19 Dose: 3 ml Enoxaparin Sodium (Lovenox) 30 mg SC DAILY [facility]; Protocol Last Admin: 09/09/18 09:28 Dose: 30 mg Hydromorphone HCl (Dilaudid) 1 mg IVP Q4H PRN PRN Reason: Pain, moderate (4-7) Last Admin: 09/09/18 09:34 Dose: 1 mg Sodium Chloride (Sodium Chloride 0.9%) 1,000 mls @ 80 mls/hr IV .[id number] [facility] Dextrose/Sodium Chloride (Dextrose 5%/0.45% Ns 1000 Ml) 1,000 mls @ 100 mls/hr IV .Q10H [facility] Metronidazole (Flagyl) 500 mg in 100 mls @ 100 mls/hr IVPB Q8 [facility]; Protocol Last Admin: 09/09/18 05:22 Dose: 100 mls/hr Ceftriaxone Sodium (Rocephin 1 Gram Ivpb) 1 gm in 100 mls @ 100 mls/hr IVPB DAILY [facility]; Protocol Last Admin: 09/09/18 09:29 Dose: 100 mls/hr Pantoprazole Sodium (Protonix Inj) 40 mg IVP DAILY [facility] Last Admin: 09/09/18 09:28 Dose: 40 mg Results - Vital Signs Recent Vital Signs: Last Vital Signs Temp 98 F 09/09/18 06:00 Pulse 87 09/09/18 06:00 Resp 20 09/09/18 06:00 BP 115/61 09/09/18 06:00 Pulse Ox 94 L 09/09/18 06:00 - Labs Result Diagrams: 09/08/18 11:00 09/08/18 11:00 Labs: Laboratory Results - last 24 hr 09/08/18 09/08/18 09/08/18 11:00 11:00 11:00 WBC 9.4 RBC 4.67 Hgb 13.0 Hct 40.3 MCV 86.3 D MCH 27.8 MCHC 32.3 RDW 14.4 Plt Count 279 MPV 11.0 Neut % (Auto) 67.6 Lymph % (Auto) 13.5 L [place] % (Auto) 6.8 H Eos % (Auto) 12.0 H Baso % (Auto) 0.1 Lymph # (Auto) 1.3 [place] # (Auto) 0.6 Eos # (Auto) 1.1 H Baso # (Auto) 0.01 Absolute Neuts (auto) 6.35 Sodium 137 Potassium 4.0 Chloride 103 Carbon Dioxide 27 Anion Gap 12 BUN 20 Creatinine 0.6 L Est GFR ( Amer) > 60 Est GFR (Non-Af Amer) > 60 Random Glucose 103 Calcium 9.0 Total Bilirubin 0.6 AST 40 H ALT 59 H Alkaline Phosphatase 134 H Lactate Dehydrogenase 613 Total Creatine Kinase 54 Troponin I < 0.01 Total Protein 7.1 Albumin 3.9 Globulin 3.2 Albumin/Globulin Ratio 1.2 Lipase 60 Urine Color Yellow Urine Appearance Clear Urine pH 6.0 Ur Specific [place] 1.025 Urine Protein Trace H Urine Glucose (UA) Negative Urine Ketones Negative Urine Blood Moderate H Urine Nitrate Negative Urine Bilirubin Negative Urine Urobilinogen 0.2 Ur Leukocyte Esterase Trace H Urine RBC 15 - 20 H Urine WBC 5 - 10 H Ur Epithelial Cells Many H Amorphous Sediment Few Urine Bacteria Many Urine Other [place] <Margarita Morfin V - Last Filed: 09/09/18 22:05> Meds - Medications Medications: Current Medications Acetaminophen (Tylenol 325mg Tab) 650 mg PO Q6H PRN PRN Reason: Fever >100.4 F Albuterol/Ipratropium (Duoneb 3 Mg/0.5 Mg (3 Ml) Ud) 3 ml IH Q2H PRN PRN Reason: Shortness of Breath Albuterol/Ipratropium (Duoneb 3 Mg/0.5 Mg (3 Ml) Ud) 3 ml IH [id number] SHAQ Last Admin: 09/09/18 19:22 Dose: 3 ml Enoxaparin Sodium (Lovenox) 30 mg SC DAILY [facility]; Protocol Last Admin: 09/09/18 09:28 Dose: 30 mg Hydromorphone HCl (Dilaudid) 1 mg IVP Q4H PRN PRN Reason: Pain, moderate (4-7) Last Admin: 09/09/18 18:45 Dose: 1 mg Dextrose/Sodium Chloride (Dextrose 5%/0.45% Ns 1000 Ml) 1,000 mls @ 100 mls/hr IV .Q10H [facility] Last Admin: 09/09/18 17:24 Dose: 100 mls/hr Metronidazole (Flagyl) 500 mg in 100 mls @ 100 mls/hr IVPB Q8 [facility]; Protocol Last Admin: 09/09/18 21:22 Dose: 100 mls/hr Ceftriaxone Sodium (Rocephin 1 Gram Ivpb) 1 gm in 100 mls @ 100 mls/hr IVPB DAILY [facility]; Protocol Last Admin: 09/09/18 09:29 Dose: 100 mls/hr Pantoprazole Sodium (Protonix Inj) 40 mg IVP DAILY [facility] Last Admin: 09/09/18 09:28 Dose: 40 mg Results - Vital Signs Recent Vital Signs: Last Vital Signs Temp 98.1 F 09/09/18 21:34 Pulse 67 09/09/18 21:34 Resp 20 09/09/18 21:34 BP 133/78 09/09/18 21:34 Pulse Ox 98 09/09/18 21:34 - Labs Result Diagrams: 09/08/18 11:00 09/08/18 11:00 Attending/Attestation - Attestation I have personally seen and examined this patient.: Yes I have fully participated in the care of the patient.: Yes I have reviewed all pertinent clinical information: Yes Notes (Text): This patient was seen and evaluated along with the resident earlier. CT scan was reviewed. There is an addendum to the GI consultation report dictated by the resident. Clinically enterocolitis. Continue the antibiotics follow-up stool studies follow-up labs 09/09/18 22:04
--- NOTE | 2018-09-09 14:08 | PN ---
DATE: 09/09/2018 SUBJECTIVE: The patient is 53 years old, seen and examined, still complaining of abdominal discomfort. No nausea or vomiting. No diarrhea. PHYSICAL EXAMINATION: VITAL SIGNS: She is afebrile, pulse 87, respirations 20, and blood pressure 115/61. LUNGS: Bilateral fair airflow. No rhonchi or crackle. HEART: S1 and S2 audible. ABDOMEN: Soft. She has some discomfort in the left upper and left lower quadrant area. No rebound or guarding. NEUROLOGIC: She is awake and alert; able to communicate. LABORATORY DATA: There are no new labs available today. Her AST 40, ALT 59, and alk phos is 134. Urinalysis show gram-negative rods. ASSESSMENT: 1. Gram-negative urinary tract infection. 2. Colitis. 3. Constipation. 4. History of asthma. 5. Hypertension. 6. Morbid obesity. 7. History of knee osteoarthritis. PLAN: Currently, the patient is on IV fluids. She is on clear liquid diet. We will continue that. She is on DVT prophylaxis. She is on IV antibiotics and IV fluids. Awaiting GI input. She is on Rocephin to cover her gram-negative UTI. Itzel Claros MD
[2018-09-09] MEDS: Dextrose 5%/0.45% NS 1,000 ML IV SCH (17:24)
[2018-09-10] MEDS: Albuterol-Ipratrop 3 mg / 0.5 (3 ml) UD IH SCH ×4 (01:16→19:45)
[2018-09-10] MEDS: HYDROmorphone 1 mg/ml ISec IVP PRN ×5 (03:26→22:32)
[2018-09-10] MEDS: metroNIDAZOLE IV 500 mg/100 ml 500 MG/100 ML BAG IVPB SCH (05:53)
[2018-09-10] MEDS: cefTRIAXone 1 gm 1 GM/100 ML BAG IVPB SCH (10:38)
[2018-09-10] MEDS: Enoxaparin 30 mg Syringe SC SCH (10:39)
[2018-09-10] MEDS ORDERED: Meropenem IV 1 gm in NS 1 GM/50 ML BAG IVPB SCH (11:00)
--- NOTE | 2018-09-10 11:57 | CP.PCM.PN ---
<Adal Leavitt - Last Filed: 09/10/18 11:53> Subjective - Date & Time of Evaluation Date of Evaluation: 09/10/18 Time of Evaluation: 10:30 - Subjective Subjective: Adal Leavitt Internal Medicine Resident- Progress Note on Behalf of Dr. Morfin Subjective: Patient seen and examined in chair next to bed. Admits to baseline epigastric abdominal pain and nausea. Only able to take minimal PO intake. Denies further episodes of diarrhea and emesis. Denies fever, chills, chest pain, SOB, and urinary symptoms. 12 system ROS negative except as indicated in the HPI Physical Examination: - Constitutional Appears: Non-toxic, No Acute Distress - Eye Exam Eye Exam: EOMI, PERRL - ENT Exam ENT Exam: Mucous Membranes Moist - Respiratory Exam Respiratory Exam: Clear to Auscultation Bilateral. absent: Rales, Rhonchi, Wheezes - Cardiovascular Exam Cardiovascular Exam: RRR, +S1, +S2 - GI/Abdominal Exam GI & Abdominal Exam: tender to palpation in the epigastric region, Normal Bowel Sounds, Soft. absent: Distended, Firm, Guarding, Mass, Organomegaly, Rigid - Extremities Exam Extremities exam: Positive for: normal inspection. Negative for: pedal edema - Neurological Exam Neurological exam: Alert, Oriented x3 - Skin Skin Exam: Dry, Warm Studies Reviewed: CT Abdomen and Pelvis with IV Contrast- Minor fatty hepatic infiltration. Small complex appearing cystic lesion right kidney. Recommend interval surveillance to assess stability. There are additional multiple small low-attenuation foci right kidney and least 1 focus of low attenuation left kidney possibly representing hyperdense cysts. Minimal bladder wall thickening likely due to incomplete distention. Diverticulosis. Persistent mild wall thickening of a lengthy segment of descending and sigmoid colon which is likely representing likely due to combination of incomplete distention, peristalsis and some multi unopacified stool as well as mild chronic muscular hypertrophy due to diverticular disease. Appendectomy. Few small nonspecific mesenteric lymph nodes. Rule out underlying mild mesenteric adenitis. 2016 Colonoscopy- one polyp in transverse colon (bx- tubular adenoma), diverticulosis of the descending/sigmoid colon Assessment and Plan: Patient is a 53 year old female with a past medical history of asthma, migraine headaches, hypertension, morbid obesity, arthritis, and GERD who was admitted for evaluation and treatment of abdominal pain, nausea, vomiting, and diarrhea. Diverticulosis- potential colitis on imaging GERD HTN - continue with flagyl 500mg IV q8h and rocephin 1 gram IV daily - pain control via prn IV Diluadid 1mg q4h - continue on clears - continue IVF NS @ 80cc/hr - continue pantoprazole 40mg IV daily Patient seen, case discussed with, and plan approved by attending physician, Dr. Morfin. Objective - Vital Signs/Intake and Output Vital Signs (last 24 hours): Temp Pulse Resp BP Pulse Ox 98.2 F 72 18 117/78 94 L 09/10/18 06:00 09/10/18 06:00 09/10/18 06:00 09/10/18 06:00 09/10/18 06:00 Intake and Output: 09/10/18 09/10/18 06:59 18:59 Intake Total 2400 Balance 2400 - Medications Medications: Current Medications Acetaminophen (Tylenol 325mg Tab) 650 mg PO Q6H PRN PRN Reason: Fever >100.4 F Albuterol/Ipratropium (Duoneb 3 Mg/0.5 Mg (3 Ml) Ud) 3 ml IH Q2H PRN PRN Reason: Shortness of Breath Albuterol/Ipratropium (Duoneb 3 Mg/0.5 Mg (3 Ml) Ud) 3 ml IH [id number] [facility] Last Admin: 09/10/18 07:20 Dose: 3 ml Enoxaparin Sodium (Lovenox) 30 mg SC DAILY [facility]; Protocol Last Admin: 09/10/18 10:39 Dose: 30 mg Hydromorphone HCl (Dilaudid) 1 mg IVP Q4H PRN PRN Reason: Pain, moderate (4-7) Last Admin: 09/10/18 08:35 Dose: 1 mg Dextrose/Sodium Chloride (Dextrose 5%/0.45% Ns 1000 Ml) 1,000 mls @ 100 mls/hr IV .Q10H [facility] Last Admin: 09/09/18 17:24 Dose: 100 mls/hr Metronidazole (Flagyl) 500 mg in 100 mls @ 100 mls/hr IVPB Q8 [facility]; Protocol Last Admin: 09/10/18 05:53 Dose: 100 mls/hr Pantoprazole Sodium (Protonix Inj) 40 mg IVP DAILY [facility] Last Admin: 09/09/18 09:28 Dose: 40 mg - Labs Labs: 09/08/18 11:00 09/08/18 11:00 <Margarita Morfin V - Last Filed: 09/10/18 19:22> Objective - Vital Signs/Intake and Output Vital Signs (last 24 hours): Temp Pulse Resp BP Pulse Ox 98.1 F 70 18 157/74 H 97 09/10/18 14:00 09/10/18 14:00 09/10/18 14:00 09/10/18 14:00 09/10/18 14:00 - Medications Medications: Current Medications Acetaminophen (Tylenol 325mg Tab) 650 mg PO Q6H PRN PRN Reason: Fever >100.4 F Albuterol/Ipratropium (Duoneb 3 Mg/0.5 Mg (3 Ml) Ud) 3 ml IH Q2H PRN PRN Reason: Shortness of Breath Last Admin: 09/10/18 13:52 Dose: 3 ml Albuterol/Ipratropium (Duoneb 3 Mg/0.5 Mg (3 Ml) Ud) 3 ml IH [id number] [facility]AQ Last Admin: 09/10/18 13:06 Dose: Not Given Enoxaparin Sodium (Lovenox) 30 mg SC DAILY [facility]; Protocol Last Admin: 09/10/18 10:39 Dose: 30 mg Hydromorphone HCl (Dilaudid) 1 mg IVP Q4H PRN PRN Reason: Pain, moderate (4-7) Last Admin: 09/10/18 18:10 Dose: 1 mg Dextrose/Sodium Chloride (Dextrose 5%/0.45% Ns 1000 Ml) 1,000 mls @ 100 mls/hr IV .Q10H [facility] Last Admin: 09/10/18 13:59 Dose: 100 mls/hr Meropenem (Merrem Iv 1 Gm Premix) 1 gm in 50 mls @ 100 mls/hr IVPB Q8 [facility]; Protocol Stop: 09/19/18 14:01 Last Admin: 09/10/18 14:02 Dose: 100 mls/hr Pantoprazole Sodium (Protonix Inj) 40 mg IVP DAILY [facility] Last Admin: 09/10/18 14:04 Dose: 40 mg - Labs Labs: 09/10/18 13:50 09/10/18 13:50 Attending/Attestation - Attestation I have personally seen and examined this patient.: Yes I have fully participated in the care of the patient.: Yes I have reviewed all pertinent clinical information, including history, physical exam and plan: Yes Notes (Text): This is an addendum to the GI progress report dictated by the resident. The patient was seen and evaluated along with the resident. Clinically patient has enterocolitis. Continue the antibiotics. Clear liquid diet. Patient still remains symptomatic physical exam still shows some tenderness. We will continue only clear liquids now. 09/10/18 19:22
[2018-09-10] MEDS: Dextrose 5%/0.45% NS 1,000 ML IV SCH ×2 (13:59→22:32)
[2018-09-10] MEDS: Meropenem IV 1 gm in NS 1 GM/50 ML BAG IVPB SCH ×2 (14:02→21:16)
[2018-09-10 14:30] LABS: EOS # 0.9 (0.0-0.7); EOS % 10.9 % (1.5-5.0); HEMOGLOBIN 11.7 g/dL (12.0-16.0); LYMPH # 2.4 (1.2-3.4); LYMPH % 30.5 % (22.0-35.0); MEAN CELL VOLUME 88.3 fl (80.0-105.0); MEAN CORPUSCULAR HEMOGLOBIN 26.9 pg (25.0-35.0); MEAN CORPUSCULAR HGB CONC 30.5 g/dl (31.0-37.0); MEAN PLATELET VOLUME 10.7 fl (7.0-11.0); MONO # 0.6 (0.1-0.6); MONO % 7.6 % (1.0-6.0); RBC 4.35 10^6/uL (3.5-6.1); RED CELL DISTRIBUTION WIDTH 14.5 % (11.5-14.5); WHITE BLOOD COUNT 7.8 10^3/uL (4.5-11.0)
--- NOTE | 2018-09-10 14:46 | NM ---
Date of service: 09/10/2018 PROCEDURE: Nuclear Medicine Hepatobiliary Scan HISTORY: r/o cholecystitis COMPARISON: None available. TECHNIQUE: 5.4 mCi of technetium 99m Mebrofenin was administered intravenously. Planar images of the abdomen were obtained at 5 min intervals to 60 mins. Delayed images were also obtained. FINDINGS: LIVER: Timely and homogenous uptake. COMMON BILE DUCT: identified at 5 mins. GALLBLADDER: identified at 15 mins. SMALL BOWEL: Identified at 5 mins. IMPRESSION: Normal Hepatobiliary Scan. The cystic duct is patent.
--- NOTE | 2018-09-10 14:48 | CON ---
DATE OF CONSULTATION: 09/10/2018 The patient is in bed, in no acute distress, and the patient is seen in 571. CHIEF COMPLAINT: Abdominal pain times several days. HISTORY OF PRESENT ILLNESS: This is a 53-year-old morbidly obese female with past medical history of morbid obesity, BMI of 44, hypertension, history of constipation kidney stones, chronic back pain, chronic obstructive lung disease, anemia, migraine, who is admitted with abdominal pain associated with nausea and vomiting and diarrhea. She is also complaining of back pain more so in the right side. She is also complaining of frequency, but no dysuria. She does have frequency. She states her urine smells foul. She has no fevers and no chills. No bright red blood per rectum. REVIEW OF SYSTEMS: Twelve-point review of systems is performed. PAST MEDICAL HISTORY: Significant for morbid obesity, BMI of 44, hypertension, constipation, kidney stones, chronic back pain, chronic obstructive lung disease, anemia, and migraine headaches. PAST SURGICAL HISTORY: Significant for tubal ligation, hysterectomy, right knee surgery, and appendectomy. ALLERGIES: THE PATIENT IS ALLERGIC TO MOXIFLOXACIN AND LEVOFLOXACIN IN ADDITION TO PINEAPPLE AND LATEX AND ASPIRIN. MEDICATIONS: Medications at home are reviewed and include Cozaar, omeprazole inhaler, Singulair, and oxycodone. PHYSICAL EXAMINATION: GENERAL: The patient is in bed, in no acute distress, however, she appears to be uncomfortable because of her pain. VITAL SIGNS: Temperature of 98, blood pressure is 115/60, respiratory rate of 20, heart rate of 87, saturation 93%. HEENT: Examination of HEENT is unremarkable. NECK: Supple. LUNGS: Have decreased breath sounds. HEART: Normal S1, S2. ABDOMEN: Soft, nontender. No rebound or guarding. There is pain in the back, and there is right-sided CVA tenderness. LABORATORY DATA: Laboratory examination reveals a white count of 9.4, hemoglobin of 13, platelets of 279 and 13% lymphocytosis. Chemistries revealed a BUN of 20, creatinine of 0.9, AST is 40, ALT is 59, Alk phos is 134. Urinalysis is noted with 15 to 20 rbc's and 5-10 wbc's, many epithelial cells, many bacteria, trace protein, moderate blood, leukocyte esterase is present and negative nitrites. The patient had a CAT scan of the abdomen and pelvis, no pyelonephritis is noted, and there is colitis, thickening of the wall of the ascending colon. Chest x-ray is negative. Emergency room chart is reviewed. The patient's EKG has a QTC of 416. ASSESSMENT AND PLAN: A 53-year-old female with, 1. Proteus mirabilis urinary tract infections with frequency of this symptom, questionable right costovertebral angle tenderness, must rule out acute gallbladder disease with colitis. We will treat the patient with meropenem 1 g IV every 8 hours, discontinue the Flagyl, and order a HIDA scan, repeat the urinalysis and urine culture. We will also order blood cultures x2 and order an human immunodeficiency virus because of her age, and we will make further recommendations upon availability of initial results and we will repeat laboratories and follow with you. Emmett Reyna MD
[2018-09-10 14:52] LABS: ALB/GLOB RATIO 1.2 (1.1-1.8); ALBUMIN 3.8 g/dL (3.0-4.8); ALT/SGPT 53 U/L (7-56); AST/SGOT 43 U/L (14-36); BLOOD UREA NITROGEN 8 mg/dL (7-21); CALCIUM 8.6 mg/dL (8.4-10.5); GFR NON-AFRICAN AMERICAN > 60
--- NOTE | 2018-09-10 16:23 | PN ---
DATE: 09/10/2018 SUBJECTIVE: The patient is 53 years old, states she went to her daughter's house and they had barbeque. After that, all family got sick whoever ate, the person who did not eat seems to be doing well. PHYSICAL EXAMINATION: GENERAL: Today, she still has cramping abdominal pain, does have appetite, does not want to have liquid diet. VITAL SIGNS: She is afebrile, pulse 72, respirations 18, and blood pressure 117/78. LUNGS: Bilateral fair airflow. No rhonchi or crackles. HEART: S1 and S2 audible. ABDOMEN: Soft and nontender. No rebound. No guarding. NEUROLOGIC: The patient is awake and alert; able to communicate. LABORATORY DATA: She has Proteus mirabilis that is resistant to most of p.o. antibiotics. She is only sensitive to amikacin and meropenem. ASSESSMENT: 1. Probably gastroenteritis after eating barbeque on . 2. Proteus mirabilis urinary tract infection. 3. History of asthmatic bronchitis. 4. Morbid obesity. 5. Migraine headaches. PLAN: We will keep the patient on clear liquid, continue IV antibiotics. We will change Rocephin to meropenem, and we need ID consult for approval. We will get Dr. Reyna involved. Itzel Claros MD
[2018-09-11] MEDS: Albuterol-Ipratrop 3 mg / 0.5 (3 ml) UD IH SCH ×4 (01:24→20:15)
[2018-09-11 02:49] LABS: URINE BILIRUBIN NEGATIVE (NEGATIVE); URINE BLOOD SMALL (NEGATIVE); URINE GLUCOSE (UA) NEGATIVE (NEGATIVE); URINE LEUKOCYTE ESTERASE NEGATIVE Leu/uL (NEGATIVE); URINE PROTEIN NEGATIVE mg/dL (<30 mg/dL); URINE UROBILINOGEN 0.2 E.U./dL (<1 E.U./dL)
[2018-09-11 02:51] LABS: URINE APPEARANCE SL CLOUDY (CLEAR); URINE COLOR YELLOW (YELLOW)
[2018-09-11 03:17] LABS: URINE RBC 0 - 2 /hpf (0-2); URINE WBC 0 - 2 /hpf (0-6)
[2018-09-11 03:18] LABS: URINE BACTERIA OCC /hpf
[2018-09-11] MEDS: Meropenem IV 1 gm in NS 1 GM/50 ML BAG IVPB SCH ×3 (05:46→21:15)
[2018-09-11] MEDS: HYDROmorphone 1 mg/ml ISec IVP PRN ×4 (06:33→21:14)
--- NOTE | 2018-09-11 10:48 | CP.PCM.PN ---
<Adal Leavitt - Last Filed: 09/11/18 20:36> Subjective - Date & Time of Evaluation Date of Evaluation: 09/11/18 Time of Evaluation: 10:00 - Subjective Subjective: Adal Leavitt Internal Medicine Resident- Progress Note on Behalf of Dr. Morfin Subjective: Patient seen and examined in chair next to bed. States epigastric abdominal pain and nausea have improved relative to baseline. Requests advance in diet. Denies further episodes of diarrhea and emesis. Denies fever, chills, chest pain, SOB, and urinary symptoms. 12 system ROS negative except as indicated in the HPI Physical Examination: - Constitutional Appears: Non-toxic, No Acute Distress - Eye Exam Eye Exam: EOMI, PERRL - ENT Exam ENT Exam: Mucous Membranes Moist - Respiratory Exam Respiratory Exam: Clear to Auscultation Bilateral. absent: Rales, Rhonchi, Wheezes - Cardiovascular Exam Cardiovascular Exam: RRR, +S1, +S2 - GI/Abdominal Exam GI & Abdominal Exam: tender to palpation in the epigastric region, Normal Bowel Sounds, Soft. absent: Distended, Firm, Guarding, Mass, Organomegaly, Rigid - Extremities Exam Extremities exam: Positive for: normal inspection. Negative for: pedal edema - Neurological Exam Neurological exam: Alert, Oriented x3 - Skin Skin Exam: Dry, Warm Studies Reviewed: CT Abdomen and Pelvis with IV Contrast- Minor fatty hepatic infiltration. Small complex appearing cystic lesion right kidney. Recommend interval surveillance to assess stability. There are additional multiple small low-attenuation foci right kidney and least 1 focus of low attenuation left kidney possibly representing hyperdense cysts. Minimal bladder wall thickening likely due to incomplete distention. Diverticulosis. Persistent mild wall thickening of a lengthy segment of descending and sigmoid colon which is likely representing likely due to combination of incomplete distention, peristalsis and some multi unopacified stool as well as mild chronic muscular hypertrophy due to diverticular disease. Appendectomy. Few small nonspecific mesenteric lymph nodes. Rule out underlying mild mesenteric adenitis. 2016 Colonoscopy- one polyp in transverse colon (bx- tubular adenoma), diverticulosis of the descending/sigmoid colon Assessment and Plan: Patient is a 53 year old female with a past medical history of asthma, migraine headaches, hypertension, morbid obesity, arthritis, and GERD who was admitted for evaluation and treatment of abdominal pain, nausea, vomiting, and diarrhea. Diverticulosis- potential colitis on imaging GERD HTN UTI- proteus mirabilis in the urine - continue with meropenum for UTI - pain control via prn IV Diluadid 1mg q4h - recommend advancing to GI soft - continue pantoprazole 40mg IV daily Patient seen, case discussed with, and plan approved by attending physician, Dr. Morfin. Objective - Vital Signs/Intake and Output Vital Signs (last 24 hours): Temp Pulse Resp BP Pulse Ox 98.1 F 70 18 105/58 L 97 09/11/18 06:00 09/11/18 06:00 09/11/18 06:00 09/11/18 06:00 09/11/18 06:00 Intake and Output: 09/11/18 09/11/18 06:59 18:59 Intake Total 3060 Output Total 300 Balance 2760 - Medications Medications: Current Medications Acetaminophen (Tylenol 325mg Tab) 650 mg PO Q6H PRN PRN Reason: Fever >100.4 F Albuterol/Ipratropium (Duoneb 3 Mg/0.5 Mg (3 Ml) Ud) 3 ml IH Q2H PRN PRN Reason: Shortness of Breath Last Admin: 09/10/18 13:52 Dose: 3 ml Albuterol/Ipratropium (Duoneb 3 Mg/0.5 Mg (3 Ml) Ud) 3 ml IH [id number] SHAQ Last Admin: 09/11/18 07:21 Dose: 3 ml Enoxaparin Sodium (Lovenox) 30 mg SC DAILY SHAQ; Protocol Last Admin: 09/10/18 10:39 Dose: 30 mg Hydromorphone HCl (Dilaudid) 1 mg IVP Q4H PRN PRN Reason: Pain, moderate (4-7) Last Admin: 09/11/18 06:33 Dose: 1 mg Dextrose/Sodium Chloride (Dextrose 5%/0.45% Ns 1000 Ml) 1,000 mls @ 100 mls/hr IV .Q10H SHAQ Last Admin: 09/10/18 22:32 Dose: 100 mls/hr Meropenem (Merrem Iv 1 Gm Premix) 1 gm in 50 mls @ 100 mls/hr IVPB Q8 SHAQ; Protocol Stop: 09/19/18 14:01 Last Admin: 09/11/18 05:46 Dose: 100 mls/hr Pantoprazole Sodium (Protonix Inj) 40 mg IVP DAILY [facility] Last Admin: 09/10/18 14:04 Dose: 40 mg - Labs Labs: 09/10/18 13:50 09/10/18 13:50 <Margarita Morfin V - Last Filed: 09/11/18 22:12> Objective - Vital Signs/Intake and Output Vital Signs (last 24 hours): Temp Pulse Resp BP Pulse Ox 98.2 F 78 18 125/77 96 09/11/18 14:00 09/11/18 14:00 09/11/18 14:00 09/11/18 14:00 09/11/18 14:00 - Medications Medications: Current Medications Acetaminophen (Tylenol 325mg Tab) 650 mg PO Q6H PRN PRN Reason: Fever >100.4 F Last Admin: 09/11/18 21:21 Dose: 650 mg Albuterol/Ipratropium (Duoneb 3 Mg/0.5 Mg (3 Ml) Ud) 3 ml IH Q2H PRN PRN Reason: Shortness of Breath Last Admin: 09/10/18 13:52 Dose: 3 ml Albuterol/Ipratropium (Duoneb 3 Mg/0.5 Mg (3 Ml) Ud) 3 ml IH [id number] [facility] Last Admin: 09/11/18 20:15 Dose: 3 ml Enoxaparin Sodium (Lovenox) 30 mg SC DAILY [facility]; Protocol Last Admin: 09/11/18 11:18 Dose: 30 mg Famotidine (Pepcid) 20 mg IVP Q12 SHAQ Last Admin: 09/11/18 21:15 Dose: 20 mg Hydromorphone HCl (Dilaudid) 1 mg IVP Q4H PRN PRN Reason: Pain, severe (8-10) Last Admin: 09/11/18 21:14 Dose: 1 mg Dextrose/Sodium Chloride (Dextrose 5%/0.45% Ns 1000 Ml) 1,000 mls @ 100 mls/hr IV .Q10H SHAQ Last Admin: 09/11/18 22:06 Dose: 100 mls/hr Meropenem (Merrem Iv 1 Gm Premix) 1 gm in 50 mls @ 100 mls/hr IVPB Q8 SHAQ; Protocol Stop: 09/19/18 14:01 Last Admin: 09/11/18 21:15 Dose: 100 mls/hr - Labs Labs: 09/10/18 13:50 09/10/18 13:50 Attending/Attestation - Attestation I have personally seen and examined this patient.: Yes I have fully participated in the care of the patient.: Yes I have reviewed all pertinent clinical information, including history, physical exam and plan: Yes Notes (Text): This is an addendum to the GI progress note dictated by the resident. The patient was seen and evaluated earlier. Patient is now tolerating diet. Antibiotics has been switched over to Merrem. Still have loose bowel movements but slowing down. The CT scan done on admission was reviewed. Patient does have some patchy thickening of the colon. Clinically suggestive of enterocolitis in addition to UTI. We Will continue Flagyl. 09/11/18 22:09
[2018-09-11] MEDS: Enoxaparin 30 mg Syringe SC SCH (11:18)
[2018-09-11] MEDS: Dextrose 5%/0.45% NS 1,000 ML IV SCH ×2 (11:32→22:06)
--- NOTE | 2018-09-11 14:26 | PN ---
DATE: 09/11/2018 SUBJECTIVE: The patient is 53 years old, seen and examined. She still has pain, but she states she is hungry, she wants to try some food. No fever. No chills. No nausea or vomiting. No diarrhea. PHYSICAL EXAMINATION: VITAL SIGNS: She is afebrile, pulse 70, respirations 18, and blood pressure 105/58. LUNGS: Bilateral fair airflow. No rhonchi or crackles. HEART: S1 and S2 audible. ABDOMEN: Soft and nontender. No rebound. No guarding. NEUROLOGIC: The patient is awake and alert and ambulatory. LABORATORY DATA: Urine is positive for Proteus mirabilis. ASSESSMENT: 1. Gastroenteritis. 2. Diffuse colitis. 3. Proteus mirabilis urinary tract infection. 4. History of asthma. 5. History of migraine headaches. PLAN: Currently, the patient is on IV fluid, analgesic as needed. We will advance her diet, and if the patient tolerates, will be discharged in a.m. Itzel Claros MD
[2018-09-12] MEDS: Albuterol-Ipratrop 3 mg / 0.5 (3 ml) UD IH SCH ×3 (03:16→13:16)
[2018-09-12] MEDS: HYDROmorphone 1 mg/ml ISec IVP PRN ×2 (03:24→08:28)
[2018-09-12] MEDS: Meropenem IV 1 gm in NS 1 GM/50 ML BAG IVPB SCH ×2 (05:18→14:10)
[2018-09-12] MEDS: Enoxaparin 30 mg Syringe SC SCH (09:45)
--- NOTE | 2018-09-12 10:21 | CP.PCM.PN ---
<Adal Leavitt - Last Filed: 09/12/18 10:19> Subjective - Date & Time of Evaluation Date of Evaluation: 09/12/18 Time of Evaluation: 07:45 - Subjective Subjective: Adal Leavitt Internal Medicine Resident- Progress Note on Behalf of Dr. Morfin Subjective: Patient seen and examined in chair next to bed. Patient states her epigastric abdominal pain is improved and nausea has resolved. Tolerating advanced diet. Denies further episodes of diarrhea and emesis. Denies fever, chills, chest pain, SOB, and urinary symptoms. 12 system ROS negative except as indicated in the HPI Physical Examination: - Constitutional Appears: Non-toxic, No Acute Distress - Eye Exam Eye Exam: EOMI, PERRL - ENT Exam ENT Exam: Mucous Membranes Moist - Respiratory Exam Respiratory Exam: Clear to Auscultation Bilateral. absent: Rales, Rhonchi, Wheezes - Cardiovascular Exam Cardiovascular Exam: RRR, +S1, +S2 - GI/Abdominal Exam GI & Abdominal Exam: Normal Bowel Sounds, Soft. absent: Distended, Firm, Guarding, Mass, Organomegaly, Rigid - Extremities Exam Extremities exam: Positive for: normal inspection. Negative for: pedal edema - Neurological Exam Neurological exam: Alert, Oriented x3 - Skin Skin Exam: Dry, Warm Studies Reviewed: CT Abdomen and Pelvis with IV Contrast- Minor fatty hepatic infiltration. Small complex appearing cystic lesion right kidney. Recommend interval surveillance to assess stability. There are additional multiple small low-attenuation foci right kidney and least 1 focus of low attenuation left kidney possibly representing hyperdense cysts. Minimal bladder wall thickening likely due to incomplete distention. Diverticulosis. Persistent mild wall thickening of a lengthy segment of descending and sigmoid colon which is likely representing likely due to combination of incomplete distention, peristalsis and some multi unopacified stool as well as mild chronic muscular hypertrophy due to diverticular disease. Appendectomy. Few small nonspecific mesenteric lymph nodes. Rule out underlying mild mesenteric adenitis. 2016 Colonoscopy- one polyp in transverse colon (bx- tubular adenoma), diverticulosis of the descending/sigmoid colon Assessment and Plan: Patient is a 53 year old female with a past medical history of asthma, migraine headaches, hypertension, morbid obesity, arthritis, and GERD who was admitted for evaluation and treatment of abdominal pain, nausea, vomiting, and diarrhea. Diverticulosis- potential colitis on imaging GERD HTN UTI- proteus mirabilis in the urine - continue with abx as per ID - pain control via prn IV Diluadid 1mg q4h - continue GI soft diet - continue pantoprazole 40mg IV daily Patient seen, case discussed with, and plan approved by attending physician, Dr. Morfin. Objective - Vital Signs/Intake and Output Vital Signs (last 24 hours): Temp Pulse Resp BP Pulse Ox 98.3 F 75 20 148/74 96 09/11/18 22:00 09/11/18 22:00 09/11/18 22:00 09/11/18 22:00 09/11/18 22:00 Intake and Output: 09/12/18 09/12/18 06:59 18:59 Intake Total 480 Balance 480 - Medications Medications: Current Medications Acetaminophen (Tylenol 325mg Tab) 650 mg PO Q6H PRN PRN Reason: Fever >100.4 F Last Admin: 09/12/18 05:22 Dose: 650 mg Albuterol/Ipratropium (Duoneb 3 Mg/0.5 Mg (3 Ml) Ud) 3 ml IH Q2H PRN PRN Reason: Shortness of Breath Last Admin: 09/10/18 13:52 Dose: 3 ml Albuterol/Ipratropium (Duoneb 3 Mg/0.5 Mg (3 Ml) Ud) 3 ml IH [id number] SHAQ Last Admin: 09/12/18 07:36 Dose: 3 ml Enoxaparin Sodium (Lovenox) 30 mg SC DAILY SHAQ; Protocol Last Admin: 09/12/18 09:45 Dose: 30 mg Famotidine (Pepcid) 20 mg IVP Q12 SHAQ Last Admin: 09/12/18 09:45 Dose: 20 mg Hydromorphone HCl (Dilaudid) 1 mg IVP Q4H PRN PRN Reason: Pain, severe (8-10) Last Admin: 09/12/18 08:28 Dose: 1 mg Dextrose/Sodium Chloride (Dextrose 5%/0.45% Ns 1000 Ml) 1,000 mls @ 100 mls/hr IV .Q10H SHAQ Last Admin: 09/11/18 22:06 Dose: 100 mls/hr Meropenem (Merrem Iv 1 Gm Premix) 1 gm in 50 mls @ 100 mls/hr IVPB Q8 SHAQ; Protocol Stop: 09/19/18 14:01 Last Admin: 09/12/18 05:18 Dose: 100 mls/hr - Labs Labs: 09/10/18 13:50 09/10/18 13:50 <Boone Morfinsebastien V - Last Filed: 09/13/18 00:47> Objective - Vital Signs/Intake and Output Vital Signs (last 24 hours): Temp Pulse Resp BP Pulse Ox 97.5 F L 77 19 120/75 99 09/12/18 14:00 09/12/18 14:00 09/12/18 14:00 09/12/18 14:00 09/12/18 14:00 - Labs Labs: 09/10/18 13:50 09/10/18 13:50 Attending/Attestation - Attestation I have personally seen and examined this patient.: Yes I have fully participated in the care of the patient.: Yes I have reviewed all pertinent clinical information, including history, physical exam and plan: Yes Notes (Text): The patient was seen and evaluated the earlier along with the resident. This is an addendum to the progress note dictated by the resident. Patient was very upset because of the in the family. Patient wants to leave the hospital. Clinically improving tolerating diet. Clinically appears to be gastroenteritis Patient's urine culture shows ESBL. Antibiotics as per ID. Completed course. Advised the patient follow-up in the office. Discussed with the patient about the importance of follow-up. Patient fully understood. 09/13/18 00:45
--- NOTE | 2018-09-12 14:31 | PN ---
DATE: 09/12/2018 SUBJECTIVE: The patient is in bed, in no acute distress, seen earlier today. No fevers or chills. PHYSICAL EXAMINATION: VITAL SIGNS: Temperature is 98, blood pressure is 113/70, respiratory rate of 18, heart rate 70. HEENT: Unremarkable. NECK: Supple. LUNGS: Decreased breath sounds. HEART: Normal S1 and S2. ABDOMEN: Soft. LABORATORY DATA: Reveals the patient's urine culture has Proteus mirabilis, resistant pattern is noted. Repeat urine culture is negative. Blood cultures are negative. REVIEW OF ORDERS: Reveals the patient to be on meropenem. ASSESSMENT AND PLAN: This is a 53-year-old female who has Proteus mirabilis urinary tract infection with frequency of this symptom being questionable costovertebral angle tenderness and acute gallbladder disease with colitis. Currently, on meropenem. Repeat urine culture is negative and repeat urinalysis is noncontributory. The patient also had a HIDA scan which was negative. Currently on meropenem day #3, we would recommend 5 to 7 days of meropenem. Emmett Reyna MD
[2018-09-12 15:05] VITALS: BP 120/75; PULSE 77; RESP 19; TEMP 97.5; O2SAT 99
--- NOTE | 2018-09-13 03:21 | DS ---
HISTORY OF PRESENT ILLNESS: The patient is a 53-year-old, who went to [place] on . When they came back, most of the family members were sick. The patient states she started to have abdominal discomfort, nausea, vomiting, and diarrhea. She was kept n.p.o. for three days, started to clear liquid diet yesterday and was advanced today. She states her belly pain is better. No more diarrhea. She states she feels nauseous at times. PHYSICAL EXAMINATION: VITAL SIGNS: She is afebrile, pulse 77, respirations 19, and blood pressure 120/75. LUNGS: Bilateral fair airflow. No rhonchi or crackle. HEART: S1 and S2 audible. ABDOMEN: Soft and nontender. No rebound. No guarding. NEUROLOGIC: The patient is awake and alert; able to communicate. EXTREMITIES: Bilateral leg, no edema. ASSESSMENT: 1. Gastroenteritis. 2. Pancolitis. 3. History of hypertension. 4. Asthmatic bronchitis. 5. Noninsulin-dependent diabetes. 6. Morbid obesity. PLAN: The patient is being discharged on Flagyl 250 q.i.d. for five more days. She is advised to be on soft diet. The patient's father just , and she wants to go home. She states she will stay on soft diet and will be compliant with medications. She will follow up in office in a week. Itzel Claros MD
== END 2018-09-12 15:08 | disposition home or self-care (01) | DRG 392 ==
LOC: ED 09:41 → ERH 16:17 → 5RSO 18:10
PROVIDERS: ADMIT Internal Medicine; ATTEND Internal Medicine
DX: K52.9 Noninfective gastroenteritis and colitis, unspecified (principal); Z68.41 Body mass index [BMI] 40.0-44.9, adult; N39.0 Urinary tract infection, site not specified; K81.0 Acute cholecystitis; I10 Essential (primary) hypertension; G43.909 Migraine, unspecified, not intractable, without status migrainosus; K57.90 Diverticulosis of intestine, part unspecified, without perforation or abscess without bleeding; J45.20 Mild intermittent asthma, uncomplicated; E66.01 Morbid (severe) obesity due to excess calories; K21.9 Gastro-esophageal reflux disease without esophagitis; Z87.440 Personal history of urinary (tract) infections; B96.89 Other specified bacterial agents as the cause of diseases classified elsewhere; B96.4 Proteus (mirabilis) (morganii) as the cause of diseases classified elsewhere; E11.9 Type 2 diabetes mellitus without complications; E78.5 Hyperlipidemia, unspecified; J44.9 Chronic obstructive pulmonary disease, unspecified; K59.00 Constipation, unspecified; M17.10 Unilateral primary osteoarthritis, unspecified knee; Z87.442 Personal history of urinary calculi; Z90.710 Acquired absence of both cervix and uterus; Z96.653 Presence of artificial knee joint, bilateral; Z16.12 Extended spectrum beta lactamase (ESBL) resistance